=== PATIENT | female | born 1970 | race Caucasian/White ===

== ENCOUNTER 2017-02-03 15:49 | Emergency (ER) | payer BC ==
[2017-02-03 16:39] LABS: Hematocrit 43 % (35-47); Hemoglobin 14.6 g/dl (12.0-16.0); Mean Corpuscular HGB Conc 34 g/dl (31-36); Mean Corpuscular Hemoglobin 32 pg (27-31); Mean Corpuscular Volume 93 fL (80-97); Mean Platelet Volume 7 um3 (7.4-10.4); Red Blood Count 4.58 10^6/ul (4.0-5.4); Red Cell Distribution Width 13 % (10.5-15); White Blood Count 6.9 10^3/ul (3.5-10.8)
[2017-02-03 16:55] LABS: Albumin 4.2 g/dL (3.2-5.2); BUN/Creatinine Ratio 18.8 (8-20); Calcium 8.9 mg/dL (8.6-10.3); EGFR African American 99.8 (>60); EGFR Non-African American 77.6 (>60); Globulin 3.2 g/dL (2-4); Magnesium 2.4 mg/dL (1.9-2.7); Potassium 3.8 mmol/L (3.5-5.0); Total Bilirubin 0.5 mg/dL (0.2-1.0); Total Protein 7.4 g/dL (6.4-8.9)
[2017-02-03 16:56] LABS: Troponin I 0.01 ng/mL (<0.04)
[2017-02-03 17:34] LABS: TSH (Thyroid Stimulating Horm) 2.37 mcIU/mL (0.34-5.60)
--- NOTE | 2017-02-03 17:47 | RAD ---
Indication: Head fullness. CT of the brain was performed without IV contrast. Ventricular structures are midline. No midline shift is noted. The extraction spaces are unremarkable. There is no evidence of intracranial mass or hemorrhage. No other high or low density lesions are identified. Mastoid air cells and paranasal sinuses are unremarkable. IMPRESSION: No intracranial mass or hemorrhage is noted.
[2017-02-03] MEDS ORDERED: Amoxicillin/Clavulanate TAB* 875 MG PO ONE (18:36)
--- NOTE | 2017-02-03 18:46 | ED ---
Rayne Tolentino SooYoung, scribed for Zee Spencer MD on 02/03/17 at 1601 . Syncope/Near Syncope - HPI Summary HPI Summary: A 46 y/o F referred from [facility] [place] presents to ED with c/o near-syncopal episode onset this AM. felt off when she woke up and during driving. She felt as though she might pass out, describes it as "sleepy lids." Associated sx: neck stiffness , mild sinus pressure. Denies CP, GALLEGOS but says she has "pressure" in her head anterior and posterior. No slurred speech, no visual changes, no difficulty finding words, no weakness. Pert PMHx: migraines; whiplash. She saw the chiropractor three days ago. PCP is Dr. Ahmadi. Pert PMHx: HTN. She is scheduled to go to [place] for a week in a few days. - History Of Current Complaint Chief Complaint: EDSyncope Time Seen by Provider: 02/03/17 15:56 Hx Obtained From: Patient Onset/Duration: Still Present Activity At Onset: At Rest Associated Head Trauma: No Associated Signs And Symptoms: Other - see HPI - Allergies/Home Medications Allergies/Adverse Reactions: Allergies Allergy/AdvReac Type Severity Reaction Status Date / Time Latex Allergy makes Verified 02/03/17 16:19 eczema worse Sulfa Drugs AdvReac Intermediate DIZZINESS, Verified 02/03/17 16:19 N/V PMH/Surg Hx/FS Hx/Imm Hx Previously Healthy: No Endocrine/Hematology History: Denies: Hx Diabetes, Hx Thyroid Disease Cardiovascular History: Reports: Hx Hypertension - on meds, Other Cardiovascular Problems/Disorders - WAKING WITH CRAMPING IN CALVES 1 X WK Denies: Hx Pacemaker/ICD Respiratory History: Reports: Hx Sleep Apnea, Other Respiratory Problems/ Disorders - Sinus Infections Denies: Hx Asthma, Hx Chronic Obstructive Pulmonary Disease (COPD) GI History: Reports: Hx Hiatal Hernia Denies: Hx Ulcer History: Denies: Hx Renal Disease Sensory History: Denies: Hx Contacts or Glasses, Hx Hearing Aid Opthamlomology History: Denies: Hx Contacts or Glasses Neurological History: Reports: Hx Headaches - R/T LIQUID DIET, Hx Migraine - OCCASIONALLY Psychiatric History: Reports: Hx Anxiety Denies: Hx Attention Deficit Hyperactivity Disorder, Hx Eating Disorder, Hx Depression, Hx Panic Disorder, Hx Post Traumatic Stress Disorder, Hx Inpatient Treatment, Hx Community Mental Health Tx, Hx Schizophrenia, Hx Bipolar Disorder , Hx Suicide Attempt, Hx of Violent Episodes Against Others, Hx Substance Abuse , Other Psychiatric Issues/Disorders - Cancer History Hx Chemotherapy: No Hx Radiation Therapy: No - Surgical History Surgery Procedure, Year, and Place: gastric bypass Hx Anesthesia Reactions: No Infectious Disease History: Denies: Hx Clostridium Difficile, Hx Hepatitis, Hx Human Immunodeficiency Virus (HIV), Hx of Known/Suspected MRSA, Hx Shingles, Hx Tuberculosis, Hx Known/ Suspected VRE, Hx Known/Suspected VRSA, History Other Infectious Disease, Traveled Outside the US in Last 30 Days - Family History Known Family History: Positive: Cardiac Disease - [place] - father, Hypertension, Other - [place] - mother - Social History Occupation: Employed Full-time Lives: With Family Alcohol Use: Occasionally Hx Substance Use: No Substance Use Type: Reports: None Hx Tobacco Use: No Smoking Status (MU): Never Smoked Tobacco Review of Systems Negative: Fever Negative: Other - neg: visual changes Positive: Other - pos: mild sinus pressure Negative: Chest Pain Positive: Other - pos: neck stiffness Neurological: Other - pos: denies GALLEGOS but has anterior and posterior head pressure; neg: difficulty finding words Positive: Syncope - near-syncope. Negative: Weakness, Slurred Speech All Other Systems Reviewed And Are Negative: Yes Physical Exam Triage Information Reviewed: Yes Vital Signs On Initial Exam: Initial Vitals Temp Pulse Resp BP Pulse Ox 97.1 F 73 20 186/100 100 02/03/17 15:50 02/03/17 15:50 02/03/17 15:50 02/03/17 15:50 02/03/17 15:50 Vital Signs Reviewed: Yes Appearance: Positive: Well-Appearing, No Pain Distress Skin: Positive: Warm, Skin Color Reflects Adequate Perfusion, Dry Eyes: Positive: EOMI, YAQUELIN ENT: Positive: Pharynx normal, TMs normal Neck: Positive: Supple, Nontender Respiratory/Lung Sounds: Positive: Clear to Auscultation, Breath Sounds Present. Negative: Rales, Rhonchi, Wheezes Cardiovascular: Positive: RRR. Negative: Murmur, Rub, Other - no gallop Abdomen Description: Positive: Nontender, Soft. Negative: Distended, Guarding, Other: - neg: rebound Bowel Sounds: Positive: Present Musculoskeletal: Positive: Strength/ROM Intact. Negative: Edema Left, Edema Right Neurological: Positive: Sensory/Motor Intact, Alert, Oriented to Person Place, Time, CN Intact II-III Psychiatric: Positive: Affect/Mood Appropriate Diagnostics - Vital Signs Vital Signs Temp Pulse Resp BP Pulse Ox 02/03/17 15:50 97.1 F 73 20 186/100 100 - Laboratory Lab Results: Lab Results 02/03/17 02/03/17 Range/Units 16:25 16:25 WBC 6.9 (3.5-10.8) 10^3/ul RBC 4.58 (4.0-5.4) 10^6/ul Hgb 14.6 (12.0-16.0) g/dl Hct 43 (35-47) % MCV 93 (80-97) fL MCH 32 H (27-31) pg MCHC 34 (31-36) g/dl RDW 13 (10.5-15) % Plt Count 273 (150-450) 10^3/ul MPV 7 L (7.4-10.4) um3 Neut % (Auto) 56.7 (38-83) % Lymph % (Auto) 35.5 (25-47) % [place] % (Auto) 6.4 (1-9) % Eos % (Auto) 0.6 (0-6) % Baso % (Auto) 0.8 (0-2) % Absolute Neuts (auto) 3.9 (1.5-7.7) 10^3/ul Absolute Lymphs (auto) 2.4 (1.0-4.8) 10^3/ul Absolute Monos (auto) 0.4 (0-0.8) 10^3/ul Absolute Eos (auto) 0 (0-0.6) 10^3/ul Absolute Basos (auto) 0.1 (0-0.2) 10^3/ul Absolute Nucleated RBC 0 10^3/ul Nucleated RBC % 0 Sodium 136 (133-145) mmol/L Potassium 3.8 (3.5-5.0) mmol/L Chloride 104 (101-111) mmol/L Carbon Dioxide 24 (22-32) mmol/L Anion Gap 8 (2-11) mmol/L BUN 15 (6-24) mg/dL Creatinine 0.80 (0.51-0.95) mg/dL Est GFR ( Amer) 99.8 (>60) Est GFR (Non-Af Amer) 77.6 (>60) BUN/Creatinine Ratio 18.8 (8-20) Glucose 101 H (70-100) mg/dL Calcium 8.9 (8.6-10.3) mg/dL Magnesium 2.4 (1.9-2.7) mg/dL Total Bilirubin 0.50 (0.2-1.0) mg/dL AST 15 (13-39) U/L ALT 11 (7-52) U/L Alkaline Phosphatase 36 (34-104) U/L Troponin I 0.01 (<0.04) ng/mL Total Protein 7.4 (6.4-8.9) g/dL Albumin 4.2 (3.2-5.2) g/dL Globulin 3.2 (2-4) g/dL Albumin/Globulin Ratio 1.3 (1-3) TSH 2.37 (0.34-5.60) mcIU/mL Result Diagrams: 02/03/17 16:25 02/03/17 16:25 Lab Statement: Any lab studies that have been ordered have been reviewed, and results considered in the medical decision making process. - CT BRAIN CT CT Interpretation: No Acute Changes - IMPRESSION: No acute intracranial mass or hemorrhage is noted. CT Interpretation Completed By: Radiologist - EKG 1557 Cardiac Rate: NL - 69 EKG Rhythm: Sinus Rhythm EKG Interpretation: early R-wave progression EKG Comparison: Other - early R-wave progression is new compared to EKG from 05/29/2013 Re-Evaluation - Re-Evaluation 1 Re-Evaluation Time: 18:37 Change: Improved Comment: Discussing results and dispo with pt. Pt voiced understanding. Course/Dx Course Of Treatment: pt describes feeling like she couldn't stay awake more than she was passing out labs look good and ct looks good she does have pretty bad sinus pain and feels like she has a new infection abx ordered - Diagnoses Provider Diagnoses: Sinusitis Discharge - Discharge Plan Condition: Stable Disposition: HOME Prescriptions: Amoxicillin/Clavulanate TAB* [Augmentin TAB 875*] 875 mg PO BID #20 tab Cyclobenzaprine TAB* [Flexeril 10 MG TAB*] 10 mg PO TID PRN #30 tab PRN Reason: Spasms Naproxen [Naprosyn 500 mg] 500 mg PO BID PRN #20 tab PRN Reason: Pain Patient Education Materials: Cyclobenzaprine (By mouth), Amoxicillin/ Clavulanate Potassium (By mouth), Naproxen (By mouth), Near Syncope (ED) Referrals: Alfredito Ahmadi MD [Primary Care Provider] - Additional Instructions: Follow up with your primary care provider in the next 2-3 days. Please return to the ED for new or worsening symptoms. The documentation as recorded by the Rayne montgomery SooYoung accurately reflects the service I personally performed and the decisions made by me, Zee Spencer MD.
[2017-02-03 18:50] VITALS: BP 128/93
== END 2017-02-03 19:48 | disposition home or self-care (01) ==
LOC: ED 15:49
DX: J32.9 Chronic sinusitis, unspecified (principal); R55 Syncope and collapse
CPT/HCPCS: 36415; 70450; 80053; 83735; 84443; 84484; 85025; 93005; 99283; A9270-GY

== ENCOUNTER 2017-03-30 10:03 | Emergency (ER) | payer BC ==
[2017-03-30 10:12] VITALS: BP 166/98
[2017-03-30] MEDS ORDERED: Acetaminophen TAB* 325 MG PO ONE (10:49)
--- NOTE | 2017-03-30 10:55 | ED ---
Head Injury - HPI Summary HPI Summary: Pt here w/ fall downstairs last night - slipped on step while carrying laundry and fell back and onto Rt side. Pain in occipital region noticed more today. Nausea. Chronic neck pain and tough to tell if worse. Denies LOC, change in vision, photophobia, vomiting, numbness, tingling, weakness, change in behavior/ speech (per ). Also reports Rt elbow bruising - sore but moving well and bone is NTTP per pt. Rt foot instep sore as well - can bear weight w/o difficulty, no swelling, no numbness or tingling. Bones are also NTTP here. H/o head injuries over the years but nothing with residual effects - no formal dx of concussion. Last head injury last year - completely resolved. They report multiple people in family have fallen down stairs and are going to address this. - History Of Current Complaint Chief Complaint: EDGeneral Stated Complaint: FALL HEAD INJURY Time Seen by Provider: 03/30/17 10:20 Hx Obtained From: Patient, Family/Door Tender - Hx Last Menstrual Period: 01/30/16 Pain Intensity: 4 - Allergies/Home Medications Allergies/Adverse Reactions: Allergies Allergy/AdvReac Type Severity Reaction Status Date / Time Latex Allergy makes Verified 02/03/17 16:19 eczema worse Sulfa Drugs AdvReac Intermediate DIZZINESS, Verified 02/03/17 16:19 N/V PMH/Surg Hx/FS Hx/Imm Hx Previously Healthy: Yes Endocrine/Hematology History: Denies: Hx Anticoagulant Therapy, Hx Blood Disorders, Hx Diabetes, Hx Thyroid Disease, Hx Unexplained Bleeding Cardiovascular History: Reports: Hx Hypertension - on meds, Other Cardiovascular Problems/Disorders - h/o calf cramps Denies: Hx Pacemaker/ICD Respiratory History: Reports: Hx Sleep Apnea, Other Respiratory Problems/ Disorders - Sinus Infections Denies: Hx Asthma, Hx Chronic Obstructive Pulmonary Disease (COPD) GI History: Reports: Hx Hiatal Hernia, Other GI Disorders - gastric bypass surgery 2012 Denies: Hx Ulcer History: Denies: Hx Renal Disease Sensory History: Denies: Hx Contacts or Glasses, Hx Hearing Aid Opthamlomology History: Denies: Hx Contacts or Glasses Neurological History: Reports: Hx Headaches - R/T LIQUID DIET, Hx Migraine - OCCASIONALLY Psychiatric History: Reports: Hx Anxiety Denies: Hx Attention Deficit Hyperactivity Disorder, Hx Eating Disorder, Hx Depression, Hx Panic Disorder, Hx Post Traumatic Stress Disorder, Hx Inpatient Treatment, Hx Community Mental Health Tx, Hx Schizophrenia, Hx Bipolar Disorder , Hx Suicide Attempt, Hx of Violent Episodes Against Others, Hx Substance Abuse , Other Psychiatric Issues/Disorders - Cancer History Hx Chemotherapy: No Hx Radiation Therapy: No - Surgical History Surgery Procedure, Year, and Place: gastric bypass Hx Anesthesia Reactions: No Infectious Disease History: No Infectious Disease History: Denies: Hx Clostridium Difficile, Hx Hepatitis, Hx Human Immunodeficiency Virus (HIV), Hx of Known/Suspected MRSA, Hx Shingles, Hx Tuberculosis, Hx Known/ Suspected VRE, Hx Known/Suspected VRSA, History Other Infectious Disease, Traveled Outside the [place] in Last 30 Days - Family History Known Family History: Positive: Cardiac Disease - [place] - father, Hypertension, Other - [place] - mother - Social History Lives: With Family Alcohol Use: Weekly Hx Substance Use: No Substance Use Type: Reports: None Hx Tobacco Use: No Smoking Status (MU): Never Smoked Tobacco Review of Systems Constitutional: Negative Negative: Fatigue Eyes: Negative Negative: Photophobia, Blurred Vision, Diplopia Positive: Other - bit Lt side of tongue w/ fall - better today. Negative: Dental Pain - tiny chip in front tooth - NTTP, no laxity, no pain Cardiovascular: Negative Negative: Chest Pain Respiratory: Negative Negative: Shortness Of Breath, Cough Gastrointestinal: Negative Negative: Abdominal Pain, Vomiting, Diarrhea, Nausea Positive: no symptoms reported Musculoskeletal: Other - see HPI Positive: Bruising - see HPI Positive: Headache. Negative: Weakness, Paresthesia, Numbness, Syncope, Slurred Speech Psychological: Normal All Other Systems Reviewed And Are Negative: Yes Physical Exam Triage Information Reviewed: Yes Vital Signs On Initial Exam: Initial Vitals Temp Pulse Resp BP Pulse Ox 97.2 F 77 18 166/98 97 03/30/17 10:06 03/30/17 10:06 03/30/17 10:06 03/30/17 10:06 03/30/17 10:06 Vital Signs Reviewed: Yes Appearance: Positive: Well-Appearing, No Pain Distress, Well-Nourished Skin: Positive: Warm, Dry - ecchymosis over Rt dorsal elbow region- no edema, NTTP; FROM w/o pain or restriction; no skin breakdown; Rt foot is w/o edema, ecchymosis, skin breakdown Head/Face: Positive: Other - occipital region TTP - no lily edema, no step off , no battlesign - no skin changes appreciated in area Eyes: Positive: Normal, EOMI, YAQUELIN, Conjunctiva Clear ENT: Positive: Normal ENT inspection, Hearing grossly normal, Pharynx normal, TMs normal - no hemotympanum. Negative: Nasal drainage, Trismus Dental: Negative: Percussion Tenderness @, Dental Fracture @ Neck: Positive: Other: - hypertonic paracervical mm - spinous pp NTTP however difficult to report if pain felt is new or old; pain in head w/ Spurling on Lt - no lily sx into shoulder or arm Respiratory/Lung Sounds: Positive: Clear to Auscultation, Breath Sounds Present , Other - NTTP, no pain w/ deep breath. Negative: Rales, Rhonchi, Subcutaneous Emphysema, Stridor, Tracheal Deviation, Wheezes Cardiovascular: Positive: Normal, RRR, Pulses are Symmetrical in both Upper and Lower Extremities, S1, S2 Abdomen Description: Positive: Nontender, Soft Bowel Sounds: Positive: Present Musculoskeletal: Positive: Normal, Strength/ROM Intact Neurological: Positive: Normal, Sensory/Motor Intact, Alert, Oriented to Person Place, Time, CN Intact II-III, Reflexes Intact, Normal Gait, Finger to Nose, Facial Symmetry, Speech Normal, Other - heel to avalos normal. Negative: Pronator Drift Present Psychiatric: Positive: Normal - [place] Coma Scale Coma Scale Total: 15 Diagnostics - Vital Signs Vital Signs Temp Pulse Resp BP Pulse Ox 03/30/17 10:41 75 96 03/30/17 10:06 97.2 F 77 18 166/98 97 - Laboratory Lab Statement: Any lab studies that have been ordered have been reviewed, and results considered in the medical decision making process. Head Injury Course/Dx Course Of Treatment: Pt here w/ focal occipital head pain s/p fall. Dx'd w/ contusion and to monitor for s/sx of concussion. Reviewed danger s/sx of when to return to ED - otherwise, f/u w/ PCP. Neck pain is chronic and advise ongoing therapy as she is currently doing. CT revealed incidental finding of thyroid mass - discussed results w/ pt and need for f/u - she and agree w/ plan. - Diagnoses Provider Diagnoses: Fall down stairs, Head injury, Cervical strain, Contusion of right elbow, Contusion of right foot, Thyroid nodule Discharge - Discharge Plan Condition: Stable Disposition: HOME Patient Education Materials: Head Injury (ED), Contusion in Adults (ED), Thyroid Nodules (ED) Referrals: Alfredito Ahmadi MD [Primary Care Provider] - Additional Instructions: Your head injury appears to be clear of significant pathology - you do not appear to have a concussion or internal bleeding, skull fracture. You may treat this as a contusion - ice, acetaminophen as needed for pain and swelling. You may treat your foot and elbow the same but may elevate these for additional comfort as needed. If symptoms persist, follow-up with PCP. *If you develop change in vision, weakness, numbness, syncope, slurred speech, severe headache, vomiting, return to ED NOTE: your CT scan revealed an incidental finding of a thyroid nodule. It is advised that you follow-up with your PCP this week to further discuss plan. Your report was provided to you today.
--- NOTE | 2017-03-30 11:24 | RAD ---
HISTORY: Fall, head pain February 03, 2017 COMPARISONS: None TECHNIQUE: Multiple contiguous axial CT scans were obtained of the head without intravenous contrast. FINDINGS: HEMORRHAGE/INFARCT: There is no hemorrhage or acute infarct. MASSES/SHIFT: There is no mass or shift. EXTRA-AXIAL SPACES: There are no extra-axial fluid collections. SULCI AND VENTRICLES: The sulci and ventricles are normal in size and position for the patient's stated age. CEREBRUM: There are no focal parenchymal abnormalities. BRAINSTEM: There are no focal parenchymal abnormalities. CEREBELLUM: There are no focal parenchymal abnormalities. VESSELS: The vessels are grossly normal. PARANASAL SINUSES: The paranasal sinuses are clear. ORBITS: The orbits are unremarkable. BONES AND SOFT TISSUE: No bone or soft tissue abnormalities are noted. OTHER: None IMPRESSION: NO ACUTE INTRACRANIAL PATHOLOGY.
--- NOTE | 2017-03-30 11:29 | RAD ---
HISTORY: Fall, occipital pain COMPARISONS: None TECHNIQUE: Multiple contiguous axial CT scans were obtained of the cervical spine without intravenous contrast, with coronal and sagittal multiplanar reformations. FINDINGS: BRAIN: The visualized brain is unremarkable CENTRAL CANAL: Evaluation of the central canal is limited on CT technique; however, there is no obvious canalicular mass or epidural hemorrhage. ALIGNMENT: The alignment is normal, without subluxation or dislocation. VERTEBRAL BODIES: The odontoid process is intact. The atlantoaxial intervals are symmetric. The vertebral bodies are normal in attenuation, without fracture. JOINTS: There is no subluxation or dislocation. MUSCULATURE: Unremarkable INTERVERTEBRAL DISCS: There is diffuse loss of intervertebral disc height. AXIAL IMAGES: C2-C3: There is no osseous neural foraminal narrowing or central canal stenosis. C3-C4: There is no osseous neural foraminal narrowing or central canal stenosis. C4-C5: There is no osseous neural foraminal narrowing or central canal stenosis. C5-C6: There is no osseous neural foraminal narrowing or central canal stenosis. C6-C7: There is no osseous neural foraminal narrowing or central canal stenosis. C7-T1: There is no osseous neural foraminal narrowing or central canal stenosis. SOFT TISSUES: The prevertebral fat stripe is preserved. There is a 3.1 cm left thyroid nodule OTHER: None. IMPRESSION: 1. NO ACUTE OSSEOUS INJURY TO THE CERVICAL SPINE. 2. 3.1 CM LEFT THYROID NODULE. RECOMMEND CORRELATION WITH DEDICATED IMAGING OF THE THYROID IN THE NONACUTE SETTING.
== END 2017-03-30 13:04 | disposition home or self-care (01) ==
LOC: ED 10:03
DX: S09.90XA Unspecified injury of head, initial encounter (principal); S16.1XXA Strain of muscle, fascia and tendon at neck level, initial encounter; S50.01XA Contusion of right elbow, initial encounter; E04.1 Nontoxic single thyroid nodule; R51 Headache; W10.9XXA Fall (on) (from) unspecified stairs and steps, initial encounter; Y93.9 Activity, unspecified; Y92.9 Unspecified place or not applicable; Y99.9 Unspecified external cause status
CPT/HCPCS: 70450; 72125; 99282; A9270-GY

== ENCOUNTER 2017-06-25 08:55 | Emergency (ER) | payer BC ==
--- OUTSIDE RECORDS SUMMARY | 2017-06-25 09:12 | XMS REPORT ---
:1970 External Reference #:[id number] Author Organization [facility] Address [address] [place] [address] Phone [phone] Care Team Providers Name Role Phone Alfredito Ahmadi M.D. Care Team Information Sales Agent Financial Report Service Unavailable Alfredito Ahmadi M.D. Primary Care Physician Unavailable Payers Type Date Identification Numbers Payment Provider Subscriber Commercial Policy Number: [id number] [facility] Angie Harden Group Number: [id number] 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 Cigarette Use Never smoked cigarettes Cigars Does not smoke cigars Pipe Does not smoke a pipe Smokeless Tobacco Does not use smokeless tobacco Alcohol Drinks alcohol occasionally Smoking Patient is a former smoker Allergies, Adverse Reactions, Alerts Date Description Reaction Status Severity Comments 09/02/2008 Sulfa Skin Rashes/Hives active Medications Medication Date Status Form Strength Qnty SIG Indications Ordering Provider Fluticasone 01/07/ Active Suspension 50mcg/Act 1mont 2 sprays Carlos Propionate 2013 h each adarsh Smallwood MD daily Metoprolol / Active 75mg Unknown Succinate 0000 Cetirizine HCL / Active Unknown 10 MG 0000 Vesicare / Active Tablets 10mg 1 by Darlow, 0000 mouth Alfredito every day M.D. Montelukast / Active Tablets 10mg 1 by Darlow, Sodium 0000 mouth Alfredito every day M.D. Fluticasone / Active 50mcg 2 sprays Darlow, Nasal [place] 0000 each side Alfredito twice a M.D. day Elidel / Active Cream 1% as needed Unknown 0000 Triamcinolone / Active Cream 0.1% twice a Unknown Acetonide 0000 day Melatonin / Active Capsules 5mg take as Unknown 0000 directed Prozac / Active Capsules 20mg as Unknown 0000 directed Vitamin B12 / Active Tablets Sub 3000mcg as Unknown 0000 directed Calcium + D3 / Active Unknown 0000 Avapro // Hx Unknown - 2012 Flonase // Hx Unknown - 2012 Zyrtec / Hx Unknown - 2012 Fluoxetine / Hx Unknown 2012 Losartan / Hx Unknown Potassium 100 0000 - MG 2016 Fluticasone / Hx 50mcg Unknown Propionate 0000 - 2016 Vital Signs Date Vital Result Comment 05/30/2017 Weight 144.00 lb Weight in kg's 65.318 Height 65 inches 5'5" Height in cm's 165.1 cm BMI (Body Mass Index) 24.0 kg/m2 01/07/2013 BP Systolic 156 mmHg BP Diastolic 80 mmHg Heart Rate 68 /min Respiratory Rate 16 /min Weight 279.00 lb Weight in kg's 126.554 Height 65 inches 5'5" Height in cm's 165.1 cm BMI (Body Mass Index) 46.4 kg/m2 10/28/2008 Heart Rate 80 /min Respiratory Rate 18 /min Weight 175.00 lb Weight in kg's 79.380 09/24/2008 Heart Rate 80 /min Respiratory Rate 16 /min Weight 175.00 lb Weight in kg's 79.380 09/02/2008 Heart Rate 72 /min Respiratory Rate 16 /min Body Temperature 175.0 F Results Description No Information Procedures Date CPT Code Description Status 01/07/2013 21440 Nasal Endoscopy, Diagnostic Completed 09/24/2008 24206 Excision Turbinates, Partial Or Complete Completed 09/02/2008 16615 Tympanometry Completed 09/02/2008 35418 Comprehensive Audiogram Completed Encounters Type Date Location Provider CPT E/M Dx Office Visit 05/30/2017 3:00p [place],After 06/24/07 [place] [address] E04.1 Office Visit 01/07/2013 3:00p [place],After 06/24/07 [place] [address] 478.0 477.8 327.23 Office Visit 10/28/2008 3:30p [place],After 06/24/07 [place] [address] 478.0 401.9 Office Visit 09/02/2008 2:30p [place],After 06/24/07 [place] [address] 401.9 381.81 389.10 478.0 472.0 Plan of Care No Information Available
[2017-06-25 13:22] VITALS: BP 154/97
--- NOTE | 2017-06-25 17:37 | ED ---
Ab Tolentino Angela, scribed for Lizbeth Nicholas MD on 06/25/17 at 1010 . Substance Abuse/Use - HPI Summary HPI Summary: This pt is a 47 y/o female presenting to [facility] for alcohol detox. Pt reports she has been an alcoholic for 2 years, after her mother . Denies any other drug abuse. Pt notes she drinks a bottle (750 ml) of wine a day. She states she has been drinking more than normal during this holiday season. She reports she has been waking up shaking. Pt additionally notes headache and blurry vision. Her last alcohol drink was yesterday at 19:00. Pt notes her shaking has been getting better. She denies fever, chills, plopia, ear ache, chest pain, SOB, constipation, hematuria, swelling in LE. No prior detox. No suicidal gestures. She denies SI thoughts/plan. Pt would like a private detox center. Pt is currently on 50 mg of Zoloft for anxiety. PSHx includes gastric bypass 4 years ago. - History Of Current Complaint Chief Complaint: EDDetoxRequest Stated Complaint: EVALUATION ALCOHOL Time Seen by Provider: 06/25/17 09:42 Hx Obtained From: Patient Hx Last Menstrual Period: 01/30/16 Onset/Duration of Drug/ETOH Abuse: Weeks Ingestion History: Amount Ingested - 1 bottle of wine/day Overdose Characteristics: Oral Timing Of Abuse: Daily Severity Currently: Moderate Character: Depressed Aggravating Factor(s): Other - holiday season Associated Signs And Symptoms: Tremulous - Allergies/Home Medications Allergies/Adverse Reactions: Allergies Allergy/AdvReac Type Severity Reaction Status Date / Time Latex Allergy makes Verified 06/25/17 09:03 eczema worse Sulfa Drugs AdvReac Intermediate DIZZINESS, Verified 06/25/17 09:03 N/V PMH/Surg Hx/FS Hx/Imm Hx Endocrine/Hematology History: Denies: Hx Anticoagulant Therapy, Hx Blood Disorders, Hx Diabetes, Hx Thyroid Disease, Hx Anemia, Hx Unexplained Bleeding Cardiovascular History: Reports: Hx Hypertension - on meds, Other Cardiovascular Problems/Disorders - h/o calf cramps Denies: Hx Pacemaker/ICD Respiratory History: Reports: Hx Sleep Apnea, Other Respiratory Problems/ Disorders - Sinus Infections Denies: Hx Asthma, Hx Chronic Obstructive Pulmonary Disease (COPD) GI History: Reports: Hx Hiatal Hernia, Other GI Disorders - gastric bypass surgery 2012 Denies: Hx Jaundice, Hx Ulcer History: Denies: Hx Renal Disease Sensory History: Denies: Hx Contacts or Glasses, Hx Hearing Aid Opthamlomology History: Denies: Hx Contacts or Glasses Neurological History: Reports: Hx Headaches - R/T LIQUID DIET, Hx Migraine - OCCASIONALLY Psychiatric History: Reports: Hx Anxiety Denies: Hx Attention Deficit Hyperactivity Disorder, Hx Eating Disorder, Hx Depression, Hx Panic Disorder, Hx Post Traumatic Stress Disorder, Hx Inpatient Treatment, Hx Community Mental Health Tx, Hx Schizophrenia, Hx Bipolar Disorder , Hx Suicide Attempt, Hx of Violent Episodes Against Others, Hx Substance Abuse , Other Psychiatric Issues/Disorders - Cancer History Hx Chemotherapy: No Hx Radiation Therapy: No - Surgical History Surgery Procedure, Year, and Place: gastric bypass Hx Anesthesia Reactions: No Infectious Disease History: Yes Infectious Disease History: Denies: Hx Clostridium Difficile, Hx Hepatitis, Hx Human Immunodeficiency Virus (HIV), Hx of Known/Suspected MRSA, Hx Shingles, Hx Tuberculosis, Hx Known/ Suspected VRE, Hx Known/Suspected VRSA, History Other Infectious Disease, Traveled Outside the [place] in Last 30 Days - Family History Known Family History: Positive: Cardiac Disease - [place] - father, Hypertension, Other - [place] - mother - Social History Alcohol Use: Occasionally Hx Substance Use: No Substance Use Type: Reports: None Hx Tobacco Use: No Smoking Status (MU): Never Smoked Tobacco Review of Systems Constitutional: Other - shaking Negative: Fever Positive: Blurred Vision. Negative: Diplopia Negative: Sore Throat, Ear Ache Negative: Chest Pain Negative: Shortness Of Breath Negative: Abdominal Pain, Other - constipation Negative: dysuria, hematuria Negative: Edema Negative: Rash, Bruising Positive: Headache All Other Systems Reviewed And Are Negative: No Physical Exam - Summary Physical Exam Summary: Appearance: Alert, conversive, nontoxic appearing Skin: Warm, dry, no mottling, no rashes, no contusions HEENT: EOMI, PERRL, moist mucous membranes Neck: No masses on the neck, supple Respiratory: Clear to auscultation, breath sounds present, no rales, no rhonchi , no wheezes Cardiovascular: RRR, pulses are symmetrical in both lower and upper extremities Abdomen: Soft, non-tender Bowel Sounds: Present Musculoskeletal: No CVA tenderness, no obvious deformity, moving all extremities in a grossly normal manner Neurological: A&Ox3, CN II-XII Intact, moving all extremities symmetrically Psychiatric: Normal affect and mood Triage Information Reviewed: Yes Vital Signs On Initial Exam: Initial Vitals Temp Pulse Resp BP Pulse Ox 97.6 F 94 17 178/117 97 06/25/17 09:03 18 09:03 06/25/17 09:03 06/25/17 09:03 06/25/17 09:03 Vital Signs Reviewed: Yes Diagnostics - Vital Signs Vital Signs Temp Pulse Resp BP Pulse Ox 06/25/17 09:03 97.6 F 94 17 178/117 97 - Laboratory Lab Statement: Any lab studies that have been ordered have been reviewed, and results considered in the medical decision making process. - EKG 09:45 Cardiac Rate: NL EKG Rhythm: Sinus Rhythm - at 73 bpm EKG Interpretation: Normal QRS. Normal QTc. Normal ST-T waves Re-Evaluation - Re-Evaluation First Eval Re-Evaluation Time: 12:09 Comment: Pt's blood pressure has decreased to 152/95. Pt spoke with transition social worker. Second Eval Re-Evaluation Time: 13:12 Comment: I informed the pt that I was unable to prescribe her Xanax due to technical difficulties. She is advised to see her PCP to have one prescribed. Course/Dx - Course Course Of Treatment: This pt is a 47 y/o female presenting to [facility] for alcohol detox. Pt reports she has been an alcoholic for 2 years, after her mother . Denies any other drug abuse. Pt notes she drinks a bottle (750 ml) of wine a day. She states she has been drinking more than normal during this holiday season. She reports she has been waking up shaking. Pt additionally notes headache and blurry vision. Her last alcohol drink was yesterday at 19: 00. Pt notes her shaking has been getting better. On initial encounter, pulse rate is 85. Pt is a little hypertensive. aircraft lay out worker consulted with the pt. aircraft lay out worker provided pt with AA schedule, contact information for [facility], and [place] so that she can easily search for a private counselor. On re-eval pt's blood pressure has improved to 152/95. I tried to prescribe the pt Xanax but was unable to due to technical difficult with IT. I explained to the pt that she needs to see her PCP to have it prescribed. Pt will be discharged home and is advised to follow up as an outpatient with an [facility] detox center. - Diagnoses Provider Diagnoses: Alcohol abuse Discharge - Discharge Plan Condition: Stable Disposition: HOME Patient Education Materials: Alcohol Use Disorder (ED) Referrals: Alfredito Ahmadi MD [Primary Care Provider] - Additional Instructions: Please follow up with your primary care physician and the outpatient alcohol detox centers. REturn if worse or any new symptoms. Discuss with your doctor the need for outpatient benzodiazepines for the next 1-3 days. Take all other medications as previously instructed. The documentation as recorded by the Ab montgomery Angela accurately reflects the service I personally performed and the decisions made by , Lizbeth Nicholas MD.
== END 2017-06-25 13:22 | disposition home or self-care (01) ==
LOC: ED 08:55
DX: F10.10 Alcohol abuse, uncomplicated (principal); Z88.2 Allergy status to sulfonamides
CPT/HCPCS: 93005; 99283

== ENCOUNTER 2018-05-12 12:48 | Inpatient (IN) | payer BC ==
--- NOTE | 2018-05-12 13:07 | ED ---
Psychiatric Complaint - HPI Summary HPI Summary: This pt is a 48 y/o female [facility] c/o worsening depression over the past few years. Pt reports she has SI thoughts. Pt states she has reached the point of having written a note and sitting down with a bottle of pills, but notes "I didn't end up doing it." Denies HI thoughts/plan. Pt does not have a psychiatrist. She reports she has been drinking alcohol every day now for the past one year. Last night she drank a "big bottle" of wine. Denies prior attempt of suicide in the past. PMHx: HTN, gastric bypass. Pt is on antihypertensive medication and Sertraline 75 mg. Denies tobacco and drug use. - History Of Current Complaint Chief Complaint: EDMentalHealth Time Seen by Provider: 05/12/18 12:58 Hx Obtained From: Patient Hx Last Menstrual Period: 01/30/16 Onset/Duration: Lasting Weeks, Still Present Timing: Weeks Severity Currently: Severe Character: Depressed Aggravating Factor(s): Recent Stress, Alcohol Use Alleviating Factor(s): Nothing Associated Signs And Symptoms: Positive: Negative Related History: Positive For: Prior Psychiatric Issues Has Suicidal: Reports: Thoughts. Denies: With A Plan Has Homicidal: Denies: Thoughts, With A Plan - Allergies/Home Medications Allergies/Adverse Reactions: Allergies Allergy/AdvReac Type Severity Reaction Status Date / Time MS Latex [Latex] Allergy makes Verified 06/25/17 09:03 eczema worse MS Sulfa Drugs [Sulfa Drugs] AdvReac Intermediate DIZZINESS, Verified 06/25/17 09:03 N/V PMH/Surg Hx/FS Hx/Imm Hx Endocrine/Hematology History: Denies: Hx Anticoagulant Therapy, Hx Blood Disorders, Hx Diabetes, Hx Thyroid Disease, Hx Anemia, Hx Unexplained Bleeding Cardiovascular History: Reports: Hx Hypertension - on meds, Other Cardiovascular Problems/Disorders - h/o calf cramps Denies: Hx Pacemaker/ICD Respiratory History: Reports: Hx Sleep Apnea, Other Respiratory Problems/ Disorders - Sinus Infections Denies: Hx Asthma, Hx Chronic Obstructive Pulmonary Disease (COPD) GI History: Reports: Hx Hiatal Hernia, Other GI Disorders - gastric bypass surgery 2012 Denies: Hx Jaundice, Hx Ulcer History: Denies: Hx Renal Disease Sensory History: Denies: Hx Contacts or Glasses, Hx Hearing Aid Opthamlomology History: Denies: Hx Contacts or Glasses Neurological History: Reports: Hx Headaches - R/T LIQUID DIET, Hx Migraine - OCCASIONALLY Psychiatric History: Reports: Hx Anxiety Denies: Hx Attention Deficit Hyperactivity Disorder, Hx Eating Disorder, Hx Depression, Hx Panic Disorder, Hx Post Traumatic Stress Disorder, Hx Inpatient Treatment, Hx Community Mental Health Tx, Hx Schizophrenia, Hx Bipolar Disorder , Hx Suicide Attempt, Hx of Violent Episodes Against Others, Hx Substance Abuse , Other Psychiatric Issues/Disorders - Cancer History Hx Chemotherapy: No Hx Radiation Therapy: No - Surgical History Surgery Procedure, Year, and Place: gastric bypass Hx Anesthesia Reactions: No Infectious Disease History: No Infectious Disease History: Denies: Hx Clostridium Difficile, Hx Hepatitis, Hx Human Immunodeficiency Virus (HIV), Hx of Known/Suspected MRSA, Hx Shingles, Hx Tuberculosis, Hx Known/ Suspected VRE, Hx Known/Suspected VRSA, History Other Infectious Disease, Traveled Outside the in Last 30 Days - Family History Known Family History: Positive: Cardiac Disease - [place] - father, Hypertension, Other - [place] - mother Family History: Father and mother with depression. Father with alcoholism, [place]. - Social History Alcohol Use: Daily Alcohol Amount: daily for the past 1 year Hx Substance Use: No Substance Use Type: Reports: None Hx Tobacco Use: No Smoking Status (MU): Never Smoked Tobacco Review of Systems Negative: Fever, Chills Positive: Palpitations Respiratory: Negative Gastrointestinal: Negative Psychological: Other - POS: SI thoughts Positive: Depressed. Negative: Other - SI plan, HI thoughts/plan All Other Systems Reviewed And Are Negative: Yes Physical Exam - Summary Physical Exam Summary: VITAL SIGNS: Reviewed. GENERAL: Patient is a well-developed and nourished female. Patient is not in any acute respiratory distress. HEAD AND FACE: No signs of trauma. No ecchymosis, hematomas or skull depressions. No sinus tenderness. EYES: PERRLA, EOMI x 2, No injected conjunctiva, no nystagmus. EARS: Hearing grossly intact. Ear canals and tympanic membranes are within normal limits. MOUTH: Oropharynx within normal limits. NECK: Supple, trachea is midline, no adenopathy, no JVD, no carotid bruit, no c- spine tenderness, neck with full ROM. CHEST: Symmetric, no tenderness at palpation LUNGS: Clear to auscultation bilaterally. No wheezing or crackles. CVS: Regular rate and rhythm, S1 and S2 present, no murmurs or gallops appreciated. ABDOMEN: Soft, non-tender. No signs of distention. No rebound, no guarding, and no masses palpated. Bowel sounds are normal. EXTREMITIES: FROM in all major joints, no edema, no cyanosis or clubbing. NEURO: Alert and oriented x 3. No acute neurological deficits. Speech is normal and follows commands. SKIN: Dry and warm Triage Information Reviewed: Yes Vital Signs On Initial Exam: Initial Vitals Temp Pulse Resp BP Pulse Ox 97.2 F 84 16 185/100 98 05/12/18 12:51 05/12/18 12:51 05/12/18 12:51 05/12/18 12:51 05/12/18 12:51 Vital Signs Reviewed: Yes Diagnostics - Vital Signs Vital Signs Temp Pulse Resp BP Pulse Ox 05/12/18 12:51 97.2 F 84 16 185/100 98 - Laboratory Result Diagrams: 05/12/18 13:34 05/12/18 13:34 Lab Statement: Any lab studies that have been ordered have been reviewed, and results considered in the medical decision making process. Re-Evaluation - Re-Evaluation First Eval Re-Evaluation Time: 14:03 Comment: Pt is medically cleared for a MHE. Course/Dx - Course Assessment/Plan: This pt is a 48 y/o female presenting to [facility] c/o worsening depression over the past few years. Pt reports she has SI thoughts. Pt states she has reached the point of having written a note and sitting down with a bottle of pills, but notes "I didn't end up doing it." Denies HI thoughts/plan. Pt does not have a psychiatrist. She reports she has been drinking alcohol every day now for the past one year. Last night she drank a "big bottle" of wine. Denies prior suicide attempts in the past. PMHx: HTN, gastric bypass. Pt is on antihypertensive medication and Sertraline 75 mg. Denies tobacco and drug use. Pt has been on Zoloft for the past 4-5 years and with the same dose. Blood work w/o a significant abnormality. She is medically cleared. She is awaiting for a MHE. Patient is hemodynamically stable and A+Ox3. The pt will be admitted to Dr. Zuniga-psychiatrist with a final dx of depression. - Differential Dx/Clinical Impression Differential Diagnosis/HQI/PQRI: Positive: Anxiety, Depression, Suicidal Ideation Provider Diagnosis: Depression Discharge - Sign-Out/Discharge Documenting (check all that apply): Patient Departure - Admit - Discharge Plan Condition: Stable Disposition: ADMITTED TO [facility] Referrals: Alfredito Ahmadi MD [Primary Care Provider] - - Billing Disposition and Condition Condition: STABLE Disposition: Admitted to [facility] - Attestation Statements Document Initiated by Scribe: Yes Documenting Scribe: Alicia Berger Provider For Whom Meme is Documenting (Include Credential): Alexandre Ivey MD Scribe Attestation: Alicia Tolentino, scribed for Alexandre Ivey MD on 05/12/18 at 1819. Scribe Documentation Reviewed: Yes Provider Attestation: The documentation as recorded by the scribeAlicia accurately reflects the service I personally performed and the decisions made by me, Alexandre Ivey MD
--- OUTSIDE RECORDS SUMMARY | 2018-05-12 13:35 | XMS REPORT ---
:1970 External Reference #:[id number] Author Organization [facility] Address [address] [place] [address] Phone [phone] Care Team Providers Name Role Phone Alfredito Ahmadi MD Care Team Information Tobacco Conditioner Unavailable Alfredito Ahmadi MD Primary Care Physician Unavailable Payers Type Date Identification Numbers Payment Provider Subscriber Commercial Effective: Policy Number: BC/BS Of [employer]rien 2017 [id number] [employer] Name: [employer] [address] [address] PayID: [id number] [place] [address] Problems Date Description Provider Status Onset: 06/13/2006 Essential hypertension Alfredito Ahmadi M.D. Active Onset: 06/13/2006 Blood in urine Alfredito Ahmadi M.D. Active Onset: 06/13/2006 Mixed hyperlipidemia Alfredito Ahmadi M.D. Active Onset: 07/14/2014 Allergic rhinitis Alfredito Ahmadi M.D. Active Onset: 05/04/2015 Adjustment disorder with depressed Alfredito Ahmadi M.D. Active mood Onset: 04/28/2016 Dysthymic disorder Alfredito Ahmadi M.D. Active Family History Date Family Member(s) Problem(s) Comments Father Hypertension Father Coronary Artery Disease (CAD) Father mi 2007 stents x 13 Mother Hypertension Mother due to Cancer () - heart failure Mother Carcinoid Tumor First Brother Patent foramen ovale Social History Type Date Description Comments Living Situation Lives with male partner Cigarette Use Nonsmoker ETOH Use Currently consumes alcohol 1 bottle of wine a night , last drink last night , plans counseling Smoking Patient has never smoked Allergies, Adverse Reactions, Alerts Date Description Reaction Status Severity Comments 08/19/2001 Sulfa Drugs active Medications Medication Date Status Form Strength Qnty SIG Indications Ordering Provider Advair Diskus 05/06 Active Aerosol 250-50mcg 60uni 1 puff R05 Pebbles /Dose ts twice a Sabra, day, RESEARCH AND DEVELOPMENT SCIENTIST rinse after Cheratussin ac 05/06 Active Syrup 100-10mg/ 118ml 5-10 R0 5ML millilite Sabra, rs by RESEARCH AND DEVELOPMENT SCIENTIST mouth every night at bedtime as needed cough Sertraline HCL 06/25 Active Tablets 50mg 45tab Take 1 F43.21 Alfredito A. /2017 s And 06/25 Darlow, Tablets M.D. By Mouth One Time Daily Flonase Allergy 04/19 Active Suspension 50mcg/Act 15.80 2 each J30.0 Alfredito A. Relief 0ml nostril Darlow, every day M.D. Montelukast 11/06 Active Tablets 10mg 90tab take 1 J30.9 Alfredito A. Sodium s tablet by Darlow, mouth M.D. once daily Metoprolol 03/05 Active Tablets ER 50mg 90tab Take 1 I10 Alfredito A. Succinate ER /2011 24HR s Tablet By Darlow, Mouth M.D. Every Day Zyrtec Allergy Active Tablets 10mg 90tab 1 po qd Unknown /0000 Dispers s Multivitamins Active Capsules 1 po bid Unknown /0000 Vitamin B-12 Active Tablets 1000mcg /2 by Unknown /0000 mouth every day Amoxicillin/Clav 11/11 Hx Tablets 875-125mg 14tab 1 by J01.90 Luis Manuel dominguez s mouth Klarissa Potassium - twice a Fluconazole 11/11 Hx Tablets 150mg 2tabs one J01.Tiffanie Edward weekly as Klarissa - needed. 05/06 Klonopin 06/25 Hx Tablets 0.5mg 10tab /2-1 tab F41.0 Zee s by mouth Geno, - twice a Afnp-C 06/30 day needed anxiety/ panic Labs 05/29 Hx TSH, free E04.9 Alfredito A. T4, Galdino, - sediminta M.D. 05/30 tion rate, cbc stat Ciprofloxacin 03/02 Hx Tablets 250mg 14tab 1 tab by Estrada F. HCL s mouth Shallish, - twice a M.D. 03/12 day x days Phenazopyridine 03/02 Hx Tablets 100mg 15tab take 1-2 Estrada F. HCL s tablets Shallish, - by mouth M.D. 04/15 3 times per day for 2 days after meals for urinary tract pain Sertraline HCL 02/18 Hx Tablets 25mg 180ta take 1 by F43.21 Alfredito A. bs mouth in , - the M.D. 06/25 morning, can increase to 2 by mouth in the morning if necessary in 2 weeks Amoxicillin/Clav 07/16 Hx Tablets 875-125mg 20tab 1 by J01.90 Page dominguez s mouth Abigail, Potassium - twice a RESEARCH AND DEVELOPMENT SCIENTIST 10/28 day food Cefuroxime 06/11 Hx Tablets 500mg 28tab 1 by J01.90 Page Axetil s mouth Abigail, - twice a RESEARCH AND DEVELOPMENT SCIENTIST 07/16 day x days Physical Therapy 06/04 Hx treatment M54.2 Alfredito A. and Galdino, - evaluatio M.D. 06/16 n neck pain Naproxen 06/04 Hx Tablets 500mg 30tab take 1 M54.2 Alfredito A. /2015 s tablet Galdino, - twice M.D. 06/16 daily needed Orphenadrine 06/04 Hx Tablets ER 100mg 30tab take one M54.2 Alfredito A. Citrate ER 12HR s tablet by Galdino, - mouth M.D. 10/28 twice day as needed for muscle spasm Cefuroxime 07/18 Hx Tablets 500mg 28tab 1 by J01.90 Page Axetil s mouth Abigail, - twice a RESEARCH AND DEVELOPMENT SCIENTIST 04/28 day x days Sertraline HCL 05/04 Hx Tablets 25mg 60tab take 1 by F43.21 Alfredito A. s mouth in Galdino, - the M.D. 04/28 morning, can increase to 2 by mouth in the morning if necessary in 2 weeks Amoxicillin 05/04 Hx Suspension 250mg/5ML 300cc 2tsp po Zee Rec tid Geno, - Afnp-C 05/14 Blood Pressure 06/15 Hx please 401.9 Pebbles Cuff dispense Sabra, - one blood RESEARCH AND DEVELOPMENT SCIENTIST 10/21 pressure monitor, large, thank you Augmentin 11/06 Hx Tablets 875-125mg 28tab 1 po bid 461.9 Page s with food Abigail, - x 14d RESEARCH AND DEVELOPMENT SCIENTIST 10/21 Augmentin 10/14 Hx Tablets 500-125mg 20tab 1 po bid Luis Manuel J. /2012 s Cecil Valenzuela M.D. 11/06 Flonase 10/14 Hx Suspension 50mcg/Act 32uni 2 each J30.0 Luis Manuel JNahomy ts nostril Bianca, - every day M.D. 04/19 Ciprofloxacin 06/25 Hx Tablets 500mg 10tab 1 po bid 599.0 Vaishnavi HCL s x 5 days Rosamaria - Afnp-Mireya 06/30 Losartan 03/05 Hx Tablets 100mg 90tab take 1 401.9 Alfredito A. s tablet by Galdino, - mouth M.D. 10/21 daily Augmentin 06/06 Hx Tablets 875-125mg 28tab 1 po bid 461.9 s with food Abigail, - x 14d RESEARCH AND DEVELOPMENT SCIENTIST 03/05 Xanax 11/03 Hx Tablets 0.25mg 30tab 1 po bid 311 Alfredito A. s as Galdino - directed M.DNahomy 06/06 thirty Fluoxetine HCL 11/03 Hx Capsules 40mg 1 po qd 311 Alfredito A. Cecil Ahmadi M.DNahomy 06/06 Triamcinolone 11/03 Hx Ointment 0.5% 30gr apply bid 782.1 Alfredito A. Acetonide x 2 weeks Cecil Ahmadi M.D. 11/17 Fluoxetine 08/30 Hx Capsules 20mg 30cap 1 qd 311 Alfredito A. Cecil Miranda M.D. 11/03 Zoloft 04/13 Hx Tablets 50mg 30tab 1 po qd 311 Alfredito A. Cecil Miranda M.D. 08/30 Cleocin Vaginal 09/18 Hx Suppositor 100mg 3unit 1 008.49 Page s Supposito Abigail, - ry RESEARCH AND DEVELOPMENT SCIENTIST 01/14 Intravagi dimitrios At hs X 3D Prozac 08/14 Hx Capsules 10mg 45cap 1 po 300.01 Zee s alternati Geno, - ng with 2 Afnp-C 04/13 po qod Avapro 07/01 Hx Tabs 150mg 30tab Take 1 401.9 s Tablet By Cecil Ahmadi M.Any 03/05 Once Daily Guaifenesin 06/07 Hx Caplets 600mg 20cap One 381.01 s Tablet Rosamaria, - bid Afnp-C 06/17 Norvasc 04/10 Hx Tablets 5mg 30tab 1 po qd 401.9 Alfredito A. Cecil Miranda M.D. 07/01 Control 06/26 Hx Tablets 1 PO qd [facility] Amoxicillin 08/22 Hx 500mg 30uni 1 Tab tid ts X 10 Days Rosamaria, - Afnp-C 09/01 Robitussin ac 08/22 Hx 4Oz 1-2 tsp po q4h Geno, - prn cough Afnp-C 01/24 Entex Pse 03/31 Hx 20uni 1 bid prn ts Sinus Geno, - congestio Afnp-C 04/10 Tylenol #3 01/24 Hx 10uni 1 or 2 q Pebbles /2004 ts 4h prn von Rajesh, - pain M.DNahomy 08/22 Penicillin VK 05/14 Hx 500mg 40uni 1 po qid ts x 10 days Rosamaria, - Afnp-C 05/24 Augmentin 04/27 Hx 875mg 20uni 1 po bid Alfredito A. Cecil Diaz M.D. 05/07 Extendryl SR 04/27 Hx Capsules 20cap 1 bid Alfredito A. Cecil Miranda M.D. 05/07 Prozac 03/01 Hx 20mg 90uni 1 PO qd Nina R shae Arreguin - RESEARCH AND DEVELOPMENT SCIENTIST-C 08/31 Penicillin VK 07/04 Hx 5Oomg 30uni 1 PO tid Andrea T. Cecil He M.D. 11/24 Kenalog 04/28 Hx 0.1% Oint 15gm apply bid Cecil Blank Afnp-C 11/24 Zyrtec 12/11 Hx Tabs 10mg 30tab 1 po qd Alfredito A. s prn Cecil Ahmadi M.D. 06/10 Flonase 12/11 Hx One 1-2 spray Alfredito A. q nostril Galdino, - qd M.DNahomy 03/05 Amoxicillin 08/19 Hx Tablets 500mg 30tab 1 tablet s 3 times [facility], - daily x Afnp-C 07/06 10 days /2005 Joanie 04/23 Hx 60mg 60uni bid prn Andrea T. Cecil He M.D. 11/24 Joanie-D 04/23 Hx 60uni bid prn Andrea T. Cecil He M.D. 11/24 Calcium + D Hx Tablets occassion Unknown /0000 ally - 06/04 Vesicare Hx Tablets 10mg 1 by Unknown /0000 mouth - every 05/06 other day /2017 Augmentin Hx Tablets 875-125mg 1 by Unknown /0000 mouth - twice a 02/18 day x days Cyclobenzaprine Hx Tablets 10mg take one Unknown HCL /0000 tablet by - mouth 11/10 times a day as needed Naproxen Hx Tablets 500mg take 1 Unknown /0000 tablet by - mouth 11/10 twice a day with food Immunizations CPT Code Status Date Vaccine Lot # [id number] Given 03/21/2018 Influenza Vac, Quadriv[place], [place] [address] Given 03/22/2017 Influenza Vac, [place]riv[place], [place] [address] Given 10/29/2016 Tdap Tetanus, W Pertussis [id number] 69118 Given 03/23/2016 Influenza [place], [place] [id number] Given 03/30/2015 Influenza Vac, Quadriv[place], [place] [address] Given 03/24/2014 DO Not Use Split Influenza Virus Vaccine [id number] Given 04/10/2013 DO Not Use Split Influenza Virus Vaccine 67341 Given 06/10/2007 Hep A Adlt Immunization [id number] 68259 Given 06/07/2006 DO Not Use Split Influenza Virus Vaccine [id number] 53893 Given 04/10/2006 Tetanus And Diptheria Adult Preservative Free [id number] >7Yrs 02387 Given 05/08/2005 DO Not Use Split Influenza Virus Vaccine 97139 Given 04/27/2003 DO Not Use Split Influenza Virus Vaccine 97606 Given 04/27/2003 DO Not Use Split Influenza Virus Vaccine Vital Signs Date Vital Result Comment 05/06/2018 BP Systolic 110 mmHg BP Diastolic 80 mmHg Heart Rate 64 /min Body Temperature 97.3 F Respiratory Rate 16 /min Height 64.25 inches 5'4.25" Weight 154.00 lb BMI (Body Mass Index) 26.2 kg/m2 11/11/2017 BP Systolic 130 mmHg BP Diastolic 80 mmHg Heart Rate 76 /min Body Temperature 98.6 F Respiratory Rate 16 /min Height 64.25 inches 5'4.25" Weight 143.00 lb BMI (Body Mass Index) 24.4 kg/m2 06/25/2017 BP Systolic 184 mmHg BP Diastolic 96 mmHg Heart Rate 84 /min Body Temperature 98.8 F Respiratory Rate 16 /min Height 64.25 inches 5'4.25" Weight 144.00 lb BMI (Body Mass Index) 24.5 kg/m2 05/29/2017 BP Systolic 124 mmHg BP Diastolic 80 mmHg Heart Rate 72 /min Body Temperature 98.4 F Respiratory Rate 16 /min Height 64.25 inches 5'4.25" Weight 144.00 lb BMI (Body Mass Index) 24.5 kg/m2 05/09/2017 BP Systolic 160 mmHg BP Diastolic 80 mmHg Heart Rate 68 /min Respiratory Rate 16 /min Height 64.25 inches 5'4.25" 04/15/2017 BP Systolic 140 mmHg 170/90 on arrival BP Diastolic 88 mmHg 170/90 on arrival Heart Rate 60 /min Body Temperature 98.1 F Respiratory Rate 16 /min Height 64.25 inches 5'4.25" Weight 146.25 lb BMI (Body Mass Index) 24.9 kg/m2 03/02/2017 BP Systolic 160 mmHg BP Diastolic 80 mmHg Heart Rate 74 /min Body Temperature 98.1 F Respiratory Rate 16 /min Height 64.25 inches 5'4.25" Weight 145.00 lb BMI (Body Mass Index) 24.7 kg/m2 02/18/2017 BP Systolic 130 mmHg BP Diastolic 70 mmHg Heart Rate 74 /min Body Temperature 98.1 F Respiratory Rate 16 /min Height 64.25 inches 5'4.25" 02/04/2017 BP Systolic 118 mmHg BP Diastolic 70 mmHg Heart Rate 68 /min Body Temperature 97.3 F Respiratory Rate 16 /min Height 64.25 inches 5'4.25" Weight 145.00 lb BMI (Body Mass Index) 24.7 kg/m2 10/29/2016 BP Systolic 136 mmHg 156/92 BP Diastolic 82 mmHg 156/92 Heart Rate 70 /min Body Temperature 97.9 F Respiratory Rate 16 /min Height 64.25 inches 5'4.25" Weight 145.12 lb BMI (Body Mass Index) 24.7 kg/m2 07/16/2016 BP Systolic 110 mmHg BP Diastolic 70 mmHg Heart Rate 68 /min Body Temperature 98.6 F Respiratory Rate 18 /min Weight 141.00 lb 06/11/2016 BP Systolic 128 mmHg BP Diastolic 72 mmHg Heart Rate 68 /min Body Temperature 97.4 F Respiratory Rate 16 /min Height 64.25 inches 5'4.25" Weight 145.00 lb BMI (Body Mass Index) 24.7 kg/m2 06/04/2016 BP Systolic 146 mmHg BP Diastolic 90 mmHg Heart Rate 72 /min Body Temperature 97.8 F Respiratory Rate 16 /min Height 64.25 inches 5'4.25" Weight 145.00 lb BMI (Body Mass Index) 24.7 kg/m2 04/28/2016 BP Systolic 124 mmHg BP Diastolic 74 mmHg Heart Rate 68 /min Body Temperature 98.0 F Respiratory Rate 16 /min Height 64.25 inches 5'4.25" Weight 140.00 lb BMI (Body Mass Index) 23.8 kg/m2 07/18/2015 BP Systolic 122 mmHg BP Diastolic 70 mmHg Heart Rate 64 /min Body Temperature 97.9 F Respiratory Rate 16 /min Height 64.25 inches 5'4.25" Weight 128.00 lb BMI (Body Mass Index) 21.8 kg/m2 05/04/2015 BP Systolic 124 mmHg BP Diastolic 80 mmHg Heart Rate 64 /min Body Temperature 98.2 F Respiratory Rate 16 /min Height 64.25 inches 5'4.25" Weight 136.00 lb BMI (Body Mass Index) 23.2 kg/m2 07/14/2014 BP Systolic 130 mmHg BP Diastolic 88 mmHg Heart Rate 56 /min Body Temperature 97.6 F Respiratory Rate 12 /min Height 64.25 inches 5'4.25" Weight 134.00 lb BMI (Body Mass Index) 22.8 kg/m2 05/04/2014 BP Systolic 100 mmHg BP Diastolic 70 mmHg Heart Rate 72 /min Body Temperature 98.5 F Respiratory Rate 18 /min Height 66 inches 5'6" stated Weight 142.00 lb BMI (Body Mass Index) 22.9 kg/m2 12/01/2013 BP Systolic 132 mmHg BP Diastolic 88 mmHg Heart Rate 66 /min Body Temperature 96.9 F Respiratory Rate 16 /min Height 66 inches 5'6" stated Weight 193.00 lb BMI (Body Mass Index) 31.1 kg/m2 10/21/2013 BP Systolic 120 mmHg BP Diastolic 80 mmHg Heart Rate 80 /min Body Temperature 97.3 F Respiratory Rate 16 /min Height 66 inches 5'6" stated Weight 206.00 lb BMI (Body Mass Index) 33.2 kg/m2 06/15/2013 BP Systolic 134 mmHg BP Diastolic 82 mmHg Heart Rate 76 /min Body Temperature 97.5 F Respiratory Rate 18 /min Height 66 inches 5'6" stated Weight 264.12 lb BMI (Body Mass Index) 42.6 kg/m2 11/06/2012 BP Systolic 136 mmHg BP Diastolic 80 mmHg Heart Rate 78 /min Body Temperature 97.7 F Respiratory Rate 16 /min Height 66 inches 5'6" stated Weight 277.12 lb BMI (Body Mass Index) 44.7 kg/m2 10/14/2012 BP Systolic 144 mmHg BP Diastolic 90 mmHg Heart Rate 76 /min Body Temperature 98.1 F Height 66 inches 5'6" stated Weight 281.00 lb BMI (Body Mass Index) 45.3 kg/m2 06/25/2012 BP Systolic 138 mmHg BP Diastolic 90 mmHg Heart Rate 76 /min Height 66 inches 5'6" stated Weight 274.00 lb BMI (Body Mass Index) 44.2 kg/m2 03/27/2012 BP Systolic 160 mmHg BP Diastolic 92 mmHg Heart Rate 80 /min Body Temperature 97.8 F Respiratory Rate 20 /min Height 66 inches 5'6" stated Weight 271.00 lb BMI (Body Mass Index) 43.7 kg/m2 03/05/2012 BP Systolic 176 mmHg BP Diastolic 94 mmHg Heart Rate 84 /min Body Temperature 99.3 F Height 66 inches 5'6" stated Weight 272.00 lb BMI (Body Mass Index) 43.9 kg/m2 06/06/2009 BP Systolic 110 mmHg BP Diastolic 80 mmHg Heart Rate 60 /min Body Temperature 98.8 F Weight 238.00 lb 08/30/2008 BP Systolic 140 mmHg BP Diastolic 88 mmHg Heart Rate 68 /min Body Temperature 98.3 F Respiratory Rate 12 /min Weight 199.00 lb 05/25/2008 BP Systolic 138 mmHg BP Diastolic 80 mmHg Heart Rate 72 /min Height 66 inches 5'6" Weight 179.00 lb BMI (Body Mass Index) 28.9 kg/m2 04/13/2008 BP Systolic 116 mmHg BP Diastolic 70 mmHg Heart Rate 68 /min Height 66 inches 5'6" Weight 180.00 lb BMI (Body Mass Index) 29.0 kg/m2 09/03/2007 Heart Rate 72 /min Height 66 inches 5'6" 09/03/2007 BP Systolic 134 mmHg BP Diastolic 76 mmHg Body Temperature 97.7 F Height 66 inches 5'6" 06/10/2007 BP Systolic 128 mmHg BP Diastolic 72 mmHg Heart Rate 72 /min Body Temperature 97.4 F Respiratory Rate 16 /min Height 66 inches 5'6" Weight 208.00 lb BMI (Body Mass Index) 33.6 kg/m2 01/14/2007 BP Systolic 124 mmHg BP Diastolic 70 mmHg Heart Rate 84 /min Body Temperature 97.9 F Height 66 inches 5'6" Weight 247.00 lb BMI (Body Mass Index) 39.9 kg/m2 09/18/2006 BP Systolic 130 mmHg BP Diastolic 90 mmHg Body Temperature 98.3 F Height 66 inches 5'6" Weight 250.00 lb BMI (Body Mass Index) 40.3 kg/m2 08/14/2006 BP Systolic 118 mmHg BP Diastolic 82 mmHg Heart Rate 84 /min Respiratory Rate 16 /min Height 66 inches 5'6" Weight 252.00 lb BMI (Body Mass Index) 40.7 kg/m2 06/13/2006 BP Systolic 122 mmHg BP Diastolic 80 mmHg Heart Rate 76 /min Respiratory Rate 16 /min Height 66 inches 5'6" 06/07/2006 BP Systolic 140 mmHg BP Diastolic 88 mmHg Body Temperature 99.1 F Height 66 inches 5'6" Weight 252.00 lb BMI (Body Mass Index) 40.7 kg/m2 05/09/2006 BP Systolic 130 mmHg BP Diastolic 80 mmHg Heart Rate 72 /min Respiratory Rate 18 /min Height 66 inches 5'6" Weight 252.00 lb BMI (Body Mass Index) 40.7 kg/m2 04/25/2006 BP Systolic 130 mmHg BP Diastolic 84 mmHg Heart Rate 76 /min Body Temperature 98.6 F Height 66 inches 5'6" 04/10/2006 BP Systolic 150 mmHg BP Diastolic 110 mmHg Heart Rate 68 /min Height 66 inches 5'6" Weight 245.00 lb BMI (Body Mass Index) 39.5 kg/m2 06/26/2005 BP Systolic 112 mmHg BP Diastolic 60 mmHg Body Temperature 98.5 F Height 66 inches 5'6" 08/22/2004 BP Systolic 112 mmHg BP Diastolic 72 mmHg Heart Rate 68 /min Body Temperature 99.5 F Height 66 inches 5'6" 03/31/2004 BP Systolic 118 mmHg BP Diastolic 68 mmHg Heart Rate 78 /min Body Temperature 98.2 F Height 66 inches 5'6" Weight 200.00 lb BMI (Body Mass Index) 32.3 kg/m2 01/25/2004 BP Systolic 128 mmHg BP Diastolic 82 mmHg Heart Rate 82 /min Height 66 inches 5'6" Weight 204.00 lb BMI (Body Mass Index) 32.9 kg/m2 09/01/2003 BP Systolic 124 mmHg BP Diastolic 64 mmHg Heart Rate 68 /min Height 66 inches 5'6" Weight 193.00 lb BMI (Body Mass Index) 31.1 kg/m2 05/14/2003 BP Systolic 128 mmHg BP Diastolic 72 mmHg Heart Rate 64 /min Body Temperature 100.1 F Height 66 inches 5'6" 04/27/2003 BP Systolic 110 mmHg BP Diastolic 88 mmHg Heart Rate 68 /min Body Temperature 97.3 F Height 66 inches 5'6" Weight 190.00 lb BMI (Body Mass Index) 30.7 kg/m2 03/01/2003 BP Systolic 124 mmHg BP Diastolic 80 mmHg Heart Rate 82 /min Height 66 inches 5'6" 07/04/2002 BP Systolic 130 mmHg BP Diastolic 90 mmHg Heart Rate 80 /min Body Temperature 99.2 F Height 66 inches 5'6" Weight 201.00 lb BMI (Body Mass Index) 32.4 kg/m2 04/28/2002 BP Systolic 122 mmHg BP Diastolic 86 mmHg Heart Rate 96 /min Height 66 inches 5'6" Weight 200.00 lb BMI (Body Mass Index) 32.3 kg/m2 08/19/2001 BP Systolic 132 mmHg BP Diastolic 80 mmHg Body Temperature 98.5 F Height 66 inches 5'6" Weight 208.00 lb BMI (Body Mass Index) 33.6 kg/m2 04/07/2001 BP Systolic 112 mmHg BP Diastolic 82 mmHg Heart Rate 80 /min Body Temperature 97.6 F Respiratory Rate 14 /min Height 66 inches 5'6" Weight 236.00 lb BMI (Body Mass Index) 38.1 kg/m2 Results Test Date Test Result H/L Range Note Laboratory test 12/18/2017 Cytology SEE RESULT BELOW 1 finding Laboratory test 06/13/2017 Cytology Non-Log Sorter SEE RESULT BELOW 2 finding CBC No Diff 05/29/2017 White Blood Count 5.5 10^3/uL 3.5-10.8 Red Blood Count 4.26 10^6/uL 4.0-5.4 Hemoglobin 13.5 g/dL 12.0-16.0 Hematocrit 40 % 35-47 Mean Corpuscular Volume 94 fL 80-97 Mean Corpuscular Hemoglobin 32 pg High 27-31 Mean Corpuscular HGB Conc 34 g/dL 31-36 Red Cell Distribution Width 14 % 10.5-15 Platelet Count 244 10^3/uL 150-450 Mean Platelet Volume 7 um3 Low 7.4-10.4 Laboratory test finding 05/29/2017 Erythrocyte Sed Rate 10 mm/Hr 0-14 TSH (Thyroid Stim Horm) 1.81 mcIU/mL 0.34-5.60 Free T4 (Free Thyroxine) 0.88 ng/dL 0.61-1.12 Ua - Non Micro (Fma) 03/15/2017 Appearance clear Color yellow Glucose, Urine (Fma/CMC/CTX) neg Bilirubin neg Ketones neg SP Grav 1.010 Blood neg PH 7.0 Protein neg Urobil 0.2 Nitrite neg Leukocytes (Fma/[facility]rex) neg Ua - Micro (a) 03/02/2017 Appearance cloudy Color yellow Glucose, Urine (a/CMC/CTX) neg Bilirubin neg Ketones neg SP Grav 1.025 Blood large PH 6.5 Protein 3+ Urobil 0.2 Nitrite pos Leukocytes (Fma/CMC/[facility]rex) large Hyaline - /Lpf Granular - /Lpf WBC (a,[facility]rex) >100 RBC >50 Mucus - /Lpf Epith rare /Lpf Bacteria 4+ /Hpf Amorphous - /Lpf Crystals, Fluid (a/CMC/CTX) - CBC Auto Diff 02/03/2017 White Blood Count 6.9 10^3/uL 3.5-10.8 Red Blood Count 4.58 10^6/uL 4.0-5.4 Hemoglobin 14.6 g/dL 12.0-16.0 Hematocrit 43 % 35-47 Mean Corpuscular Volume 93 fL 80-97 Mean Corpuscular Hemoglobin 32 pg High 27-31 Mean Corpuscular HGB Conc 34 g/dL 31-36 Red Cell Distribution Width 13 % 10.5-15 Platelet Count 273 10^3/uL 150-450 Mean Platelet Volume 7 um3 Low 7.4-10.4 Abs Neutrophils 3.9 10^3/uL 1.5-7.7 Abs Lymphocytes 2.4 10^3/uL 1.0-4.8 Abs Monocytes 0.4 10^3/uL 0-0.8 Abs Eosinophils 0 10^3/uL 0-0.6 Abs Basophils 0.1 10^3/uL 0-0.2 Abs Nucleated RBC 0 10^3/uL Granulocyte % 56.7 % 38-83 Lymphocyte % 35.5 % 25-47 Monocyte % 6.4 % 1-9 Eosinophil % 0.6 % 0-6 Basophil % 0.8 % 0-2 Nucleated Red Blood Cells % 0 Comp Metabolic Panel 02/03/2017 Sodium 136 mmol/L 133-145 Potassium 3.8 mmol/L 3.5-5.0 Chloride 104 mmol/L 101-111 Co2 Carbon Dioxide 24 mmol/L 22-32 Anion Gap 8 mmol/L 2-11 Glucose 101 mg/dL High 70-100 Blood Urea Nitrogen 15 mg/dL 6-24 Creatinine 0.80 mg/dL 0.51-0.95 BUN/Creatinine Ratio 18.8 8-20 Calcium 8.9 mg/dL 8.6-10.3 Total Protein 7.4 g/dL 6.4-8.9 Albumin 4.2 g/dL 3.2-5.2 Globulin 3.2 g/dL 2-4 Albumin/Globulin Ratio 1.3 1-3 Total Bilirubin 0.50 mg/dL 0.2-1.0 Alkaline Phosphatase 36 U/L 34-104 Alt 11 U/L 7-52 Ast 15 U/L 13-39 Egfr Non- 77.6 >60 Egfr 99.8 >60 3 Laboratory test finding 02/03/2017 Magnesium 2.4 mg/dL 1.9-2.7 Troponin I 0.01 ng/mL <0.04 TSH (Thyroid Stim Horm) 2.37 mcIU/mL 0.34-5.60 Comprehensive Metabolic Prof 04/28/2016 Sodium 139 mEq/L 134-149 Potassium 5.3 mEq/L 3.6-5.5 Chloride 100 mEq/L 94-112 Carbon Dioxide 24 mEq/L 21-32 Glucose 99 mg/dL 70-105 BUN 13 mg/dL 6-26 Creatinine 0.7 mg/dL 0.6-1.4 BUN/Creat Ratio 18.6 CALC 8.0-36.0 Calcium 9.7 mg/dL 8.6-10.2 Total Protein 7.5 g/dL 6.4-8.3 Albumin 4.6 g/dL 3.8-5.5 Globulin 2.9 g/dL 2.0-4.8 A/G Ratio 1.6 CALC 0.6-2.3 Alk. Phosphatase 35 U/L 30-110 Alt (SGPT) 14 U/L 7-35 Ast (Sgot) 14 U/L 5-34 Total Bilirubin 1.0 mg/dL 0.2-1.3 GFR Non- >60 ml/min/1.73m^ >=60 GFR >60 ml/min/1.73m^ >=60 Laboratory test finding 04/28/2016 TSH 1.55 mIU/L 0.50-6.00 Complete Blood Count 04/28/2016 WBC 5.1 x10^3/UL 3.6-9.6 RBC 4.67 x10^6/UL 3.90-5.70 HGB 14.9 g/dL 12.1-17.2 HCT 44 % 36-50 MCV 94.0 fL 82.2-97.4 MCH 31.8 pg 27.6-33.3 MCHC 34.0 g/dL 33.0-35.5 RDW 13.7 % 11.6-13.7 PLT 263 x10^3/UL 150-400 MPV 5.8 fL Low 7.4-10.4 Gran # 3.0 x10^3/UL 1.5-7.2 Lymph# 1.8 x10^3/UL 0.7-4.9 Noble# 0.3 x10^3/UL 0.1-0.9 Gran % 56.3 % 42.2-75.2 Lymph % 36.9 % 20.5-51.1 Noble% 6.8 % 1.7-9.3 Lipid Profile 04/28/2016 Cholesterol 204 mg/dL High 120-200 Triglycerides 104 mg/dL 30-200 HDL Cholesterol 73 mg/dL 30-85 LDL (Calculated) 110 CALC 0-129 VLDL Cholesterol 21 mg/dL 0-50 HDL Risk Factor 2.8 CALC 0.0-4.4 Laboratory test finding 05/25/2014 Vitamin B1 Whole Blood 140 nmol/L 70- 180 4, 5 Vitamin E Level 15.7 mg/L 5.5 - 17.0 4, 6 Vitamin D, 25 Hydroxy 05/25/2014 25-Hydroxy Vitamin D2 <4.0 ng/mL 4 25-Hydroxy Vitamin D3 37 ng/mL 4 25-Hydroxy Vitamin D Total 37 ng/mL 4, 7 CBC Auto Diff 05/25/2014 White Blood Count 7.5 10^3/uL 4.8-10.8 4 Red Blood Count 4.64 10^6/uL 4.0-5.4 4 Hemoglobin 13.2 g/dL 12.0-16.0 4 Hematocrit 40 % 35-47 4 Mean Corpuscular Volume 86 fL 80-97 4 Mean Corpuscular Hemoglobin 29 pg 27-31 4 Mean Corpuscular HGB Conc 33 g/dL 31-36 4 Red Cell Distribution Width 15 % 10.5-15 4 Platelet Count 312 10^3/uL 150-450 4 Mean Platelet Volume 8 um3 7.4-10.4 4 Abs Neutrophils 4.5 10^3/uL 1.5-7.7 4 Abs Lymphocytes 2.5 10^3/uL 1.0-4.8 4 Abs Monocytes 0.4 10^3/uL 0-0.8 4 Abs Eosinophils 0.1 10^3/uL 0-0.6 4 Abs Basophils 0 10^3/uL 0-0.2 4 Abs Nucleated RBC 0 10^3/uL 4 Granulocyte % 59.2 % 38-83 4 Lymphocyte % 33.5 % 25-47 4 Monocyte % 5.5 % 1-9 4 Eosinophil % 1.2 % 0-6 4 Basophil % 0.6 % 0-2 4 Nucleated Red Blood Cells % 0 4 Comp Metabolic Panel 05/25/2014 Sodium 137 mmol/L 133-145 4 Potassium 3.5 mmol/L 3.5-5.0 4, 8 Chloride 105 mmol/L 101-111 4 Co2 Carbon Dioxide 26 mmol/L 22-32 4 Anion Gap 6 mmol/L 2-11 4 Glucose 85 mg/dL 70-100 4 Blood Urea Nitrogen 14 mg/dL 6-24 4 Creatinine 0.67 mg/dL 0.51-0.95 4 BUN/Creatinine Ratio 20.9 High 8-20 4 Calcium 9.0 mg/dL 8.6-10.3 4 Total Protein 6.4 g/dL 6.4-8.9 4 Albumin 3.7 g/dL 3.2-5.2 4 Globulin 2.7 g/dL 2-4 4 Albumin/Globulin Ratio 1.4 1-3 4 Total Bilirubin 0.60 mg/dL 0.2-1.0 4 Alkaline Phosphatase 29 U/L Low 34-104 4 Alt 14 U/L 7-52 4 Ast 13 U/L 13-39 4 Egfr Non- 96.1 >60 4 Egfr 123.5 >60 4, 9 Laboratory test finding 05/25/2014 Ferritin < 10.0 ng/mL Low 11-307 4, 10 Vitamin B12 942 pg/mL High 180-914 4, 11 Folate > 20.00 ng/mL >3.99 4, 12 Iron & Iron Binding Capacity 05/25/2014 Iron 107 g/dL 50-212 4 Unsaturated Iron Binding 236 g/dL 4 Total Iron Binding Capacity 343 g/dL 250-450 4 % Iron Saturation 31 % 15-55 4 Laboratory test finding 03/25/2014 Copper 1.38 g/mL 0.75-1.45 13, 14 Vitamin B1 Whole Blood 144 nmol/L 70-180 13, 15 Vitamin E Level 12.1 mg/L 5.5 - 17.0 13, 16 Vitamin D, 25 Hydroxy 03/25/2014 25-Hydroxy Vitamin D2 <4.0 ng/mL 13 25-Hydroxy Vitamin D3 48 ng/mL 13 25-Hydroxy Vitamin D Total 48 ng/mL 13, 17 CBC Auto Diff 03/25/2014 White Blood Count 7.1 10^3/uL 4.8-10.8 13 Red Blood Count 4.51 10^6/uL 4.0-5.4 13 Hemoglobin 13.0 g/dL 12.0-16.0 13 Hematocrit 39 % 35-47 13 Mean Corpuscular Volume 86 fL 80-97 13 Mean Corpuscular Hemoglobin 29 pg 27-31 13 Mean Corpuscular HGB Conc 34 g/dL 31-36 13 Red Cell Distribution Width 15 % 10.5-15 13 Platelet Count 296 10^3/uL 150-450 13 Mean Platelet Volume 8 um3 7.4-10.4 13 Abs Neutrophils 4.4 10^3/uL 1.5-7.7 13 Abs Lymphocytes 2.2 10^3/uL 1.0-4.8 13 Abs Monocytes 0.4 10^3/uL 0-0.8 13 Abs Eosinophils 0.1 10^3/uL 0-0.6 13 Abs Basophils 0 10^3/uL 0-0.2 13 Abs Nucleated RBC 0.01 10^3/uL 13 Granulocyte % 62.3 % 38-83 13 Lymphocyte % 30.9 % 25-47 13 Monocyte % 5.0 % 1-9 13 Eosinophil % 1.1 % 0-6 13 Basophil % 0.7 % 0-2 13 Nucleated Red Blood Cells % 0.1 13 Comp Metabolic Panel 03/25/2014 Sodium 138 mmol/L 133-145 13 Potassium 3.7 mmol/L 3.7-5.6 13 Chloride 105 mmol/L 101-111 13 Co2 Carbon Dioxide 28 mmol/L 22-32 13 Anion Gap 5 mmol/L 2-11 13 Glucose 90 mg/dL 70-100 13 Blood Urea Nitrogen 13 mg/dL 6-24 13 Creatinine 0.70 mg/dL 0.51-0.95 13 BUN/Creatinine Ratio 18.6 8-20 13 Calcium 8.9 mg/dL 8.6-10.3 13 Total Protein 6.4 g/dL 6.4-8.9 13 Albumin 3.6 g/dL 3.2-5.2 13 Globulin 2.8 g/dL 2-4 13 Albumin/Globulin Ratio 1.3 1-3 13 Total Bilirubin 0.60 mg/dL 0.2-1.0 13 Alkaline Phosphatase 31 U/L Low 34-104 13 Alt 13 U/L 7-52 13 Ast 13 U/L 13-39 13 Egfr Non- 91.8 >60 13 Egfr 118.0 >60 13, 18 Laboratory test finding 03/25/2014 Ferritin < 10.0 ng/mL Low 11-307 13, 19 Vitamin B12 792 pg/mL 180-914 13, 20 Folate > 20.00 ng/mL >3.99 13, 21 Iron & Iron Binding Capacity 03/25/2014 Iron 72 g/dL 50-212 13 Unsaturated Iron Binding 284 g/dL 13 Total Iron Binding Capacity 356 g/dL 250-450 13 % Iron Saturation 20 % 15-55 13 Lipid Profile (Trig/Chol/HDL) 03/25/2014 Triglycerides 112 mg/dL 13, 22 Cholesterol 122 mg/dL 13, 23 HDL Cholesterol 31.5 mg/dL 13, 24 LDL Cholesterol 68 mg/dL 13, 25 CBC Auto Diff 11/23/2013 White Blood Count 6.0 10^3/uL 4.8-10.8 Red Blood Count 4.80 10^6/uL 4.0-5.4 Hemoglobin 13.0 g/dL 12.0-16.0 Hematocrit 40 % 35-47 Mean Corpuscular Volume 83 fL 80-97 Mean Corpuscular Hemoglobin 27 pg 27-31 Mean Corpuscular HGB Conc 33 g/dL 31-36 Red Cell Distribution Width 17 % High 10.5-15 Platelet Count 314 10^3/uL 150-450 Mean Platelet Volume 8 um3 7.4-10.4 Abs Neutrophils 3.6 10^3/uL 1.5-7.7 Abs Lymphocytes 2.0 10^3/uL 1.0-4.8 Abs Monocytes 0.4 10^3/uL 0-0.8 Abs Eosinophils 0.1 10^3/uL 0-0.6 Abs Basophils 0.1 10^3/uL 0-0.2 Abs Nucleated RBC 0 10^3/uL Granulocyte % 58.9 % 38-83 Lymphocyte % 32.8 % 25-47 Monocyte % 6.3 % 1-9 Eosinophil % 1.0 % 0-6 Basophil % 1.0 % 0-2 Nucleated Red Blood Cells % 0.1 Laboratory test finding 11/23/2013 Vitamin B1 Whole Blood 115 nmol/L 70- 180 26 Vitamin E Level 12.1 mg/L 5.5 - 17.0 27 Comp Metabolic Panel 11/23/2013 Sodium 137 mmol/L 133-145 Potassium 4.1 mmol/L 3.7-5.6 Chloride 104 mmol/L 101-111 Co2 Carbon Dioxide 29 mmol/L 22-32 Anion Gap 4 mmol/L 2-11 Glucose 87 mg/dL 70-100 Blood Urea Nitrogen 10 mg/dL 6-24 Creatinine 0.69 mg/dL 0.51-0.95 BUN/Creatinine Ratio 14.5 8-20 Calcium 9.1 mg/dL 8.6-10.3 Total Protein 6.8 g/dL 6.4-8.9 Albumin 3.9 g/dL 3.2-5.2 Globulin 2.9 g/dL 2-4 Albumin/Globulin Ratio 1.3 1-3 Total Bilirubin 0.50 mg/dL 0.2-1.0 Alkaline Phosphatase 41 U/L 34-104 Alt 14 U/L 7-52 Ast 14 U/L 13-39 Egfr Non- 93.3 >60 Egfr 120.0 >60 28 Iron & Iron Binding Capacity 11/23/2013 Iron 49 g/dL Low 50-212 Unsaturated Iron Binding 315 g/dL Total Iron Binding Capacity 364 g/dL 250-450 % Iron Saturation 13 % Low 15-55 Vitamin D, 25 Hydroxy 11/23/2013 25-Hydroxy Vitamin D2 <4.0 ng/mL 25-Hydroxy Vitamin D3 39 ng/mL 25-Hydroxy Vitamin D Total 39 ng/mL 29 Laboratory test finding 11/23/2013 Ferritin < 10.0 ng/mL Low 11-307 30 Vitamin B12 771 pg/mL 180-914 31 Folate > 20.00 ng/mL >3.99 32 Comp Metabolic Panel 05/29/2013 Sodium 133 mmol/L 133-145 Potassium 3.9 mmol/L 3.5-5.0 Chloride 98 mmol/L Low 101-111 Co2 Carbon Dioxide 26.0 mmol/L 22-32 Anion Gap 9.0 mmol/L 2-11 Glucose 85 mg/dL 70-100 Blood Urea Nitrogen 13 mg/dL 6-24 Creatinine 0.80 mg/dL 0.50-1.40 BUN/Creatinine Ratio 16.3 8-20 Calcium 9.1 mg/dL 8.1-9.9 Total Protein 6.3 g/dL 6.2-8.1 Albumin 3.9 g/dL 3.6-5.4 Globulin 2.4 g/dL 2-4 Albumin/Globulin Ratio 1.6 1-3 Total Bilirubin 0.8 mg/dL 0.4-1.5 Alkaline Phosphatase 52 U/L 30-110 Alt 26 U/L 14-54 Ast 27 U/L 12-42 Egfr Non- 78.7 >60 Egfr 101.2 >60 33 CBC Auto Diff 05/29/2013 White Blood Count 12.9 10^3/uL High 4.8-10.8 Red Blood Count 4.64 10^6/uL 4.0-5.4 Hemoglobin 13.2 g/dL 12.0-16.0 Hematocrit 40 % 35-47 Mean Corpuscular Volume 87 fL 80-97 Mean Corpuscular Hemoglobin 28 pg 27-31 Mean Corpuscular HGB Conc 33 g/dL 31-36 Red Cell Distribution Width 13 % 10.5-15 Platelet Count 436 10^3/uL 150-450 Mean Platelet Volume 7 um3 Low 7.4-10.4 Abs Neutrophils 8.4 10^3/uL High 1.5-7.7 Abs Lymphocytes 3.7 10^3/uL 1.0-4.8 Abs Monocytes 0.6 10^3/uL 0-0.8 Abs Eosinophils 0.1 10^3/uL 0-0.6 Abs Basophils 0.1 10^3/uL 0-0.2 Abs Nucleated RBC 0.01 10^3/uL Granulocyte % 65.5 % 38-83 Lymphocyte % 28.9 % 25-47 Monocyte % 4.3 % 1-9 Eosinophil % 0.7 % 0-6 Basophil % 0.6 % 0-2 Nucleated Red Blood Cells % 0 Type & Screen 05/29/2013 Patient Blood Type A Positive Antibody Screen NEGATIVE CBC Auto Diff 08/20/2012 White Blood Count 9.9 10^3/uL 4.8-10.8 Red Blood Count 4.54 10^6/uL 4.0-5.4 Hemoglobin 12.9 g/dL 12.0-16.0 Hematocrit 40 % 35-47 Mean Corpuscular Volume 88 fL 80-97 Mean Corpuscular Hemoglobin 29 pg 27-31 Mean Corpuscular HGB Conc 32 g/dL 31-36 Red Cell Distribution Width 16 % High 10.5-15 Platelet Count 302 10^3/uL 150-450 Mean Platelet Volume 7 um3 Low 7.4-10.4 Abs Neutrophils 6.0 10^3/uL 1.5-7.7 Abs Lymphocytes 3.1 10^3/uL 1.0-4.8 Abs Monocytes 0.5 10^3/uL 0-0.8 Abs Eosinophils 0.2 10^3/uL 0-0.6 Abs Basophils 0.1 10^3/uL 0-0.2 Abs Nucleated RBC 0 10^3/uL Granulocyte % 60.7 % 38-83 Lymphocyte % 31.7 % 25-47 Monocyte % 4.7 % 1-9 Eosinophil % 1.7 % 0-6 Basophil % 1.2 % 0-2 Nucleated Red Blood Cells % 0 Laboratory test finding 08/20/2012 Vitamin B1 Whole Blood 137 nmol/L 70- 180 34 Vitamin E Level 17.2 mg/L 5.5 - 17.0 35 Comp Metabolic Panel 08/20/2012 Sodium 140 mmol/L 133-145 Potassium 3.7 mmol/L 3.5-5.0 Chloride 105 mmol/L 101-111 Co2 Carbon Dioxide 26.0 mmol/L 22-32 Anion Gap 9.0 mmol/L 2-11 Glucose 106 mg/dL High 70-100 Blood Urea Nitrogen 14 mg/dL 6-24 Creatinine 0.80 mg/dL 0.50-1.40 BUN/Creatinine Ratio 17.5 8-20 Calcium 8.9 mg/dL 8.1-9.9 Total Protein 6.9 g/dL 6.2-8.1 Albumin 3.7 g/dL 3.6-5.4 Globulin 3.2 g/dL 2-4 Albumin/Globulin Ratio 1.2 1-3 Total Bilirubin 0.6 mg/dL 0.4-1.5 Alkaline Phosphatase 46 U/L 30-110 Alt 23 U/L 14-54 Ast 17 U/L 12-42 Egfr Non- 79.0 >60 Egfr 101.7 >60 36 Iron & Iron Binding Capacity 08/20/2012 Iron 70 g/dL 28-170 Unsaturated Iron Binding 351 g/dL Total Iron Binding Capacity 421 g/dL 250-450 % Iron Saturation 17 % 15-55 Laboratory test finding 08/20/2012 Ferritin 15 ng/mL 11-307 37 Vitamin B12 298 pg/mL 180-914 38 Folate 24.2 ng/mL High 2-16 39 TSH (Thyroid Stimulating Horm) 2.36 miu/mL 0.34-5.60 40 Cortisol 19.9 g/dL 41 Vitamin D, 25 Hydroxy 08/20/2012 25-Hydroxy Vitamin D2 <4.0 ng/mL 25-Hydroxy Vitamin D3 30 ng/mL 25-Hydroxy Vitamin D Total 30 ng/mL 42 Clotest 07/28/2012 Clotest (SEE NOTE) 43 Laboratory test finding 06/25/2012 Urine Culture Escherichia coli 44 Ua - Micro ([facility]) 06/25/2012 Appearance SLT. CLOUDY Color YELLOW Glucose NEG Bilirubin NEG Ketones NEG SP Grav 1.025 Blood MODERATE PH 7.0 Protein SSA +1 Urobil 0.2 Nitrite NEG Leukocytes ([facility]ma/CMC/Centrex) MODERATE Hyaline - /Lpf Granular - /Lpf WBC (a,Centrex) 20-30 RBC 7-8 Mucus - /Lpf Epith RARE /Lpf Bacteria +1 /Hpf Amorphous - /Lpf Crystals, Fluid (Fma/CMC/CTX) - Z#Comments - CBC ([facility]) 09/18/2008 WBC 6.7 3.6-9.6 RBC 4.52 3.90-5.70 Hemoglobin (Fma/CMC/CTX) 14.7 g/dL 12.1 - 17.2 Hematocrit (Fma/CMC/CTX) 41.0 % 36.1 - 50.3 Mean Corpuscular Vol 90.7 82.2-97.4 Mean Corpuscular Hemaglobin 32.5 27.6-33.3 Mean Corpuscular Hemo Concen 35.9 33.0-36.0 Platelets 352 10^3/ul 150-400 Lymph% 34.5 20.5-51.1 Mixed% 7.0 Neutrophils % 58.5 RDW 12.6 11.6-13.7 Mean Platelet Volume 9.2 7.4-10.4 Creatinine Clearance 09/18/2008 Creatinine, Serum 1.0 mg/dL 0.5-1.2 45 Creatinine, 24 HR Urine 1.6 g/24hrs 0.9-1.7 45 Creatinine Clearance 110.7 mL/min 61.0-166.0 45, 46 Total Volume, 24 Hour 1400 ml/24hrs 45 Microalbumin, 24 HR 09/18/2008 Microalbumin (Ug/Min) 4.0 ug/minute 0.0- 20.0 45 Urine Microalbumin (MG/24HR) 5.7 mg/24hours 0.0-30.0 45 Total Volume, 24 Hour 1400 ml/24hr. 45 Comprehensive Metabolic Prof 08/30/2008 Albumin 3.9 g/dL 3.8-5.5 47 Alk. Phos. 38 U/L 30-110 47 Alt (SGPT) 7 U/L 7-35 47 Ast (Sgot) 11 U/L 5-34 47 BUN 16 mg/dL 6-26 47 Calcium 8.9 mg/dL 8.6-10.2 47 Chloride 102 mEq/L 94-112 47 Creatinine 0.7 mg/dL 0.6-1.4 47 Carbon Dioxide 27 mEq/L 21-32 47 Glucose 93 mg/dL 70-105 47 Sodium 139 mEq/L 134-149 47 Total Bilirubin 0.3 mg/dL 0.2-1.3 47 Total Protein 6.5 g/dL 6.3-8.1 47 Potassium 4.1 mEq/L 3.6-5.5 47 Globulin 2.7 g/dL 2.0-4.8 47 A/G Ratio 1.5 Calc 0.6-2.2 47 BUN/Creat Ratio 21.2 Calc 8.0-36.0 47 Laboratory test finding 08/30/2008 TSH 1.26 mIU/L 0.50-6.00 47 Lipid Profile 08/30/2008 Cholesterol 190 mg/dL 120-200 47 HDL 56 mg/dL 30-85 47 Triglycerides 104 mg/dL 30-200 47 HDL Risk Factor 3.4 CALC Low 4.2-7.0 47 LDL (Calculated) 113 CALC 0-129 47 VLDL (Calculated) 21 mg/dL 0-50 47 Laboratory test finding 05/15/2008 HCG, Quantitative <2 mIU/mL 48, 49 Laboratory test finding 05/15/2008 , Serum negative Creatinine Clearance 07/09/2006 Creatinine Random Urine 108.3 mg/dL Serum Creatinine/Creat CL 0.8 mg/dL 0.5-1.4 Creat Clearance 136 mL/min High 80-125 Hours Of Collection 24 HR 24- Urine Volume Measurement 1450 ML Total Protein 24HR Urine 07/09/2006 Total Protein Random Urine 9 mg/dL Urine Total Protein/24HR 130 MG/24HR High 50-100 Ua - Micro ([facility]ma) 05/17/2006 Appearance CLEAR Color LIGHT YELLOW Glucose NEGATIVE Bilirubin NEGATIVE Ketones NEGATIVE SP Grav 1.015 Blood TRACE LMP: 2 WKS Ago PH 7.5 Protein, Random Urine NEGATIVE Urobil 0.2 Nitrite NEGATIVE Leukocytes (Fma/CMC/Centrex) NEGATIVE Hyaline - /Lpf Granular - /Lpf WBC, Fluid 4-6 RBC, Fluid 1-2 Mucus SMALL AMOUNT /Lpf Epith OCC /Lpf Bacteria 2+ /Hpf Amorphous - /Lpf Crystals, Urine (Fma/CMC/CTX) - /Lpf Misc - Ua - Micro ([facility]) 05/09/2006 Appearance CLEAR Color YELLOW Glucose NEG Bilirubin NEG Ketones NEG SP Grav <=1.005 Blood TRACE-INTACT LMP 05/01/06 PH 5.5 Protein, Random Urine NEG Urobil 0.2 Nitrite NEG Leukocytes (Fma/CMC/Centrex) NEG Hyaline - /Lpf Granular - /Lpf WBC, Fluid 0-2 RBC, Fluid 0-3 Mucus - /Lpf Epith RARE /Lpf Bacteria 3+ /Hpf Amorphous - /Lpf Crystals, Urine (Fma/CMC/CTX) - /Lpf Misc - Ua - Micro ([facility]) 04/10/2006 Appearance CLEAR Color LT YELLOW Glucose NEG Bilirubin NEG Ketones NEG SP Grav 1.010 Blood MODERATE PH 7.5 Protein, Random Urine NEG Urobil 0.2 Nitrite NEG Leukocytes (Fma/CMC/Centrex) TRACE Hyaline - /Lpf Granular - /Lpf WBC, Fluid 4-8 RBC, Fluid 5-8 Mucus SM AMT /Lpf Epith FEW /Lpf Bacteria TRACE /Hpf Amorphous - /Lpf Crystals, Urine (Fma/CMC/CTX) - /Lpf Misc - Lipid Profile ([facility]) 04/10/2006 Cholesterol (Fma/CMC/Centrex) 207 mg/dL High 120-200 Female Triglyceride 250 mg/dL High 30-200 HDL-Chol 43 mg/dL 30-85 LDL, Calculated ([facility]) 114 CALC 0-129 VLDL 50 0-50 HDL Risk Factor ([facility]) 4.8 CALC 4.2-7.0 Comp Metabolic ([facility]) 04/10/2006 Glucose, Serum (a/[facility]/CTX) 92 mg/dL 70- 105 Female BUN (a/[facility]/Centrex) 12 mg/dL 6-26 Creatinine, Serum 0.9 mg/dL 0.6-1.4 BUN/Creatinin Ratio 13.4 8.0-36 Sodium 135 134-149 Potassium 4.0 3.6-5.5 Chloride 104 mEq/L 94-112 Co2 25 21-32 Calcium (a/CMC/Centrex) 9.0 mg/dL 8.6-10.2 Total Protein 7.1 g/dL 6.3-8.1 Albumin ([facility]) 4.1 3.8-5.5 Globulin 3.1 2.0-4.8 A/G Ratio (A/G Ratio) 1.3 0.6-2.2 Alkaline Phosphatase (F/C/CTX) 40 U/L 30-110 Alt (SGPT) Female (a) 18 7-35 Ast Sgot 18 U/L 5-34 Bilirubin, Total 0.6 mg/dL 0.2-1.3 Laboratory test finding 04/10/2006 TSH ([facility]) 1.56 uIU/ml 0.5- 6.0 CBC ([facility]) ([facility]) New 04/10/2006 WBC 7.2 3.6-9.6 RBC 4.46 3.90-5.70 Hemoglobin (a/CMC/CTX) 14.2 g/dL 12.1 - 17.2 Hematocrit (Fma/CMC/CTX) 41 % 36.1 - 50.3 Mean Corpuscular Vol 92.2 82.2-97.4 Mean Corpuscular Hemaglobin 31.9 27.6-33.3 Mean Corpuscular Hemo Concen 34.6 33.0-36.0 RDW 12.5 11.6-13.7 Platelets 339 10^3/ul 150-400 Mean Platelet Volume 6.9 Low 7.4-10.4 Auto-Diff -- Gran# 4.5 1.5-7.2 Lymph# 2.4 0.7-4.9 Monocytes 0.3 10^3/uL 0.1 - 0.9 Gran% 63.1 42.2-75.2 Lymph% 32.9 20.5-51.1 Monocytes 4.0 % 1.7-9.3 CBC Electronic ([facility]) 09/01/2003 WBC 6.4 3.6-9.6 Lymphocytes 32.0 % 20.5 - 51.1 Monocytes 3.2 % 1.7-9.3 Granulocytes 64.8 % 42.2 - 75.2 Lymphocytes 2.0 10^3/uL 0.7 - 4.9 Monocytes 0.2 10^3/uL 0.1 - 0.9 Granulocytes 4.1 10^3/uL 1.5 - 7.2 RBC 4.79 3.90-5.70 Hemoglobin (a/CMC/CTX) 14.6 g/dL 12.1 - 17.2 Hematocrit (a/CMC/CTX) 44.0 % 36.1 - 50.3 Mean Corpuscular Vol 91.9 82.2-97.4 Mean Corpuscular Hemaglobin 30.6 27.6-33.3 Mean Corpuscular Hemo Concen 33.3 33.0-35.5 RDW 12.5 11.6-13.7 Platelets 313 10^3/ul 150-400 Mean Platelet Volume 7.1 Low 7.4-10.4 Comp Metabolic ([facility]) 09/01/2003 Glucose, Serum (a/CMC/CTX) 98 mg/dL 70- 118 BUN (a/CMC/Centrex) 17 mg/dL 6-26 Creatinine (a/CMC/CTX) 0.8 mg/dL 0.6-1.4 BUN/Creatinin Ratio 21.4 8.0-36 Sodium 139 134-149 Potassium 4.8 3.6-5.5 Chloride 102 mEq/L 94-112 Co2 25 21-32 Calcium (a/CMC/Centrex) 9.3 mg/dL 8.6-10.0 Total Protein 7.1 g/dL 6.3-8.1 Albumin (Fma/CMC/Centrex) 4.3 3.8-5.5 Globulin 2.9 2.0-4.8 A/G Ratio (Fma/CMC) 1.5 0.6-2.2 Alkaline Phosphatase (F/C/CTX) 35 U/L 30-110 Alt (SGPT) (Fma/CMC/Centrex) 10 10-40 Ast (Sgot) (Fma/CMC/Centrex) 10 U/mL 5-34 Bilirubin, Total 0.5 mg/dL 0.2-1.3 Lipid Profile (a) 09/01/2003 Cholesterol (Fma/CMC/Centrex) 177 mg/dL 120-200 Triglyceride 69 mg/dL 30-200 HDL-Chol 54 30-85 LDL, Calculated (a/[facility]) 109 CALC 0-129 VLDL 14 0-50 HDL Risk Factor ([facility]) 3.3 CALC Low 4.2-7.0 Laboratory test 09/01/2003 CRP (High Sensitivity) 0.85 @CRPM mg/L 0.0 - 3.0 50 finding Homocysteine 7.38 umol/L 4.72 - 14.05 Laboratory test finding 05/14/2003 Quickstrep POSITIVE Negative Free T4/TSH (a/[facility]) 03/01/2003 TSH 1.51 uIU/ml 0.5-6.0 Free T4 1.27 ng/dL 0.75-1.54 Laboratory test finding 07/04/2002 Throat Culture POSITIVE Laboratory test finding 04/28/2002 Comments LMP: 2 WKS AGO Ua - Non Micro (a New) 04/28/2002 Appearance CLEAR LT YELLOW Glucose NEGATIVE Bilirubin NEGATIVE Ketones NEGATIVE SP Grav <=1.005 Blood NEGATIVE PH 6.5 Protein NEGATIVE Urobil 0.2 Nitrite NEGATIVE Leukocytes NEGATIVE 1 SEE RESULT BELOW Name: ANGIE SAXENA : [address]: Marlene WHITAKER C Acct: [id number] Unit: [id number] AGE: 47 Location: [facility] Re12/18/17 SEX: F Status: REG REF SPEC: [id number] SONIA: 12/18/[address]: Marlene WHITAKER C REQ: [id number] RECD: 12/18/17 STATUS: ENIO SUAZO DR: Alfredito Ahmadi MD _ ORDERED: TP IMAGE ANALYS, HPV/Thin Prep COMMENTS: [id number] Negative for Intraepithelial lesion or Malignancy A. Ectocervical/Endocervical Specimen Adequacy: Satisfactory of evaluation Transformation zone component identified Patient Information: HPV: High risk HPV RNA testing regardless of pap results. Actual Specimen Date: 12/18/17 Last Menstrual Date: 12/09/17 Date of Last Specimen: 05/07/16 Date Time Test Result Flag (u) Normal Range 12/18/17 0940 @ HPV RNA Negative Negative @ @ The high-risk HPV types detected by the assay include: 16, @ 18, 31, 33, 35, 39, 45, 51, 52, 56, 58, 59, 66, and 68. Signed by and Reported on: CONCEPCIÓN Hernandez(ASC) [phone] This Pap test was evaluated with the assistance of the ThinPrep Test Imaging System. Due to cytologic findings at the manager regional microscope, comprehensive manual rescreening by a Store Lead may be required. The Pap Smear is a screening test designed to aid in the detection of premalignant and malignant conditions of the uterine cervix. It is not a diagnostic procedure and should not be used as the sole means of detecting cervical cancer. Both false- positive and false- negative reports do occur. Depending on your risk status, a Pap smear should be obtained and evaluated every 1-3 years. END OF REPORT DEPARTMENT OF PATHOLOGY, [address] [place] [address] Beto Oneal M.D. Director [facility] # [id number] 2 SEE RESULT BELOW Name: ANGIE SAXENA : [address]: Be Conner MD Acct: [id number] Unit: [id number] AGE: 47 Location: THYROID Re06/13/17 SEX: F Status: REG REF SPEC: [id number] SONIA: 06/13/17 [facility] [address]: Be Conner MD REQ: [id number] RECD: 06/13/17 STATUS: ENIO SUAZO DR: Alfredito Lamb MD _ ORDERED: FNA-IMG GUID BX, CYTO ADEQ-1ST P FINAL DIAGNOSIS Thyroid, left, US guided fine needle aspiration: --Benign thyroid nodule- involutional type (Colton Class II). The specimen demonstrates abundant watery proteinaceous fluid, a moderate amount of benign appearing follicular epithelium arranged in uniform sheets, medium sized follicles and only occasional small groups. Abundant pigmented and non-pigmented macrophages are seen in the background. No features of papillary carcinoma are seen. In this clinical setting the risk of malignancy is less than 3%. Clinical management of this thyroid nodule should be based on clinical and radiographic features as well as the above findings. THYROID LEFT - US GUIDED FINE NEEDLE ASPIRATION CLINICAL HISTORY Left thyroid nodule 4.5cm IMMEDIATE INTERPRETATION Pass 1 2-adequate CONTINUED ON NEXT PAGE * ML=Testing performed at Main Lab DEPARTMENT OF PATHOLOGY, [address] [place] [address] Beto Oneal M.D. Director [facility] # [id number] RUN DATE: 06/13/17 [facility] LAB LIVE PAGE 2 Patient: TRAVISMARTINANGIE [id number] (Continued) GROSS DESCRIPTION (Continued) GROSS DESCRIPTION 3- alcohol fixed slide(s) 2 - passes Signed (signature on file) Beto Oneal MD 0956 END OF REPORT * ML=Testing performed at Main Lab DEPARTMENT OF PATHOLOGY, [address] [place] [address] Beto Oneal M.D. Director [facility] # [id number] 3 Because ethnic data is not always readily available, this report includes an eGFR for both -Americans and non- Americans. The National Kidney Disease Education Program (NKDEP) does not endorse the use of the MDRD equation for patients that are not between the ages of 18 and 70, are , have extremes of body size, muscle mass, or nutritional status, or are non- or non-. According to the National Kidney Foundation, irrespective of diagnosis, the stage of the disease is based on the level of kidney function: Stage Description GFR(mL/min/1.73 m(2)) 1 Kidney damage with normal or decreased GFR 90 2 Kidney damage with mild decrease in GFR 60-89 3 Moderate decrease in GFR 30-59 4 Severe decrease in GFR 15-29 5 Kidney failure <15 (or dialysis) 4 FASTING 5 Test Performed by: [place] [address] [employer] Manager: Maritza Lepe, Ph.D. 6 Test Performed by: [place] [address] [employer]able Farm Manager: Maritza Lepe, Ph.D. 7 REFERENCE VALUE 25-HYDROXY D TOTAL (D2+D3) Optimum levels in the healthy population are 20-50, patients with bone disease may benefit from higher levels within this range. Test Performed by: [place] [address] Vegetable Farm Manager: Salvador Li M.D. 8 Potassium reference range changed effective 04/25/14 9 Because ethnic data is not always readily available, this report includes an eGFR for both -Americans and non- Americans. The National Kidney Disease Education Program (NKDEP) does not endorse the use of the MDRD equation for patients that are not between the ages of 18 and 70, are , have extremes of body size, muscle mass, or nutritional status, or are non- or non-. According to the National Kidney Foundation, irrespective of diagnosis, the stage of the disease is based on the level of kidney function: Stage Description GFR(mL/min/1.73 m(2)) 1 Kidney damage with normal or decreased GFR 90 2 Kidney damage with mild decrease in GFR 60-89 3 Moderate decrease in GFR 30-59 4 Severe decrease in GFR 15-29 5 Kidney failure <15 (or dialysis) 10 FASTING 11 Normal Range 180 to 914 Indeterminate Range 145 to 180 Deficient Range <145 12 FASTING 13 PT IS FASTING 14 Test Performed by: [place] [address] Vegetable Farm Manager: Salvador Li M.D. 15 Test Performed by: [place] [address] Vegetable Farm Manager: Maritza Lepe, Ph.D. 16 Test Performed by: [place] [address] [employer]able Farm Manager: Maritza Lepe, Ph.D. 17 REFERENCE VALUE 25-HYDROXY D TOTAL (D2+D3) Optimum levels in the healthy population are 20-50, patients with bone disease may benefit from higher levels within this range. Test Performed by: [place] [address] Vegetable Farm Manager: Salvador Li M.D. 18 Because ethnic data is not always readily available, this report includes an eGFR for both -Americans and non- Americans. The National Kidney Disease Education Program (NKDEP) does not endorse the use of the MDRD equation for patients that are not between the ages of 18 and 70, are , have extremes of body size, muscle mass, or nutritional status, or are non- or non-. According to the National Kidney Foundation, irrespective of diagnosis, the stage of the disease is based on the level of kidney function: Stage Description GFR(mL/min/1.73 m(2)) 1 Kidney damage with normal or decreased GFR 90 2 Kidney damage with mild decrease in GFR 60-89 3 Moderate decrease in GFR 30-59 4 Severe decrease in GFR 15-29 5 Kidney failure <15 (or dialysis) 19 PT IS FASTING 20 Normal Range 180 to 914 Indeterminate Range 145 to 180 Deficient Range <145 21 PT IS FASTING 22 Desirable <150 Borderline high 150-199 High 200-499 Very High >500 23 Desirable <200 Borderline high 200-239 High >239 24 Low <40 Desirable: 40-60 High: >60 25 Desirable <100 Near Optimal 100-129 Borderline high 130-159 High 160-189 Very High >189 26 Test Performed by: [place] [address] [employer]: Maritza Lepe, Ph.D. 27 Test Performed by: [address] [address] [employer] Manager: Maritza Lepe, Ph.D. 28 Because ethnic data is not always readily available, this report includes an eGFR for both -Americans and non- Americans. The National Kid[employer] Disease Education Program (NKDEP) does not endorse the use of the MDRD equation for patients that are not between the ages of 18 and 70, are , have extremes of body size, muscle mass, or nutritional status, or are non- or non-. According to the [employer], irrespective of diagnosis, the stage of the disease is based on the level of kidney function: Stage Description GFR(mL/min/1.73 m(2)) 1 Kidney damage with normal or decreased GFR 90 2 Kidney damage with mild decrease in GFR 60-89 3 Moderate decrease in GFR 30-59 4 Severe decrease in GFR 15-29 5 Kidney failure <15 (or dialysis) 29 -- REFERENCE VALUE -- 25-HYDROXY D TOTAL (D2+D3) Optimum levels in the healthy population are 20-50, patients with bone disease may benefit from higher levels within this range. Test Performed by: [place] [address] [employer] Manager: Tae Downing III, M.D. 30 PT IS FASTING 31 Normal Range 180 to 914 Indeterminate Range 145 to 180 Deficient Range <145 32 PT IS FASTING 33 Because ethnic data is not always readily available, this report includes an eGFR for both -Americans and non- Americans. The National Kid[employer] Education Program (NKDEP) does not endorse the use of the MDRD equation for patients that are not between the ages of 18 and 70, are , have extremes of body size, muscle mass, or nutritional status, or are non- or non-. According to the National Kidney Foundation, irrespective of diagnosis, the stage of the disease is based on the level of kidney function: Stage Description GFR(mL/min/1.73 m(2)) 1 Kidney damage with normal or decreased GFR 90 2 Kidney damage with mild decrease in GFR 60-89 3 Moderate decrease in GFR 30-59 4 Severe decrease in GFR 15-29 5 Kidney failure <15 (or dialysis) 34 Test Performed by: [address] [address] Vegetable Farm Manager: Maritza Lepe, Ph.D. 35 Test Performed by: [address] [address] Vegetable Farm Manager: Maritza Lepe, Ph.D. 36 Because ethnic data is not always readily available, this report includes an eGFR for both -Americans and non- Americans. The National Kidney Disease Education Program (NKDEP) does not endorse the use of the MDRD equation for patients that are not between the ages of 18 and 70, are , have extremes of body size, muscle mass, or nutritional status, or are non- or non-. According to the National Kidney Foundation, irrespective of diagnosis, the stage of the disease is based on the level of kidney function: Stage Description GFR(mL/min/1.73 m(2)) 1 Kidney damage with normal or decreased GFR 90 2 Kidney damage with mild decrease in GFR 60-89 3 Moderate decrease in GFR 30-59 4 Severe decrease in GFR 15-29 5 Kidney failure <15 (or dialysis) 37 FASTING 38 FASTING 39 FASTING 40 FASTING 41 AM Cortisol 8.7-22.4 PM Cortisol Less than 10 42 -- REFERENCE VALUE -- 25-HYDROXY D TOTAL (D2+D3) Optimum levels in the normal population are 25-80 Test Performed by: [place] [address] Vegetable Farm Manager: Tae Downing III, M.D. 43 RUN DATE: 07/29/12 [facility] LAB LIVE PAGE 1 RUN TIME: [address] [place] [id number] Specimen Inquiry Name: ANGIE SAXENA : [address]: Jeff Rader MD Acct: [id number] Unit: [id number] AGE: 42 Location: [facility] Re07/28/12 SEX: F Status: REG REF SPEC: [id number] SONIA: 07/28/12 [facility] DR: Jeff Rader MD REQ: [id number] RECD: 07/28/12 STATUS: KAMLESH SUAZO DR: Alfredito Ahmadi MD _ SOURCE: GAS ANTRUM SPDESC: ORDERED: Clotest Procedure Result Verified Site Clotest Final 07/29/12743 ML Clotest Negative END OF REPORT * ML=Testing performed at Main Lab DEPARTMENT OF PATHOLOGY, [address] [place] [address] Beto Oneal M.D. Director [facility] Permit #[id number] 44 Escherichia coli >100,000 col/ml URINE CULTURE organism 1 Escherichia coli >100,000 col/ml Meropenem <=0.25 Susceptible Ertapenem <=0.5 Susceptible Amikacin <=2 Susceptible Amoxicillin/CA 4 Susceptible Ampicillin >=32 Resistant Aztreonam <=1 Susceptible Cefazolin <=4 Susceptible Ciprofloxacin <=0.25 Susceptible Gentamicin <=1 Susceptible Imipenem <=1 Susceptible Levofloxacin <=0.12 Susceptible Nitrofurantoin <=16 Susceptible Tetracycline <=1 Susceptible Trimethoprim/Sulfa <=20 Susceptible 45 1400 ML TOTAL VOLUME SST TUBE 46 Creatinine Clearance results are based on a standard body surface area of 1.73 sq meters. 47 FASTING 48 SERUM 49 . Less than 5: Negative for 6 - 25: Indeterminate for , and Suggest recollection in 72 hrs Greater than 25: Positive for . NORMAL : Gestational Age HCG range (mIU/mL) 2-3 Weeks 100 - 1,000 3-4 Weeks 500 - 6,000 1-2 Months 5,000 - 200,000 2-3 Months 10,000 - 100,000 2nd Trimester 3,000 - 50,000 3rd Trimester 1,000 - 50,000 . Please Note: This test methodology is limited to the early detection of . False results can occur due to, but not limited to, the presence of heterophilic antibodies, non-specific protein binding, altered forms of HCG, HCG-like substances, trophoblastic or non-trophoblastic neoplasms. . 50 . hs-CRP Result (mg/L) Risk Level <1.0 Low 1.0-3.0 Average >3.0 High Patients with persistently unexplained, marked elevation of hs-CRP (greater than 10 mg/L) after repeated testing should be evaluated for non-cardiovascular etiologies. . Procedures Date CPT Code Description Status Comment 06/25/2017 Mammogram Completed states utd 05/16/2016 Mammogram Completed 02/10/2015 Mammogram Completed 09/30/2013 Mammogram Completed 09/09/2013 Mammogram Completed 05/29/2006 Colonoscopy Completed 04/10/2006 51713 Electrocardiogram Complete Completed 09/01/2003 85694 Electrocardiogram Complete Completed Encounters Type Date Location Provider CPT E/M Dx Office Visit 11/11/2017 4:30p [facility] Luis Manuel Cyr, 49992 J01.90 Office Visit 06/25/2017 4:15p [facility] Zee Lora, 97302 F41.0 Afnp-C F10.180 Office Visit 05/29/2017 3:50p [facility] Alfredito Ahmadi M.D. 82064 E04.9 Office Visit 05/09/2017 12:45p [facility] Office Alfredito Ahmadi M.D. 88038 E04.9 Office Visit 04/15/2017 4:30p [facility] Alfredito Ahmadi M.D. 52548 E04.9 Office Visit 03/02/2017 10:20a Main Office Estrada Ibrahim M.D. 20924 N39.0 Office Visit 02/18/2017 10:50a [facility] Office Alfredito Ahmadi M.D. 59225 F41.9 Office Visit 02/04/2017 3:30p [facility] Office Alfredito Ahmadi M.D. 20890 M54.2 Office Visit 10/29/2016 4:10p [facility] Office Alfredito Ahmadi M.D. 99216 I10 J30.9 Z23 Office Visit 07/16/2016 4:15p Main Office FAYE Vásquez 09083 J01.90 Office Visit 06/11/2016 3:45p Main Office FAYE Vásquez 09267 J01.90 Office Visit 04/28/2016 9:15a [facility] Office Alfredito Ahmadi M.D. 72068 I10 J30.9 D25.9 R39.15 Z12.39 Office Visit 07/18/2015 1:15p Main Office FAYE Vásquez 50977 J01.90 Office Visit 05/04/2015 1:00p [facility] Office Alfredito Ahmadi M.D. 75713 F43.21 Office Visit 07/14/2014 4:00p [facility] Office Alfredito Ahmadi M.D. 95509 V70.0 401.9 477.9 788.63 Office Visit 05/04/2014 9:00a [facility] Stacy So-Mireya 60210 465.9 Office Visit 12/01/2013 8:20a [facility] Alfredito Ahmadi M.D. 62587 401.9 Office Visit 10/21/2013 8:40a [facility] Alfredito Ahmadi M.D. 23522 401.9 Office Visit 06/15/2013 8:15a [facility] Pebbles Montaño [facility] 11401 401.9 278.00 Office Visit 11/06/2012 1:45p [facility] HANS VásquezP 81896 461.9 477.9 Office Visit 10/14/2012 4:00p [facility] Luis Manuel Valenzuela M.D. 02631 461.9 Office Visit 06/25/2012 1:30p [facility] Stacy Diaz-C 96822 599.0 Office Visit 03/27/2012 3:50p [facility] Office Alfredito Ahmadi M.D. 80197 401.9 278.00 Office Visit 03/05/2012 7:15p Main Office Stacy So-C 16079 401.9 Office Visit 06/06/2009 1:15p Main Office FAYE Vásquez 68933 461.9 Office Visit 11/03/2008 4:20p [facility] Alfredito Ahmadi M.D. 35044 311 782.1 Office Visit 08/30/2008 9:10a [facility] Alfredito Ahmadi M.D. 46194 401.9 311 V77.91 477.9 Office Visit 05/25/2008 6:15p Main Office Stacy Diaz-C 17874 311 Office Visit 04/13/2008 1:15p Main Office Stacy Diaz-C 52131 311 Office Visit 09/03/2007 7:45p Main Office Stacy So-C 89643 785.6 401.9 Office Visit 06/10/2007 2:20p Main Office Alfredito Ahmadi M.D. 71593 V65.8 V05.3 Office Visit 01/14/2007 2:15p [facility] Zee LoraStacy-Mireya 77908 786.2 477.9 300.01 Office Visit 09/18/2006 2:30p [facility] Page FAYE Hayes 76863 008.49 Office Visit 08/14/2006 2:40p [facility] Alfredito Ahmadi M.D. 98203 300.01 401.9 272.2 599.7 Office Visit 06/13/2006 3:00p Main Office Alfredito Ahmadi M.D. 29026 401.9 599.7 272.2 782.3 240.9 Office Visit 06/07/2006 2:30p [facility] Zeina Diaz 05007 381.01 V04.81 Office Visit 05/09/2006 4:00p Main Office Alfredito Ahmadi M.D. 17826 401.9 578.1 599.7 Office Visit 04/10/2006 9:20a [facility] Alfredito Ahmadi M.D. 83735 V70.0 V17.3 578.1 278.00 401.9 V06.5 599.7 Office Visit 06/26/2005 3:00p [facility] Zee LoraStacy-Mireya 84867 465.9 995.3 Office Visit 08/22/2004 3:00p [facility] Vaishnavijaquan BlankStacy-C 62159 461.9 Office Visit 03/31/2004 1:45p [facility] Stacy Diaz-Mireya 28989 477.9 Office Visit 01/25/2004 3:10p Main Office Pebbles Melvin 93540 847.0 M.DNahomy Office Visit 09/01/2003 9:00a [facility] Alfredito Ahmadi M.D. 75726 786.50 V17.3 V82.89 Office Visit 05/14/2003 1:45p [facility] Stacy Diaz-C 23207 034.0 Office Visit 04/27/2003 1:20p Main Office Alfredito Ahmadi M.D. 84001 461.9 V04.8 Office Visit 03/01/2003 6:00p Main Office HANS SolisP-C 21130 311 Office Visit 07/04/2002 9:50a Main Office Andrea Lopez M.D. 64607 462 Office Visit 04/28/2002 8:15p Main Office Zeina Diaz 21633 624.0 Office Visit 08/19/2001 4:30p Main Office Zeina Diaz 14840 Office Visit 04/07/2001 6:20p Main Office Andrea Lopez M.D. 99766 Plan of Care 05/06/2018 - Pebbles Montaño, [id number] CoughNew Medication:Advair Diskus 250-50 mcg/DoseCheratussin ac 100-10 mg/5MLComments:likely bronchitis, viral and self- limitingtreat the cough assertively, I expect you to feel better soonwarm steam showersnasal saline irrigation, warm facial compresses, Tylenol / ibuprofen Call STEVEN if condition changes/worsens in any wayJ30.9 Allergic rhinitis, unspecifiedAllComments:~B_~U_Medication Management~b_~u_ Patient Understands medications he 's taking? Yes No Are there Barriers to Adherence? Yes No Has the patient been asked about herbal supplements and therapies, and OTC meds? Yes No As always, we strongly encourage a healthy diet and makingphysical activity a part of your every day life. If you have questions about how or where to start, please contact the office.
[2018-05-12 13:49] LABS: Urine Appearance Cloudy; Urine Blood Negative (Negative); Urine Color Yellow; Urine Ketones 1+ (Negative); Urine Protein Negative (Negative); Urine Specific Gravity 1.023 (1.010-1.030); Urine Urobilinogen Negative (Negative)
[2018-05-12 13:56] LABS: ABS Basophils 0.1 10^3/ul (0-0.2); ABS Eosinophils 0 10^3/ul (0-0.6); ABS Lymphocytes 1.4 10^3/ul (1.0-4.8); ABS Monocytes 0.3 10^3/ul (0-0.8); ABS Neutrophils 5.5 10^3/ul (1.5-7.7); ABS Nucleated RBC 0 10^3/ul; Eosinophil % 0.2 % (0-6); Hematocrit 41 % (35-47); Hemoglobin 13.7 g/dl (12.0-16.0); Lymphocyte % 19.7 % (25-47); Mean Corpuscular HGB Conc 34 g/dl (31-36); Mean Corpuscular Hemoglobin 31 pg (27-31); Mean Corpuscular Volume 93 fL (80-97); Mean Platelet Volume 6.9 fL (7.4-10.4); Nucleated Red Blood Cells % 0.1; Platelet Count 282 10^3/ul (150-450); Red Blood Count 4.37 10^6/ul (4.00-5.40); Red Cell Distribution Width 13 % (10.5-15); White Blood Count 7.4 10^3/ul (3.5-10.8)
[2018-05-12 14:04] LABS: EGFR Non-African American 107.2 (>60)
[2018-05-12] MEDS ORDERED: Acetaminophen TAB* 325 MG PO PRN (20:25)
[2018-05-12] MEDS ORDERED: Al Hydrox/Mg Hydrox/Simet LIQ* 30 ML UDC PO PRN (20:25)
[2018-05-12] MEDS ORDERED: Fluticasone NASAL SPRAY 50MCG* 16 gm SPRAY BTL BOTH NARES PRN (20:29)
[2018-05-12] MEDS ORDERED: LORazepam PO 0-6 for WAM protocol PO SCH (21:00)
[2018-05-13] MEDS ORDERED: Sertraline* 25 MG TAB PO SCH (09:00)
[2018-05-13] MEDS: Folic Acid TAB* 1 MG DAILY PO SCH (10:06)
[2018-05-13] MEDS: Cetirizine* 10 MG TAB PO SCH (10:06)
[2018-05-13] MEDS: Metoprolol Succinate XL TAB* 50 MG PO SCH (10:06)
[2018-05-13] MEDS: Thiamine TAB* 100 MG TAB DAILY (@ T+1) PO SCH (10:08)
[2018-05-13] MEDS: Vitamin THERAPEUTIC TAB PO SCH (10:08)
[2018-05-13] MEDS ORDERED: cloNIDine TAB* 0.1 MG PO ONE (12:32)
[2018-05-13] MEDS ORDERED: Mometasone/Formoter 200/5 MDI INH SCH (13:00)
[2018-05-13] MEDS: Montelukast Sodium TAB* 10 MG PO SCH (16:20)
[2018-05-13] MEDS ORDERED: Sertraline* 25 MG TAB PO ONE (21:00)
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
[2018-05-13] MEDS: Gabapentin CAP(*) 300 MG PO SCH (21:29)
[2018-05-13] MEDS: FLUTICASONE SALMETEROL INH SCH (21:29)
[2018-05-14] MEDS: Sertraline* 50 MG TAB PO SCH (07:50)
[2018-05-14] MEDS: Thiamine TAB* 100 MG TAB DAILY (@ T+1) PO SCH (07:51)
[2018-05-14] MEDS: Cetirizine* 10 MG TAB PO SCH (07:51)
[2018-05-14] MEDS: FLUTICASONE SALMETEROL INH SCH ×2 (07:52→21:08)
[2018-05-14] MEDS: MULTIVITAMIN PO SCH (07:53)
[2018-05-14] MEDS: Metoprolol Succinate XL TAB* 50 MG PO SCH (07:53)
[2018-05-14] MEDS: [UNRECOGNIZED DRUG - OTHER] PO SCH (07:53)
[2018-05-14] MEDS: VITAMIN B12 3000 MCG PO SCH (07:53)
[2018-05-14] MEDS: Folic Acid TAB* 1 MG DAILY PO SCH (07:53)
[2018-05-14] MEDS: Vitamin THERAPEUTIC TAB PO SCH (07:54)
[2018-05-14] MEDS ORDERED: Metoprolol Succinate XL TAB* 50 MG PO ONE (13:37)
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
[2018-05-14] MEDS: Montelukast Sodium TAB* 10 MG PO SCH (16:18)
[2018-05-14] MEDS: Gabapentin CAP(*) 300 MG PO SCH (20:21)
[2018-05-15] MEDS: Sertraline* 50 MG TAB PO SCH (09:18)
[2018-05-15] MEDS: VITAMIN B12 3000 MCG PO SCH (09:18)
[2018-05-15] MEDS: Cetirizine* 10 MG TAB PO SCH (09:18)
[2018-05-15] MEDS: [UNRECOGNIZED DRUG - OTHER] PO SCH (09:18)
[2018-05-15] MEDS: FLUTICASONE SALMETEROL INH SCH ×2 (09:18→20:37)
[2018-05-15] MEDS: MULTIVITAMIN PO SCH (09:18)
[2018-05-15] MEDS: Metoprolol Succinate XL TAB* 100 MG PO SCH (09:18)
[2018-05-15] MEDS: Folic Acid TAB* 1 MG DAILY PO SCH (09:20)
[2018-05-15] MEDS: Vitamin THERAPEUTIC TAB PO SCH (09:21)
[2018-05-15] MEDS: Thiamine TAB* 100 MG TAB DAILY (@ T+1) PO SCH (09:21)
--- NOTE | 2018-05-15 14:06 | PN ---
Subjective - Subjective Date of Service: 05/15/18 Service Type: 15473 Hosp care 15 min low complexity Subjective: Pato is seen in Holiday coverage for NPP, Theresa Stoner. The patient feels well, denies SI and is hopeful for discharge tomorrow. She notes that her blood pressure remained high this morning at 155/80, despite recent increase in her metoprolol. Objective - Appearance Appearance: Well Developed/Nourished Dysmorphic Features: No Hygiene: Normal Grooming: Well Kept - Behavior Psychomotor Activities: Normal Exhibits Abnormal Movement: No - Attitude and Relatedness Attitude and Relatedness: Cooperative Eye Contact: Good - Speech Quality: Unpressured Latencies: Normal Quantity: Appropriate - Mood Patient's Decription of Mood: "Good" - Affect Observed Affect: Good Affect Consistent with: Euthymia - Thought Process Patient's Thought Process: Coherent Thought Content: No Passive Wish, No Suicidal Planning, No Homicidal Ideation, No Paranoid Ideation - Sensorium Experiencing Hallucinations: No, Sensorium is Clear Type of Hallucinations: Visual: No, Auditory: No, Command: No - Level of Consciousness Level of Consciousness: Alert Orientation: Yes Intact, Yes Orientated to Time, Yes Orientated to Place, Yes Orientated to Person - Impulse Control Impulse Control: Intact - Insight and Judgement Insight and Judgement: Good - Group Participation Particating in Group Activities: Yes - Medication Management Medication Management Adherence: Yes Assessment - Assessment Merits Inpatient Hospitalization: Consolidate Improvements, Pending Safe DC Plan Inpatient DSM-V Dx: F33.1 - major depressive d/o Clinical Impression: 48yo white female, , domiciled, employed with a history of unspecified depressive d/o. She presented to ED with c/o increased depression, SI with plan and near attempt. Patient reports increase in alcohol use over the past year, which has become problematic. She merits hospitalization for immediate safety and stabilization. Plan - Plan Treatment Plan: Name: PATO SAXENA Birthdate: 1970 [id number] continue acute intensive psychiatric treatment. may decrease to q30min observation and allow staff pass. increase metoprolol succ and continue to monitor VS per [facility] protocol discharge planning to include family and outpatient referrals Continued Medication Management: Different Medication Medications: Current Medications Acetaminophen (Tylenol Tab*) 650 mg PO Q4H PRN PRN Reason: PAIN or TEMP > 101 F Al Hydrox/Mg Hydrox/Simethicone (Maalox Plus*) 30 ml PO Q4H PRN PRN Reason: INDIGESTION Cetirizine HCl (Zyrtec*) 10 mg PO DAILY [facility] Last Admin: 05/15/18 09:18 Dose: 10 mg Folic Acid (Folvite Tab*) 1 mg PO DAILY [facility] Last Admin: 05/15/18 09:20 Dose: Not Given Gabapentin (Neurontin Cap(*)) 300 mg PO BEDTIME [facility] Last Admin: 05/14/18 20:21 Dose: 300 mg Lorazepam (Ativan Tab(*)) 0 - 6 mg PO .PER WAM PARAMETERS [facility]; Protocol Last Admin: 05/12/18 23:35 Dose: 2 mg Metoprolol Succinate (Toprol Xl Tab*) 100 mg PO 0900 [facility] Last Admin: 05/15/18 09:18 Dose: 100 mg Montelukast Sodium (Singulair Tab*) 10 mg PO DAILY@1600 [facility] Last Admin: 05/14/18 16:18 Dose: 10 mg Multivitamins (Theragran Tab*) 1 tab PO DAILY [facility] Last Admin: 05/15/18 09:21 Dose: Not Given Pto:Vitamin B-12 (3000 Mcg Lozenges) 1 dose PO DAILY [facility] Last Admin: 05/15/18 09:18 Dose: 1 dose Flinstones Complete (Mvi) 1 admin PO DAILY [facility] Last Admin: 05/15/18 09:18 Dose: 1 admin Fluticasone/Salmeterol (Advair Diskus 250-50*) 1 puff INH BID [facility] Last Admin: 05/15/18 09:18 Dose: 1 puff Sertraline HCl (Zoloft*) 150 mg PO DAILY [facility] Last Admin: 05/15/18 09:18 Dose: 150 mg Thiamine HCl (Vitamin B-1 Tab*) 100 mg PO DAILY [facility] Last Admin: 05/15/18 09:21 Dose: Not Given - Discharge Plan Discharge Plan: Inpatient Hospitalization
[2018-05-15] MEDS: Montelukast Sodium TAB* 10 MG PO SCH (17:03)
[2018-05-15] MEDS: Gabapentin CAP(*) 300 MG PO SCH (20:38)
[2018-05-16 08:35] VITALS: BP 143/88
[2018-05-16] MEDS: Cetirizine* 10 MG TAB PO SCH (08:35)
[2018-05-16] MEDS: Metoprolol Succinate XL TAB* 100 MG PO SCH (08:36)
[2018-05-16] MEDS: Sertraline* 50 MG TAB PO SCH (08:36)
[2018-05-16] MEDS: Vitamin THERAPEUTIC TAB PO SCH (08:36)
[2018-05-16] MEDS: Thiamine TAB* 100 MG TAB DAILY (@ T+1) PO SCH (08:36)
[2018-05-16] MEDS: Folic Acid TAB* 1 MG DAILY PO SCH (08:37)
[2018-05-16] MEDS: FLUTICASONE SALMETEROL INH SCH (08:39)
[2018-05-16] MEDS: MULTIVITAMIN PO SCH (08:40)
[2018-05-16] MEDS: [UNRECOGNIZED DRUG - OTHER] PO SCH (08:40)
[2018-05-16] MEDS: VITAMIN B12 3000 MCG PO SCH (08:40)
--- NOTE | 2018-05-16 12:29 | DCNOTE ---
Subjective - Subjective Service Types: 69944 Hosp MT Day Mgmt simple under 30 min Discharge Date: 05/16/18 Subjective: Patient presents as euthymic with bright affect. She reports feeling "hopeful" about returning home. She states intent to continue with counseling and self- help support. Patient denies SI or passive wish. She denies urges or cravings to drink alcohol. Objective - Appearance Appearance: Well Developed/Nourished Dysmorphic Features: No Hygiene: Normal Grooming: Well Kept - Behavior Psychomotor Activities: Normal Exhibits Abnormal Movement: No - Attitude and Relatedness Attitude and Relatedness: Cooperative Eye Contact: Good - Speech Quality: Unpressured Latencies: Normal Quantity: Appropriate - Mood Patient's Decription of Mood: "Good" - Affect Observed Affect: Good Affect Consistent with: Euthymia - Thought Process Patient's Thought Process: Coherent, Goal Directed Thought Content: No Passive Wish, No Suicidal Planning, No Homicidal Ideation, No Paranoid Ideation - Sensorium Experiencing Hallucinations: No, Sensorium is Clear Type of Hallucinations: Visual: No, Auditory: No, Command: No - Level of Consciousness Level of Consciousness: Alert Orientation: Yes Intact, Yes Orientated to Time, Yes Orientated to Place, Yes Orientated to Person - Impulse Control Impulse Control: Intact - Insight and Judgement Insight and Judgement: Good - Group Participation Particating in Group Activities: Yes - Medication Management Medication Management Adherence: Yes DC Assessment - Assessment Clinical Impression: 48yo white female, , domiciled, employed with a history of unspecified depressive d/o. She presented to ED with c/o increased depression, SI with plan and near attempt. Patient reports increase in alcohol use over the past year, which has become problematic. She has successfully detoxed from alcohol and no longer endorses SI. Merits Inpatient Hospitalization: No Clear for Discharge: Adequate Clinical Respons, Acceptable Safety Profile Inpatient DSM-V Dx: F33.1 - major depressive d/o Discharge Planning - Discharge Planning Discharge Plan: Outpatient Follow Up Outpatient Program: Private Clinician(s) Recommendations for Continuing Care: Medication Management, Psychotherapy, Substance Abuse Counseling Medications: Current Medications Acetaminophen (Tylenol Tab*) 650 mg PO Q4H PRN PRN Reason: PAIN or TEMP > 101 F Al Hydrox/Mg Hydrox/Simethicone (Maalox Plus*) 30 ml PO Q4H PRN PRN Reason: INDIGESTION Cetirizine HCl (Zyrtec*) 10 mg PO DAILY [facility] Last Admin: 05/16/18 08:35 Dose: 10 mg Folic Acid (Folvite Tab*) 1 mg PO DAILY [facility] Last Admin: 05/16/18 08:37 Dose: Not Given Gabapentin (Neurontin Cap(*)) 300 mg PO BID PRN anxiety Last Admin: 05/15/18 20:38 Dose: 300 mg Metoprolol Succinate (Toprol Xl Tab*) 100 mg PO 0900 [facility] Last Admin: 05/16/18 08:36 Dose: 100 mg Montelukast Sodium (Singulair Tab*) 10 mg PO DAILY@1600 [facility] Last Admin: 05/15/18 17:03 Dose: 10 mg Multivitamins (Theragran Tab*) 1 tab PO DAILY [facility] Last Admin: 05/16/18 08:36 Dose: Not Given Pto:Vitamin B-12 (3000 Mcg Lozenges) 1 dose PO DAILY [facility] Last Admin: 05/16/18 08:40 Dose: 1 dose Flinstones Complete (Mvi) 1 admin PO DAILY [facility] Last Admin: 05/16/18 08:40 Dose: 1 admin Fluticasone/Salmeterol (Advair Diskus 250-50*) 1 puff INH BID [facility] Last Admin: 05/16/18 08:39 Dose: 1 puff Sertraline HCl (Zoloft*) 150 mg PO DAILY [facility] Last Admin: 05/16/18 08:36 Dose: 150 mg Thiamine HCl (Vitamin B-1 Tab*) 100 mg PO DAILY [facility] Last Admin: 05/16/18 08:36 Dose: Not Given Discharge Planning: Prescriptions provided for discharge [x] Yes [] No Follow up care details as per social work arrangements. Patient response to discharge plan: [x] eager for discharge [x] agreeable with discharge plan [] ambivalent about discharge [] disagrees with discharge today
--- NOTE | 2018-05-20 16:36 | DS ---
CC: Dr. Ahmadi; * DISCHARGE SUMMARY: DATE OF ADMISSION: 05/12/18 DATE OF DISCHARGE: 05/16/18 SUPERVISING PSYCHIATRIST: Marcus Gaffney MD * (DICTATED BY JOSE MARINA NP) DISCHARGE DIAGNOSES: 1. Alcohol use disorder, severe. 2. Major depressive disorder. CONDITION AT THE TIME OF DISCHARGE: Improved. Patient successfully detoxed from alcohol using the [facility] protocol. She reports improvement in mood. She reports improvement in hopefulness and desire to return home. She has tolerated medication changes and denies suicidal ideation. She denies cravings for alcohol use and reports desire to pursue counseling for all of the above. She was also given information about local alcoholic synonymous meetings. MENTAL STATUS EXAM: Angie is a 48-year-old white female, well groomed with short dark hair, petite. She is cooperative and pleasant. She answers questions fully. Patient is alert and oriented x3. Eye contact is good. Speech is soft, spontaneous, and articulate. Mood is euthymic with bright affect. No abnormal psychomotor activity noted. Thought process is logical, goal directed, and coherent. Thought content is negative for suicidal ideation. She denies AH or VH and there is no perceptual disturbances noted. Insight and judgment are good. Fund of knowledge is excellent. INSTRUCTION GIVEN TO PATIENT: A. Medications: 1. Gabapentin 300 mg p.o. b.i.d. p.r.n. anxiety and alcohol cravings. 2. Metoprolol succinate XL 100 mg p.o. daily. 3. Sertraline 150 mg p.o. daily. 4. Azithromycin 250 mg 2 tabs x1, then 1 tab daily for 3 days. B. Diet is regular. C. Activity: Ambulation as tolerated. Tobacco cessation is not applicable as patient is a nonsmoker. There are no pending labs or diagnostic studies. D. Followup Care: Patient will follow up with primary care provider, Dr. Ahmadi as needed for an appointment and she will follow up with for alcohol use disorder and major depressive disorder, counseling and therapy. E. Substance use followup: Above. HOSPITAL COURSE: A. Reason for admission: Patient presented to the emergency department with increased depression and intrusive thoughts of suicide. She had written a suicide note and prepared to take an overdose. Patient presented to the emergency department and was agreeable to admission to the adult BSU. B. Psychiatric treatment rendered: The patient was admitted to the adult BSU on voluntary status. Code status was full. She was placed on 15-minute checks for her safety and quickly was increased to 30-minute observation and allowed staff pass as she was in behavioral control. Patient was placed on [facility] protocol , but did not "score" and was successfully detoxed from alcohol. She participated fully in interview and appeared to be a good historian. She reported an increase in alcohol use since her mother's and cited a strange relationship with her 15-year-old stepson as primary stressors. Patient reported substantial alcohol use in the last year including shakes and obsessive thoughts of drinking alcohol. 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 Much of the family dynamics were discussed and the patient and her were given suggestions on coparenting and improving relationships with all of the members of the family. While on the unit, the patient was fully engaged in programming. She reported improvement in mood and anxiety. She and her visited often and discussed boundaries for their home. Her blood pressure remained elected. We increased metoprolol to 100 mg daily, which she tolerated well. The patient was titrated to 150 mg of sertraline to better target anxiety and she benefitted from use of gabapentin for this and for sleep. Generally, Angie was receptive to therapeutic suggestions. I believe she is an excellent candidate for therapy and assistance and family dynamics and boundary settings. JOSE MARINA NP [id number]/CPS #: [id number] ANNI
== END 2018-05-16 13:08 | disposition home or self-care (01) | DRG 751 ==
LOC: ED 12:48 → BSU 18:51
PROVIDERS: ADMIT Psychiatry & Neurology Psychiatry; ATTEND Psychiatry & Neurology Psychiatry
DX: F33.1 Major depressive disorder, recurrent, moderate (principal); R45.851 Suicidal ideations; F41.9 Anxiety disorder, unspecified; J30.2 Other seasonal allergic rhinitis; G47.30 Sleep apnea, unspecified; Z98.84 Bariatric surgery status; Z88.2 Allergy status to sulfonamides; Z91.040 Latex allergy status; G43.909 Migraine, unspecified, not intractable, without status migrainosus; Z82.49 Family history of ischemic heart disease and other diseases of the circulatory system; Z72.89 Other problems related to lifestyle; Z81.8 Family history of other mental and behavioral disorders; Z81.1 Family history of alcohol abuse and dependence
CPT/HCPCS: 36415; 80053; 80061; 80307; 80320; 80329; 81003; 83036; 84443; 85025; 99222; 99231; 99233; 99238; 99284; A9270-GY; G0480

== ENCOUNTER 2018-08-11 16:44 | Inpatient (IN) | payer BC ==
[2018-08-11] MEDS ORDERED: Nicotine Inhaler* 10 MG AMP INH PRN (17:04)
--- NOTE | 2018-08-11 17:24 | ED ---
Psychiatric Complaint - HPI Summary HPI Summary: Patient is a 48 y/o F presenting to ED with complaints of alcohol abuse and SI. She has had alcohol for the past nine days daily, last drink was 2100 yesterday. Patient has been having 2 bottles of wine daily. PMHx of anxiety, depression, patient was [place] [facility] [place]. She notes previous attempt of suicide. Patient reports that when she was admitted 2017, she had plan to take pills to by suicide. In room, she denies present plan of suicide. No HI. Patient is on sertraline 150 mg, she has been compliant with her medications. She notes that she does not go to see a therapist. PMHx of HTN, PSHx of gastric bypass. Sulfa, latex allergies are reported. She denies recreational drug usage, no smoking of cigarettes. On triage, pain is denied, nothing is noted to aggravate/alleviate Sx. Home medications and allergies are reviewed. - History Of Current Complaint Chief Complaint: EDMentalHealth Time Seen by Provider: 08/11/18 17:03 Hx Obtained From: Patient Hx Last Menstrual Period: 01/30/16 Onset/Duration: Lasting Days - daily alcohol past nine days, Still Present Timing: Days - daily alcohol past nine days Severity Currently: None - pain denied Character: Depressed Aggravating Factor(s): Nothing Alleviating Factor(s): Nothing Has Suicidal: Reports: Thoughts, Has Prior Attempt(s). Denies: With A Plan Has Homicidal: Denies: Thoughts - Allergies/Home Medications Allergies/Adverse Reactions: Allergies Allergy/AdvReac Type Severity Reaction Status Date / Time latex Allergy Rash And Verified 08/11/18 16:55 Itching Sulfa (Sulfonamide Allergy Nausea And Verified 08/11/18 16:55 Antibiotics) Vomiting Home Medications: Home Medications Calcium Citrate/Vitamin D3 [Calcium Citrate-Vit D3 Tablet] 1 tab PO DAILY [History Confirmed 08/11/18] Metoprolol Succinate XL TAB* [Toprol XL TAB*] 50 mg PO 0900 08/11/18 [History Confirmed 08/11/18] Montelukast Sodium TAB* [Singulair 10 MG TAB*] 10 mg PO DAILY 08/11/18 [History Confirmed 08/11/18] Multivitamin [Children's Chewable Vitamin] 1 each PO BID 08/11/18 [History Confirmed 08/11/18] PMH/Surg Hx/FS Hx/Imm Hx Endocrine/Hematology History: Denies: Hx Anticoagulant Therapy, Hx Blood Disorders, Hx Diabetes, Hx Thyroid Disease, Hx Anemia, Hx Unexplained Bleeding Cardiovascular History: Reports: Hx Hypertension - on meds, Other Cardiovascular Problems/Disorders - h/o calf cramps Denies: Hx Pacemaker/ICD Respiratory History: Reports: Hx Sleep Apnea, Other Respiratory Problems/ Disorders - Sinus Infections Denies: Hx Asthma, Hx Chronic Obstructive Pulmonary Disease (COPD) GI History: Reports: Hx Hiatal Hernia, Other GI Disorders - gastric bypass surgery 2012 Denies: Hx Jaundice, Hx Ulcer History: Denies: Hx Renal Disease Sensory History: Denies: Hx Contacts or Glasses, Hx Hearing Aid Opthamlomology History: Denies: Hx Contacts or Glasses Neurological History: Reports: Hx Headaches - R/T LIQUID DIET, Hx Migraine - OCCASIONALLY Psychiatric History: Reports: Hx Anxiety, Hx Substance Abuse - current/etoh Denies: Hx Attention Deficit Hyperactivity Disorder, Hx Eating Disorder, Hx Depression, Hx Panic Disorder, Hx Post Traumatic Stress Disorder, Hx Inpatient Treatment, Hx Community Mental Health Tx, Hx Schizophrenia, Hx Bipolar Disorder , Hx Suicide Attempt, Hx of Violent Episodes Against Others, Other Psychiatric Issues/Disorders - Cancer History Hx Chemotherapy: No Hx Radiation Therapy: No - Surgical History Surgery Procedure, Year, and Place: gastric bypass Hx Anesthesia Reactions: No Infectious Disease History: No Infectious Disease History: Denies: Hx Clostridium Difficile, Hx Hepatitis, Hx Human Immunodeficiency Virus (HIV), Hx of Known/Suspected MRSA, Hx Shingles, Hx Tuberculosis, Hx Known/ Suspected VRE, Hx Known/Suspected VRSA, History Other Infectious Disease, Traveled Outside the [place] in Last 30 Days - Family History Known Family History: Positive: Cardiac Disease - [place] - father, Hypertension, Other - [place] - mother Family History: Father and mother with depression. Father with alcoholism, [place]. - Social History Alcohol Use: states she drinks 5-6 times per week Alcohol Amount: daily for the past 1 year Hx Substance Use: No Substance Use Type: Reports: None Hx Tobacco Use: No Smoking Status (MU): Never Smoked Tobacco Review of Systems Constitutional: Other - POSITIVE - ALCOHOL USAGE Negative: Fever - on vitals, temp is 96.8 F Psychological: Other - SI WITH PLAN, NO HI All Other Systems Reviewed And Are Negative: Yes Physical Exam - Summary Physical Exam Summary: GENERAL: Patient is a well-developed and nourished female who is lying comfortable in the stretcher. Patient is not in any acute respiratory distress. HEAD AND FACE: Normocephalic EYES: PERRLA, EOMI x 2. EARS: Hearing grossly intact. MOUTH: Oropharynx within normal limits. NECK: Supple, trachea is midline, no adenopathy, no JVD, no carotid bruit. CHEST: Symmetric, no tenderness at palpation LUNGS: Clear to auscultation bilaterally. No wheezing or crackles. CVS: Regular rate and rhythm, S1 and S2 present, no murmurs or gallops appreciated. ABDOMEN: Soft, non-tender. Bowel sounds are normal. No abdominal abnormal pulsations. EXTREMITIES: Full ROM in all major joints, no edema, no cyanosis or clubbing. NEURO: Alert and oriented x 3. No acute neurological deficits. Speech is normal and follows commands. PSYCH: Patient is noted to be tearful with sad affect, SI with no plan, no HI Triage Information Reviewed: Yes Vital Signs On Initial Exam: Initial Vitals Temp Pulse Resp BP Pulse Ox 96.8 F 88 19 193/97 97 08/11/18 16:51 08/11/18 16:51 08/11/18 16:51 08/11/18 16:51 08/11/18 16:51 Vital Signs Reviewed: Yes Diagnostics - Vital Signs Vital Signs Temp Pulse Resp BP Pulse Ox 08/11/18 16:51 96.8 F 88 19 193/97 97 - Laboratory Result Diagrams: 08/11/18 17:57 08/11/18 17:57 Lab Statement: Any lab studies that have been ordered have been reviewed, and results considered in the medical decision making process. Re-Evaluation - Re-Evaluation First Eval Re-Evaluation Time: 19:03 Comment: Patient cleared for MHE. Course/Dx - Course Course Of Treatment: Patient is a 48 y/o F presenting to ED with complaints of alcohol abuse and SI. She has had alcohol for the past nine days daily, last drink was 2100 yesterday. Patient has been having 2 bottles of wine daily. PMHx of anxiety, depression, patient was [place] [facility] [place]. She notes previous attempt of suicide. Patient reports that when she was admitted Thanksgiving 2018, she had plan to take pills to by suicide. In room, she denies present plan of suicide. Patient is on sertraline 150 mg, she has been compliant with her medications. She notes that she does not go to see a therapist. PMHx of HTN, PSHx of gastric bypass. Sulfa, latex allergies are reported. She denies recreational drug usage, no smoking of cigarettes. On physical exam, patient is noted to be tearful with sad affect, SI with no plan, no HI. Labs showed MCH 32, MPV 6.5, glucose 120, calcium 8.5, TSH 2.65. UA showed trace ketones, ascorbic acid. Tox screen was negative. Patient was medically cleared for MHE. During ED course, patient received Tylenol 650 mg PO ONCE. Patient's case was reviewed by Dr. Gaffney, patient will be admitted. - Differential Dx/Clinical Impression Provider Diagnosis: Depression - Physician Notifications Discussed Care Of Patient With: Marcus Gaffney Time Discussed With Above Provider: 20:31 Instructed by Provider To: Other - Patient's case was reviewed by Dr. Gaffney, patient will be admitted. Discharge - Sign-Out/Discharge Documenting (check all that apply): Patient Departure - admit - Discharge Plan Condition: Good [place] [place]errals: Alfredito Ahmadi MD [Primary Care Provider] - - Billing Disposition and Condition Condition: GOOD Disposition: Psychiatric Facility [facility] [place] Attestation Statements Document Initiated by Marlaibprabhjot: Yes Documenting Scribe: STALIN GRANADOS Provider For Whom Marlaibe is Documenting (Include Credential): ASHLEY MONET MD Scribe Attestation: ISTALIN , scribed for ASHLEY MONET MD on 08/11/18 at 2133. Scribe Documentation Reviewed: Yes Provider Attestation: The documentation as recorded by the STLAIN montgomery accurately reflects the service I personally performed and the decisions made by me, ASHLEY MONET MD Status of Scribe Document: Viewed
[2018-08-11] MEDS ORDERED: Acetaminophen TAB* 325 MG PO ONE (17:51)
[2018-08-11 18:05] LABS: ABS Basophils 0.1 10^3/ul (0-0.2); ABS Eosinophils 0 10^3/ul (0-0.6); ABS Lymphocytes 1.2 10^3/ul (1.0-4.8); ABS Monocytes 0.5 10^3/ul (0-0.8); ABS Neutrophils 3.8 10^3/ul (1.5-7.7); ABS Nucleated RBC 0 10^3/ul; Eosinophil % 0.4 %; Hematocrit 40 % (35-47); Hemoglobin 13.4 g/dl (12.0-16.0); Lymphocyte % 21.5 %; Mean Corpuscular HGB Conc 34 g/dl (31-36); Mean Corpuscular Hemoglobin 32 pg (27-31); Mean Corpuscular Volume 94 fL (80-97); Mean Platelet Volume 6.5 fL (7.4-10.4); Nucleated Red Blood Cells % 0; Platelet Count 265 10^3/ul (150-450); Red Blood Count 4.22 10^6/ul (4.00-5.40); Red Cell Distribution Width 14 % (10.5-15); White Blood Count 5.7 10^3/ul (3.5-10.8)
[2018-08-11 18:21] LABS: ALT 11 U/L (7-52); AST 19 U/L (13-39); Albumin/Globulin Ratio 1.3 (1-3); Alkaline Phosphatase 52 U/L (34-104); Anion Gap 7 mmol/L (2-11); Blood Urea Nitrogen 9 mg/dL (6-24); CO2 Carbon Dioxide 27 mmol/L (22-32); Calcium 8.5 mg/dL (8.6-10.3); Chloride 103 mmol/L (101-111); EGFR African American 149.6 (>60); EGFR Non-African American 123.6 (>60); Glucose 120 mg/dL (70-100); Potassium 3.5 mmol/L (3.5-5.0); Sodium 137 mmol/L (135-145)
[2018-08-11 18:33] LABS: Urine Appearance Clear; Urine Bilirubin Negative (Negative); Urine Blood Negative (Negative); Urine Color Yellow; Urine Glucose Negative (Negative); Urine Ketones Trace (Negative); Urine Nitrite Negative (Negative); Urine Protein Negative (Negative); Urine Urobilinogen Negative (Negative)
[2018-08-11 18:46] LABS: Acetaminophen < 15 mcg/mL; Alcohol < 10 mg/dL (<10); Salicylate < 2.50 mg/dL (<30)
[2018-08-11 19:00] LABS: TSH (Thyroid Stimulating Horm) 2.65 mcIU/mL (0.34-5.60)
[2018-08-11 19:09] LABS: Barbiturates Urine Screen None Detected (None Detect); Benzodiazepine Urine Screen None Detected (None Detect); Urine Cannabinoids Screen None Detected (None Detect)
[2018-08-11] MEDS ORDERED: Al Hydrox/Mg Hydrox/Simet LIQ* 30 ML UDC PO PRN (22:23)
[2018-08-12] MEDS ORDERED: cloNIDine TAB* 0.1 MG ONE (00:38)
[2018-08-12] MEDS: cloNIDine TAB* 0.1 MG PO SCH ×4 (00:39→21:22)
[2018-08-12] MEDS: Acetaminophen TAB* 325 MG PO PRN ×2 (04:08→10:07)
[2018-08-12] MEDS: Vitamin THERAPEUTIC TAB PO SCH (08:21)
[2018-08-12] MEDS ORDERED: Metoprolol Succinate XL TAB* 50 MG PO SCH (09:00)
--- NOTE | 2018-08-12 10:44 | PN ---
BSU: Group Therapy Note - Service Type Service Type: 72494 Group Psychotherapy - Cognitive Behavioral Group Therapy ( CBT):Patient was attentive and participatory in CBT programming this morning, and remained in good behavioral control. Patient expressed positive insights regarding relevant treatment interventions and goals.
[2018-08-12] MEDS ORDERED: LORazepam TAB(*) 1 MG PO SCH (11:00)
[2018-08-12] MEDS ORDERED: Sertraline* 100 MG TAB PO SCH (11:00)
[2018-08-12] MEDS: Folic Acid TAB* 1 MG PO SCH (11:49)
[2018-08-12] MEDS: Thiamine TAB* 100 MG TAB PO SCH (11:49)
[2018-08-12] MEDS ORDERED: hydrOXYzine HCL TAB* 50 MG PO PRN (12:19)
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
[2018-08-12] MEDS: Mometasone/Formoter 200/5 MDI INH SCH (21:23)
[2018-08-13 08:09] LABS: HDL Cholesterol 104.5 mg/dL
[2018-08-13] MEDS: Cetirizine* 10 MG TAB PO SCH (08:47)
[2018-08-13] MEDS: Folic Acid TAB* 1 MG PO SCH (08:48)
[2018-08-13] MEDS: Thiamine TAB* 100 MG TAB PO SCH (08:48)
[2018-08-13] MEDS: cloNIDine TAB* 0.1 MG PO SCH ×2 (08:48→14:32)
[2018-08-13] MEDS: Cyanocobalamin TAB* 500 MCG PO SCH (08:49)
[2018-08-13] MEDS: Vitamin THERAPEUTIC TAB PO SCH (08:49)
[2018-08-13] MEDS: Metoprolol Succinate XL TAB* 100 MG PO SCH (08:49)
[2018-08-13] MEDS: Sertraline* 100 MG TAB PO SCH ×2 (08:49→20:26)
[2018-08-13] MEDS: Montelukast Sodium TAB* 10 MG PO SCH (08:49)
[2018-08-13] MEDS: Mometasone/Formoter 200/5 MDI INH SCH ×2 (08:53→20:25)
--- NOTE | 2018-08-13 11:45 | PN ---
BSU: Group Therapy Note - Service Type Service Type: [id number] Group Psychotherapy - Cognitive Behavioral Group Therapy ( CBT):Patient was attentive and participatory in CBT programming this morning, and remained in good behavioral control. Patient expressed positive insights regarding relevant treatment interventions and goals.
[2018-08-13] MEDS ORDERED: cloNIDine TAB* 0.1 MG PO PRN (16:04)
--- NOTE | 2018-08-13 16:14 | PN ---
Subjective - Subjective Date of Service: 08/13/18 Service Type: 49893 Hosp care 25 min moderate complexity Subjective: Met with patient and her during visiting hours. Discussed family dynamics and difficult conversations. Patient tearful at times and acknowledges impact of alcohol use. Both discussed sources of frustration and hurt. Patient and noted to have positive interactions, as well. Patient denies withdrawal symptoms or cravings for alcohol. She has not scored on WAM, other than elevated BPs. She decided to refrain from prescription antabuse due to frequent use of hand story teller in school. Patient asked insurance underwriter presence while she phoned marine oil terminal superintendent and left message. Objective - Appearance Appearance: Well Developed/Nourished Dysmorphic Features: Yes Hygiene: Normal Grooming: Well Kept - Behavior Psychomotor Activities: Normal Exhibits Abnormal Movement: No - Attitude and Relatedness Attitude and Relatedness: Cooperative Eye Contact: Good - Speech Quality: Unpressured Latencies: Normal Quantity: Appropriate - Mood Patient's Decription of Mood: "Anxious" - Affect Observed Affect: Good Affect Consistent with: Euthymia - Thought Process Patient's Thought Process: Coherent Thought Content: No Passive Wish, No Suicidal Planning, No Homicidal Ideation, No Paranoid Ideation - Sensorium Experiencing Hallucinations: No, Sensorium is Clear Type of Hallucinations: Visual: No, Auditory: No, Command: No - Level of Consciousness Level of Consciousness: Alert Orientation: Yes Intact, Yes Orientated to Time, Yes Orientated to Place, Yes Orientated to Person - Impulse Control Impulse Control: Intact - Insight and Judgement Insight and Judgement: Fair - Group Participation Particating in Group Activities: Yes - Medication Management Medication Management Adherence: Yes Assessment - Assessment Merits Inpatient Hospitalization: For Immediate Safety, For Stabilization Inpatient DSM-V Dx: F33.2 Clinical Impression: 48yo wf with history of MDD and alcohol use d/o who presented to ED with support people requesting voluntary admission due to worsening alcohol dependence. Plan - Plan Treatment Plan: Name: PATO WOOD Birthdate: 1970 [id number] continue acute intensive psychiatric treatment. october dec to q30min and allow staff pass, computer use per RN discretion. DC WAM. change clonidine to prn for anxiety discharge planning to include outpatient referrals. Continued Medication Management: Different Medication Medications: Current Medications Acetaminophen (Tylenol Tab*) 650 mg PO Q4H PRN PRN Reason: PAIN or TEMP > 101 F Last Admin: 08/12/18 10:07 Dose: 650 mg Al Hydrox/Mg Hydrox/Simethicone (Maalox Plus*) 30 ml PO Q4H PRN PRN Reason: INDIGESTION Cetirizine HCl (Zyrtec*) 10 mg PO DAILY [facility]; Protocol Last Admin: 08/13/18 08:47 Dose: 10 mg Clonidine HCl (Catapres Tab*) 0.1 mg PO TID PRN PRN Reason: ANXIETY Cyanocobalamin (Vitamin B12 Tab*) 1,000 mcg PO DAILY [facility] Last Admin: 08/13/18 08:49 Dose: 1,000 mcg Folic Acid (Folvite Tab*) 1 mg PO DAILY [facility] Last Admin: 08/13/18 08:48 Dose: 1 mg Hydroxyzine HCl (Atarax Tab*) 50 mg PO Q4H PRN PRN Reason: ANXIETY Last Admin: 08/12/18 14:33 Dose: 50 mg Metoprolol Succinate (Toprol Xl Tab*) 100 mg PO 0900 [facility] Last Admin: 08/13/18 08:49 Dose: 100 mg Mometasone Furoate/Formoterol Fumar (Dulera 200/5 Mdi*) 2 puff INH BID [facility] Last Admin: 08/13/18 08:53 Dose: Not Given Montelukast Sodium (Singulair Tab*) 10 mg PO DAILY [facility] Last Admin: 08/13/18 08:49 Dose: 10 mg Multivitamins (Theragran Tab*) 1 tab PO DAILY [facility] Last Admin: 08/13/18 08:49 Dose: 1 tab Nicotine (Nicotine Inhaler*) 10 mg INH Q2H PRN PRN Reason: CRAVING Sertraline HCl (Zoloft*) 100 mg PO BID [facility] Last Admin: 08/13/18 08:49 Dose: 100 mg Thiamine HCl (Vitamin B-1 Tab*) 100 mg PO DAILY [facility] Last Admin: 08/13/18 08:48 Dose: 100 mg - Discharge Plan Discharge Plan: Inpatient Hospitalization Outpatient Program: Private Clinician(s)
--- NOTE | 2018-08-13 16:19 | PN ---
BSU: Group Therapy Note - Service Type Service Type: [id number] Group Psychotherapy - Medication Education Group: Patient was attentive and participatory in group, and remained in good behavioral control. Patient expressed positive insights regarding relevant treatment interventions. Patient stated understanding of material discussed and had appropriate questions.
--- NOTE | 2018-08-13 18:04 | CONS ---
PSYCHOLOGICAL REPORT: DATE OF CONSULTATION: 08/13/18 PROCEDURE CODE: [id number] REASON FOR REFERRAL: Angie was referred for personality testing in order to help with diagnostic impression including presence and severity of depression and anxiety. TEST ADMINISTERED: Angie completed the [place] Multiphasic Personality Inventory-2 (MMPI-2) and was given feedback in an individual conversation regarding testing results. She has also been seen in the context of cognitive behavioral group psychotherapy, lead by this provider on 2 occasions to date. RELEVANT HISTORY: This is Angie's second admission to this unit with the first occurring in April 2018 secondary to depression and suicidal behavior. This time, she was brought to the emergency room for evaluation by friends who to decided to intervene secondary to concerns regarding increased alcohol consumption and depression. Angie indicates having had some physical manifestations of withdrawal at times waking up with "shakes" and increased alcohol intake occurring in the context of weekend especially. She reports drinking a bottle of wine daily and more so on weekends. 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 She has also been very involved in helping raise her 's 19- year-old son who currently lives with grandmother. Angie describes the children as a chronic stressor as she was very involved in helping the older son apply to college and was very disappointed when he dropped out. He apparently decided to live with the grandmother after Angie and her demanded that he engage in productive behavior whether it was re-applying to school or in employment. He decided to move in with his grandmother instead apparently. She also describes the 15-year-old as being a very difficult child who has always hated school, which Angie often being the parent who had to make him attend. He continues to live with them part-time. Angie also describes work stress as encroaching with her very emotionally demanding job involves at times physical restrains of young children. Discussion addressed professional burnout and escalation of symptoms that are characteristic of it. TEST RESULTS: Angie provides a valid protocol on this administration of the MMPI- 2, although her FB scale is elevated (T=75) slightly. She elevates the 2 somatic scales as primary elevations with lesser elevations occurring on psychopathic deviate and paranoia scales. There are no other elevations on the latter scales. Rather reassuringly, her depression scale is subclinical (T=64), although it approaches an elevation. Feedback with Angie emphasized how persons who elevate the neurotic triad often employ repression as a primary coping mechanism. This was discussed in the context of being aware how one feels, but unwilling to engage in content that drives depressive affect. Angie described having had gastric bypass surgery done approximately 4 years ago which was quite successful. She describes loosing over 100 pounds in a reliable fashion. She associates this experience perhaps with why she elevates the somatic scales currently. Regardless, discussion emphasized the importance of finding expression of negative affect in more proactive fashion as opposed to avoiding engagement in either discussion of what disturbs her or in findings other avenues of managing negative emotions, both associated with family as well as work context. IMPRESSION AND RECOMMENDATIONS: Angie currently is describing positive insights regarding substance abuse with concerns regarding followup from her prior hospitalizations. Angie describes brief followup, but did not follow through with services in the outpatient context. Currently, more active participation in outpatient services is being discussed with the hopes that she is able extend treatment over a more significant period of time. Angie impresses as a good candidate to benefit from insight-oriented psychotherapies, especially from educational content. She is able to identify social isolation as problematic for her, especially on the weekends, which appears to in part at least have increased consumption levels. She can also differentiate between acute and chronic stress with discussion addressing establishing better boundaries in terms of her stepsons in particular. She describes being very frustrated with a lack of progress that she sees in both in school and home context, but describes understanding that they have to make their own way and she cannot do things for them. Regardless, she responds positively to behavioral activation ideas including exercise and awareness of avoiding and socially isolating behaviors. DIAGNOSTIC IMPRESSION: Supports concerns regarding recurrent major depressive episodes, severe, without psychosis; alcohol use disorder as well as hypertension and her history of having gastric bypass surgery. [id number]/[facility] #: [id number] ANNI
[2018-08-13] MEDS: Acetaminophen TAB* 325 MG PO PRN (20:29)
[2018-08-14] MEDS: Metoprolol Succinate XL TAB* 100 MG PO SCH (08:50)
[2018-08-14] MEDS: Folic Acid TAB* 1 MG PO SCH (08:51)
[2018-08-14] MEDS: Cetirizine* 10 MG TAB PO SCH (08:51)
[2018-08-14] MEDS: Cyanocobalamin TAB* 500 MCG PO SCH (08:51)
[2018-08-14] MEDS: Vitamin THERAPEUTIC TAB PO SCH (08:51)
[2018-08-14] MEDS: Mometasone/Formoter 200/5 MDI INH SCH ×2 (08:51→20:59)
[2018-08-14] MEDS: Sertraline* 100 MG TAB PO SCH ×2 (08:51→20:59)
[2018-08-14] MEDS: Montelukast Sodium TAB* 10 MG PO SCH (08:51)
[2018-08-14] MEDS: Thiamine TAB* 100 MG TAB PO SCH (08:51)
--- NOTE | 2018-08-14 11:37 | PN ---
BSU: Group Therapy Note - Service Type Service Type: 12704 Group Psychotherapy - Cognitive Behavioral Group Therapy ( CBT):Patient was attentive and participatory in CBT programming this morning, and remained in good behavioral control. Patient expressed positive insights regarding relevant treatment interventions and goals.
--- NOTE | 2018-08-14 16:25 | PN ---
Subjective - Subjective Date of Service: 08/14/18 Service Type: 10861 Hosp care 15 min low complexity Subjective: Patient is euthymic with bright affect. She reports having vivid dreams that periodically woke her but denies these to be problematic. She reports improved mood and decreased anxiety. She states she did not attend AA on unit last evening because of fear of being the only attendee. She states hopefulness to be more comfortable with regular meeting attendance in the community. She agrees to trial of naltrexone for alcohol use d/o and would prefer Vivitrol injection option. Objective - Appearance Appearance: Well Developed/Nourished Dysmorphic Features: No Hygiene: Normal Grooming: Well Kept - Behavior Psychomotor Activities: Normal Exhibits Abnormal Movement: No - Attitude and Relatedness Attitude and Relatedness: Cooperative Eye Contact: Good - Speech Quality: Unpressured Latencies: Normal Quantity: Appropriate - Mood Patient's Decription of Mood: "Good" - Affect Observed Affect: Good Affect Consistent with: Euthymia - Thought Process Patient's Thought Process: Coherent, Goal Directed Thought Content: No Passive Wish, No Suicidal Planning, No Homicidal Ideation, No Paranoid Ideation - Sensorium Experiencing Hallucinations: No, Sensorium is Clear Type of Hallucinations: Visual: No, Auditory: No, Command: No - Level of Consciousness Level of Consciousness: Alert Orientation: Yes Intact, Yes Orientated to Time, Yes Orientated to Place, Yes Orientated to Person - Impulse Control Impulse Control: Intact - Insight and Judgement Insight and Judgement: Good - Group Participation Particating in Group Activities: Yes - Medication Management Medication Management Adherence: Yes Assessment - Assessment Merits Inpatient Hospitalization: For Immediate Safety, For Stabilization Inpatient DSM-V Dx: F33.1 Clinical Impression: 48yo wf with hx of MDD and gastric bypass who presents to ED with support system due to increased depressive sx and alcohol dependence. She has successfully detoxed from alcohol and is accepting referrals for outpatient mental health and substance use treatment. Plan - Plan Treatment Plan: Name: PATO WOOD Birthdate: 1970 [id number] continue acute intensive psychiatric treatment. october dec to q30min and allow staff pass, computer use per RN discretion. trial oral naltrexone. if tolerates, will give monthly IM prior to discharge. discharge planning to include outpatient referrals to private therapist and alcohol and drug counl. Continued Medication Management: Different Medication Medications: Current Medications Acetaminophen (Tylenol Tab*) 650 mg PO Q4H PRN PRN Reason: PAIN or TEMP > 101 F Last Admin: 08/13/18 20:29 Dose: 650 mg Al Hydrox/Mg Hydrox/Simethicone (Maalox Plus*) 30 ml PO Q4H PRN PRN Reason: INDIGESTION Cetirizine HCl (Zyrtec*) 10 mg PO DAILY [facility]; Protocol Last Admin: 08/14/18 08:51 Dose: 10 mg Clonidine HCl (Catapres Tab*) 0.1 mg PO TID PRN PRN Reason: ANXIETY Last Admin: 08/13/18 20:26 Dose: 0.1 mg Cyanocobalamin (Vitamin B12 Tab*) 1,000 mcg PO DAILY [facility] Last Admin: 08/14/18 08:51 Dose: 1,000 mcg Folic Acid (Folvite Tab*) 1 mg PO DAILY [facility] Last Admin: 08/14/18 08:51 Dose: 1 mg Hydroxyzine HCl (Atarax Tab*) 50 mg PO Q4H PRN PRN Reason: ANXIETY Last Admin: 08/12/18 14:33 Dose: 50 mg Metoprolol Succinate (Toprol Xl Tab*) 100 mg PO 0900 [facility] Last Admin: 08/14/18 08:50 Dose: 100 mg Mometasone Furoate/Formoterol Fumar (Dulera 200/5 Mdi*) 2 puff INH BID [facility] Last Admin: 08/14/18 08:51 Dose: Not Given Montelukast Sodium (Singulair Tab*) 10 mg PO DAILY [facility] Last Admin: 08/14/18 08:51 Dose: 10 mg Multivitamins (Theragran Tab*) 1 tab PO DAILY [facility] Last Admin: 08/14/18 08:51 Dose: 1 tab Naltrexone HCl (Naltrexone Tab*) 50 mg PO BEDTIME [facility]; Protocol Naltrexone HCl (Vivitrol Inj) 380 mg IM ONCE ONE Stop: 08/15/18 10:01 Nicotine (Nicotine Inhaler*) 10 mg INH Q2H PRN PRN Reason: CRAVING Sertraline HCl (Zoloft*) 100 mg PO BID [facility] Last Admin: 08/14/18 08:51 Dose: 100 mg Thiamine HCl (Vitamin B-1 Tab*) 100 mg PO DAILY [facility] Last Admin: 08/14/18 08:51 Dose: 100 mg - Discharge Plan Discharge Plan: Outpatient Follow Up Outpatient Program: [facility]
[2018-08-14] MEDS ORDERED: Naltrexone TAB* 50 MG TAB PO SCH (21:00)
[2018-08-15 08:07] VITALS: BP 159/90
[2018-08-15] MEDS: Vitamin THERAPEUTIC TAB PO SCH (08:42)
[2018-08-15] MEDS: Sertraline* 100 MG TAB PO SCH (08:42)
[2018-08-15] MEDS: Cetirizine* 10 MG TAB PO SCH (08:42)
[2018-08-15] MEDS: Folic Acid TAB* 1 MG PO SCH (08:42)
[2018-08-15] MEDS: Metoprolol Succinate XL TAB* 100 MG PO SCH (08:42)
[2018-08-15] MEDS: Montelukast Sodium TAB* 10 MG PO SCH (08:42)
[2018-08-15] MEDS: Thiamine TAB* 100 MG TAB PO SCH (08:42)
[2018-08-15] MEDS: Cyanocobalamin TAB* 500 MCG PO SCH (08:42)
[2018-08-15] MEDS: Mometasone/Formoter 200/5 MDI INH SCH (08:46)
[2018-08-15] MEDS ORDERED: Naltrexone INJ 380 MG IM ONE (10:00)
--- NOTE | 2018-08-15 22:34 | DS ---
DISCHARGE SUMMARY: DATE OF ADMISSION: 08/11/18 DATE OF DISCHARGE: 08/15/18 SUPERVISING PSYCHIATRIST: Dr. Marcus Gaffney.* (DICTATED BY JOSE MARINA NP) DISCHARGE DIAGNOSES: 1. Major depressive disorder. 2. Alcohol use disorder. 3. Hypertension. CONDITION AT TIME OF DISCHARGE: Improved. The patient euthymic with bright affect. She successfully detoxed from alcohol without going on the [facility] protocol. She reports improvement in mood. Blood pressure has stabilized on metoprolol 100 mg daily. She has tolerated increase of sertraline and changed to b.i.d. dosing due to history of gastric bypass surgery. She denies cravings for alcohol use and reports desire to pursue counselling. She expresses eagerness to work with Ade Mejias in private practice. She agrees to follow up with [facility] as well as her primary care provider, Dr. Ahmadi. The patient received Vivitrol IM injection today prior to discharge. She will be due for this again in 4 weeks. She was given information about naltrexone including need to inform medical personnel and to avoid alcohol use or opioid use. MENTAL STATUS EXAM: A 48-year-old white female, well groomed with short dark hair. She is cooperative and pleasant. She answers questions fully. She is alert and oriented x3. Eye contact is good. Speech is normal rate, rhythm, and volume. Mood is euthymic with bright affect. No abnormal psychomotor activity noted. Thought process is logical, goal directed, and coherent. Thought content is negative for suicidal ideation or urges for alcohol use. She denies auditory or visual hallucinations and there are no perceptual disturbances noted. Insight and judgment are good. Fund of knowledge is excellent. INSTRUCTIONS GIVEN TO THE PATIENT: A. Medications: 1. As sated above, she received Vivitrol IM 380 mg today. 2. Hydroxyzine 50 mg p.o. b.i.d. p.r.n. anxiety. 3. Metoprolol succinate XL 100 mg p.o. q.a.m. 4. Sertraline 100 mg p.o. b.i.d. She will resume the following medications through primary care provider: 1. Cetirizine 10 mg daily. 2. Vitamin B12 1000 mcg p.o. daily. 3. Flonase 2 sprays both nares daily. 4. Dulera 20/5 2 puffs inhaled b.i.d. 5. Singulair 10 mg daily. 6. Multivitamins. B. Diet is regular. C. Activity: Ambulation as tolerated. Tobacco cessation is not applicable. There are no pending labs or diagnostic studies. D. Followup care: As stated above the patient is referred to Ade Mejias LMSW , for continued therapy. She is referred to [facility] and has an intake on 08/25/18, and she can follow up with her primary care provider as needed, Dr. Ahmadi. HOSPITAL COURSE: Part A. Reason for admission: The patient presented to the emergency department with a friend due to increased alcohol use and worsening depression and anxiety. The patient was irritable and felt her acquaintances have betrayed her trust by bringing her to the emergency department, but she agreed to do so. She identified daily alcohol use worsening since hospitalization here in April 2018. She states she did not connect well with the therapist that she was referred to and stopped going to him. She states that she uses alcohol to manage the fear and anxiety and depression. She identified drinking daily at least a bottle of wine. She endorsed symptoms of depressed mood and including guilt, hopelessness, and isolation. She expressed problematic stressors of family dynamics with her and her stepson. Part B. Psychiatric treatment rendered: The patient was admitted to adult behavioral services unit on voluntary status. She was placed on 15-minute checks for her safety and was monitored via [facility] protocol for alcohol withdrawal. She immediately started engaging in individual sessions with staff and programming groups. We increased her metoprolol to 100 mg due to elevated blood pressures and she responded to this well. We discussed options of medications for alcohol use disorder including Antabuse and naltrexone. 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 She agreed to trial of naltrexone for alcohol use disorder. She tolerated the oral dose with no untoward effect and accepted IM monthly injection today. The patient was pleasant and cooperative on unit. During conversations with staff and providers, she minimized alcohol use at times or often placed external blame for reasons for drinking. She declined a referal to inpatient substance use treatment; accepted an offer to outpatient treatment at [facility]. This handbook writer met with the patient and her , during which time, they discussed difficult family dynamics. They were both receptive to reframing statements and improved communication modeling. Her was given information about Al-Anon and reported that he wants to be supportive to Angie. He even mentioned possibly seeing a counsellor as well. Of course, this was encouraged. On day of discharge, the patient reported readiness. She exhibited future orientation. She has been decreased to 30-minute observations. She has been safe on naltrexone and behavioral control. Due to obligation to treat in least restrictive setting, discharge was agreed upon by treatment team. We hope that she does well in the outpatient setting and is encouraged to call with any questions or concerns after discharge. JOSE MARINA NP [id number]/[facility] #: [id number] ANNI
== END 2018-08-15 12:00 | disposition home or self-care (01) | DRG 751 ==
LOC: ED 16:44 → BSU 21:18
PROVIDERS: ADMIT Psychiatry & Neurology Psychiatry; ATTEND Psychiatry & Neurology Psychiatry
DX: F33.2 Major depressive disorder, recurrent severe without psychotic features (principal); R45.851 Suicidal ideations; F10.10 Alcohol abuse, uncomplicated; Y90.0 Blood alcohol level of less than 20 mg/100 ml; I10 Essential (primary) hypertension; J30.2 Other seasonal allergic rhinitis; G47.30 Sleep apnea, unspecified; G43.909 Migraine, unspecified, not intractable, without status migrainosus; Z79.899 Other long term (current) drug therapy; Z98.84 Bariatric surgery status; Z88.2 Allergy status to sulfonamides; Z91.040 Latex allergy status
CPT/HCPCS: 36415; 80053; 80061; 80307; 80320; 80329; 81003; 83036; 84443; 85025; 90853; 96130; 99222; 99231; 99232; 99238; 99284; A9270-GY; G0480; J2315

== ENCOUNTER 2019-06-30 12:30 | Emergency (ER) | payer BC ==
--- NOTE | 2019-06-30 13:19 | ED ---
Psychiatric Complaint - HPI Summary HPI Summary: This pt is a 49 y/o female [facility]/o increased depression and SI. Pt reports she has been dealing with depression for the past 1 year but states it has worsened over the last couple of days. She notes recent stressor of "relationship issues" with her lately and has asked her to leave. Pt states she has SI thoughts with SI plan of overdosing on pills. She reports she has had prior suicide attempts by overdosing in the past. Pt admits to alcohol use and drinking alcohol today. Denies tobacco and drug use. PMHx: cysts. - History Of Current Complaint Chief Complaint: EDSuicidal Time Seen by Provider: 06/30/19 13:12 Hx Obtained From: Patient Hx Last Menstrual Period: 01/30/16 Onset/Duration: Lasting Weeks, Still Present, Worse Since - couple of days Timing: Constant Severity Currently: Moderate Character: Depressed Aggravating Factor(s): Recent Stress Alleviating Factor(s): Nothing Associated Signs And Symptoms: Positive: Negative Has Suicidal: Reports: Thoughts, With A Plan, Has Prior Attempt(s) Has Homicidal: Denies: Thoughts, With A Plan Recent Stressor(s): relationship issues with her - Allergies/Home Medications Allergies/Adverse Reactions: Allergies Allergy/AdvReac Type Severity Reaction Status Date / Time latex Allergy Rash And Verified 08/11/18 16:55 Itching Sulfa (Sulfonamide Allergy Nausea And Verified 08/11/18 16:55 Antibiotics) Vomiting Home Medications: Home Medications Metoprolol Succinate XL TAB* [Toprol XL TAB*] 100 mg PO DAILY 06/30/19 [History Confirmed 06/30/19] Sertraline* [Zoloft*] 200 mg PO DAILY 06/30/19 [History Confirmed 06/30/19] PMH/Surg Hx/FS Hx/Imm Hx Endocrine/Hematology History: Denies: Hx Anticoagulant Therapy, Hx Blood Disorders, Hx Diabetes, Hx Thyroid Disease, Hx Anemia, Hx Unexplained Bleeding Cardiovascular History: Reports: Hx Hypertension - on meds, Other Cardiovascular Problems/Disorders - h/o calf cramps Denies: Hx Pacemaker/ICD Respiratory History: Reports: Hx Sleep Apnea, Other Respiratory Problems/ Disorders - Sinus Infections Denies: Hx Asthma, Hx Chronic Obstructive Pulmonary Disease (COPD) GI History: Reports: Hx Hiatal Hernia, Other GI Disorders - gastric bypass surgery 2013 Denies: Hx Jaundice, Hx Ulcer History: Denies: Hx Renal Disease Sensory History: Denies: Hx Contacts or Glasses, Hx Hearing Aid Opthamlomology History: Denies: Hx Contacts or Glasses Neurological History: Reports: Hx Headaches - R/T LIQUID DIET, Hx Migraine - OCCASIONALLY Psychiatric History: Reports: Hx Anxiety, Hx Depression, Hx Substance Abuse - current/etoh Denies: Hx Attention Deficit Hyperactivity Disorder, Hx Eating Disorder, Hx Panic Disorder, Hx Post Traumatic Stress Disorder, Hx Inpatient Treatment, Hx Community Mental Health Tx, Hx Schizophrenia, Hx Bipolar Disorder, Hx Suicide Attempt, Hx of Violent Episodes Against Others, Other Psychiatric Issues/ Disorders - Cancer History Hx Chemotherapy: No Hx Radiation Therapy: No - Surgical History Surgical History: Yes Surgery Procedure, Year, and Place: gastric bypass Hx Anesthesia Reactions: No Infectious Disease History: No Infectious Disease History: Denies: Hx Clostridium Difficile, Hx Hepatitis, Hx Human Immunodeficiency Virus (HIV), Hx of Known/Suspected MRSA, Hx Shingles, Hx Tuberculosis, Hx Known/ Suspected VRE, Hx Known/Suspected VRSA, History Other Infectious Disease, Traveled Outside the [place] in Last 30 Days - Family History Known Family History: Positive: Cardiac Disease - [place] - father, Hypertension, Other - [place] - mother Family History: Father and mother with depression. Father with alcoholism, [place]. - Social History Alcohol Use: Daily Alcohol Amount: daily for the past 1 year Hx Substance Use: No Substance Use Type: Reports: None Hx Tobacco Use: No Smoking Status (MU): Never Smoked Tobacco Review of Systems Negative: Fever, Chills Cardiovascular: Negative Respiratory: Negative Gastrointestinal: Negative Psychological: Other - POSITIVE: SI thoughts Positive: Depressed. Negative: Other - NEGATIVE: HI All Other Systems Reviewed And Are Negative: Yes Physical Exam - Summary Physical Exam Summary: VITAL SIGNS: Reviewed. GENERAL: Patient is a well-developed and nourished female who is lying comfortable in the stretcher. Patient is not in any acute respiratory distress. HEAD AND FACE: No signs of trauma. No ecchymosis, hematomas or skull depressions. No sinus tenderness. Alcohol in her breath. EYES: PERRLA, EOMI x 2, No injected conjunctiva, no nystagmus. EARS: Hearing grossly intact. Ear canals and tympanic membranes are within normal limits. MOUTH: Oropharynx within normal limits. NECK: Supple, trachea is midline, no adenopathy, no JVD, no carotid bruit, no c- spine tenderness, neck with full ROM. CHEST: Symmetric, no tenderness at palpation. LUNGS: Clear to auscultation bilaterally. No wheezing or crackles. CVS: Regular rate and rhythm, S1 and S2 present, no murmurs or gallops appreciated. ABDOMEN: Soft, non-tender. No signs of distention. No rebound, no guarding, and no masses palpated. Bowel sounds are normal. EXTREMITIES: FROM in all major joints, no edema, no cyanosis or clubbing. NEURO: Alert and oriented x 3. No acute neurological deficits. Speech is normal and follows commands. SKIN: Dry and warm. PSYCH: Depressed, quiet. Positive suicidal thoughts. No homicidal thoughts or plan. No signs of psychosis or pressure speech. No tangential speech. Triage Information Reviewed: Yes Vital Signs On Initial Exam: Initial Vitals Temp Pulse Resp BP Pulse Ox 98.4 F 81 18 179/102 96 06/30/19 12:32 06/30/19 12:32 06/30/19 12:32 06/30/19 12:32 06/30/19 12:32 Vital Signs Reviewed: Yes Procedures - Sedation Patient Received Moderate/Deep Sedation with Procedure: No Diagnostics - Vital Signs Vital Signs Temp Pulse Resp BP Pulse Ox 06/30/19 12:32 98.4 F 81 18 179/102 96 - Laboratory Result Diagrams: 06/30/19 13:22 06/30/19 13:22 Lab Statement: Any lab studies that have been ordered have been reviewed, and results considered in the medical decision making process. Course/Dx - Course Assessment/Plan: This pt is a 49 y/o female [facility] c/o increased depression and SI. Pt reports she has been dealing with depression for the past 1 year but states it has worsened over the last couple of days. She notes recent stressor of "relationship issues" with her lately and has asked her to leave. Pt states she has SI thoughts with SI plan of overdosing on pills. She reports she has had prior suicide attempts by overdosing in the past. Pt admits to alcohol use and drinking alcohol today. Denies tobacco and drug use. PMHx: cysts. Blood work without a significant abnormality except for AG 13. Urinalysis negative for UTI. Urine toxicology is negative. Serum alcohol is 282. Patient will be medically cleared about 7:30 PM. Patient is signed out to Dr. Willard at shift change pending medical clearance and subsequent mental health evaluation. - Differential Dx/Clinical Impression Differential Diagnosis/HQI/PQRI: Positive: Anxiety, Depression, Suicidal Ideation Provider Diagnosis: Alcohol intoxication Discharge ED - Sign-Out/Discharge Documenting (check all that apply): Sign-Out Patient Signing out patient TO: Neil Willard - pending medical clearance and MHE - Discharge Plan Condition: Stable Referrals: Alfredito Ahmadi MD [Primary Care Provider] - - Billing Disposition and Condition Condition: STABLE - Attestation Statements Document Initiated by Marlaibprabhjot: Yes Documenting Scribe: Alicia Berger Provider For Whom Marlaibe is Documenting (Include Credential): Alexandre Ivey MD Scribe Attestation: Alicia Tolentino, scribed for Alexandre Ivey MD on 06/30/19 at 1846. Scribe Documentation Reviewed: Yes Provider Attestation: The documentation as recorded by the Alicia montgomery accurately reflects the service I personally performed and the decisions made by , Alexandre Ivey MD Status of Scribe Document: Viewed
[2019-06-30 13:33] LABS: ABS Basophils 0.1 10^3/ul (0-0.2); ABS Lymphocytes 1.8 10^3/ul (1.0-4.8); ABS Monocytes 0.3 10^3/ul (0-0.8); ABS Neutrophils 2.1 10^3/ul (1.5-7.7); Hematocrit 45 % (35-47); Lymphocyte % 41.8 %; Mean Corpuscular HGB Conc 33 g/dL (31-36); Mean Corpuscular Hemoglobin 32 pg (27-31); Mean Corpuscular Volume 95 fL (80-97); Mean Platelet Volume 6.2 fL (7.4-10.4); Nucleated Red Blood Cells % 0.1; Platelet Count 293 10^3/uL (150-450); Red Blood Count 4.77 10^6 /uL (3.70-4.87); Red Cell Distribution Width 14 % (10-15); White Blood Count 4.3 10^3/uL (3.5-10.8)
[2019-06-30 13:53] LABS: ALT 13 U/L (7-52); AST 23 U/L (13-39); Albumin 4.5 g/dL (3.2-5.2); Albumin/Globulin Ratio 1.4 (1-3); Alkaline Phosphatase 53 U/L (34-104); Anion Gap 13 mmol/L (2-11); BUN/Creatinine Ratio 15.9 (8-20); Blood Urea Nitrogen 11 mg/dL (6-24); CO2 Carbon Dioxide 25 mmol/L (22-32); Calcium 8.7 mg/dL (8.6-10.3); Chloride 103 mmol/L (101-111); EGFR African American 109.9 (>60); EGFR Non-African American 90.8 (>60); Globulin 3.3 g/dL (2-4); Glucose 90 mg/dL (70-100); Potassium 4.1 mmol/L (3.5-5.0); Sodium 141 mmol/L (135-145); Total Protein 7.8 g/dL (6.4-8.9)
[2019-06-30 14:01] LABS: Urine Appearance Cloudy; Urine Bilirubin Negative (Negative); Urine Blood 1+ (Negative); Urine Color Yellow; Urine Glucose Negative (Negative); Urine Ketones Negative (Negative); Urine Nitrite Negative (Negative); Urine Protein Negative (Negative); Urine Urobilinogen Negative (Negative)
[2019-06-30 14:04] LABS: Urine Bacteria 1+ (Absent); Urine Red Blood Cell Trace(0-2/hpf) (Absent); Urine Squamous Epithelial Cell Present (Absent); Urine White Blood Cell Trace(0-5/hpf) (Absent)
[2019-06-30 14:13] LABS: Acetaminophen < 15 mcg/mL; Alcohol 282 mg/dL (<10); Salicylate < 2.50 mg/dL (<30)
[2019-06-30 14:17] LABS: Urine Benzodiazepine Screen None Detected (None Detect); Urine Opiates Screen None Detected (None Detect)
[2019-06-30 14:24] LABS: TSH (Thyroid Stimulating Horm) 1.98 mcIU/mL (0.34-5.60)
[2019-06-30] MEDS: Ondansetron ODT TAB* 4 MG SL PRN ×2 (15:27→20:56)
[2019-06-30] MEDS ORDERED: Acetaminophen TAB* 325 MG PO ONE ×2 (16:07→20:48)
[2019-06-30] MEDS ORDERED: Lactated Ringers 1000 ML Bag* 1,000 ML IV ONE (17:00)
--- NOTE | 2019-06-30 19:21 | ED ---
Progress - Progress Note Progress Note: Pt is received as a sign out from Dr. Ivey at 1900 06/30/19 shift change, pending medical clearance for alcohol intoxication. Afterwards, patient to have MHE. Pt was medically cleared by Dr. Willard for MHE at 0012 and patient's case was reviewed by Dr. Liu at 0230. Pt was diagnosed with major depression. This diagnosis was reviewed by Dr. Willard at 0245 Course/Dx - Course Course Of Treatment: Pt is received as a sign out from Dr. Ivey at 1900 06/30/19 shift change, pending medical clearance for alcohol intoxication. Afterwards, patient to have MHE. Pt was medically cleared by Dr. Willard for MHE at 0012 and patient's case was reviewed by Dr. Liu at 0230. Pt was diagnosed with major depression. This diagnosis was reviewed by Dr. Willard at 0245 - Diagnoses Provider Diagnoses: Major depression - Provider Notifications Discussed Care Of Patient With: Hannah Liu Time Discussed With Above Provider: 02:30 Instructed by Provider To: Other - Pt was medically cleared by Dr. Sudheer escobedo MHE at 0012 and patient's case was reviewed by Dr. Liu at 0230. Pt was diagnosed with major depression. This diagnosis was reviewed by Dr. Willard at 0245 Discharge ED - Sign-Out/Discharge Documenting (check all that apply): Patient Departure - dc - Discharge Plan Condition: Stable Disposition: HOME Referrals: Alfredito Ahmadi MD [Primary Care Provider] - - Billing Disposition and Condition Condition: STABLE Disposition: Home - Attestation Statements Document Initiated by Ulises: Yes Documenting Scribe: Zoran West Provider For Whom Ulises is Documenting (Include Credential): Neil Willard MD Scribe Attestation: Zoran Tolentino and Valeriano West, scribed for Neil iWllard MD on at 0110. Scribe Documentation Reviewed: Yes Provider Attestation: The documentation as recorded by the ulises, Zoran West accurately reflects the service I personally performed and the decisions made by me, Neil Willard MD Status of Scribe Document: Viewed
[2019-06-30] MEDS ORDERED: LORazepam TAB(*) 1 MG PO ONE (21:02)
[2019-07-01 03:15] VITALS: BP 179/102
== END 2019-07-01 03:14 | disposition home or self-care (01) ==
LOC: ED 12:30
DX: F10.129 Alcohol abuse with intoxication, unspecified (principal); Y90.8 Blood alcohol level of 240 mg/100 ml or more; F32.9 Major depressive disorder, single episode, unspecified; R45.851 Suicidal ideations; I10 Essential (primary) hypertension; Z88.2 Allergy status to sulfonamides; Z91.040 Latex allergy status
CPT/HCPCS: 36415; 80053; 80307; 80320; 80329; 81003; 81015; 84443; 85025; 87086; 99285; A9270-GY; G0480

== ENCOUNTER 2019-09-29 13:48 | Inpatient (IN) | payer BC ==
[2019-09-29] MEDS ORDERED: Thiamine 100 MG/ML 2 ml VIAL (200 mg) IM ONE (13:55)
[2019-09-29] MEDS ORDERED: LORazepam 2 mg VIAL 1 ml IV PUSH SCH (14:00)
[2019-09-29] MEDS ORDERED: Lorazepam PYXIS KEY PRN (14:08)
[2019-09-29] MEDS ORDERED: NS 0.9% 1000 ml BAG 1,000 ML IV ONE (14:08)
[2019-09-29 14:17] LABS: ABS Lymphocytes 0.3 10^3/ul (1.0-4.8); ABS Monocytes 0.1 10^3/ul (0-0.8); Hematocrit 40 % (35-47); Hemoglobin 13.9 g/dL (12.0-16.0); Lymphocyte % 5.9 %; Mean Corpuscular HGB Conc 35 g/dL (31-36); Mean Corpuscular Hemoglobin 32 pg (27-31); Mean Corpuscular Volume 93 fL (80-97); Mean Platelet Volume 6.7 fL (7.4-10.4); Platelet Count 223 10^3/uL (150-450); Red Blood Count 4.29 10^6 /uL (3.70-4.87); Red Cell Distribution Width 16 % (10-15); White Blood Count 5.5 10^3/uL (3.5-10.8)
[2019-09-29 14:34] LABS: ALT 33 U/L (7-52); AST 48 U/L (13-39); Albumin 4.4 g/dL (3.2-5.2); Albumin/Globulin Ratio 1.3 (1-3); Alkaline Phosphatase 46 U/L (34-104); Anion Gap 16 mmol/L (2-11); BUN/Creatinine Ratio 14.1 (8-20); Blood Urea Nitrogen 10 mg/dL (6-24); CO2 Carbon Dioxide 21 mmol/L (22-32); Calcium 9.8 mg/dL (8.6-10.3); Chloride 100 mmol/L (101-111); Creatine Kinase 134 U/L (10-223); EGFR African American 106.3 (>60); EGFR Non-African American 87.9 (>60); Globulin 3.4 g/dL (2-4); Glucose 229 mg/dL (70-100); Potassium 4.3 mmol/L (3.5-5.0); Sodium 137 mmol/L (135-145); Total Protein 7.8 g/dL (6.4-8.9)
[2019-09-29 14:40] LABS: HCG Pregnancy < 0.60 mIU/mL
[2019-09-29 14:47] LABS: Acetaminophen < 15 mcg/mL; Alcohol, S < 10 mg/dL (<10); Salicylate < 2.50 mg/dL (<30)
[2019-09-29] MEDS ORDERED: Ondansetron 4 mg VIAL 2 MG/ML 2 ml VIAL IV ONE (16:19)
[2019-09-29] MEDS ORDERED: Al Hydrox/Mg Hydrox/Simet LIQ 30 ML UDC PO PRN (18:46)
[2019-09-29] MEDS ORDERED: Senna TAB 8.6 mg TAB PO PRN (18:46)
[2019-09-29] MEDS ORDERED: Ondansetron 4 mg VIAL 2 MG/ML 2 ml VIAL IV PRN (18:46)
[2019-09-29 18:58] LABS: INR 1.01 (0.82-1.09)
[2019-09-29] MEDS ORDERED: LORazepam 1 mg TAB (*) PO SCH (19:00)
[2019-09-29] MEDS ORDERED: hydrALAZINE 20 mg/ml 1 ML Vial IV IV SLOW PU PRN (19:50)
[2019-09-29] MEDS: LORazepam 1 mg TAB (*) PO SCH ×2 (22:16→22:50)
[2019-09-30] MEDS: Enoxaparin 40 MG/0.4 ML SYR(*) SUBCUT SCH ×2 (00:21→20:57)
[2019-09-30 02:48] LABS: Urine Benzodiazepine Screen Presumptive Positive (None Detect); Urine Opiates Screen None Detected (None Detect)
[2019-09-30] MEDS: LORazepam 1 mg TAB (*) PO SCH ×3 (03:25→23:35)
[2019-09-30 06:12] LABS: ABS Basophils 0.1 10^3/ul (0-0.2); ABS Lymphocytes 1.5 10^3/ul (1.0-4.8); ABS Monocytes 0.5 10^3/ul (0-0.8); Eosinophil % 0.9 %; Hematocrit 40 % (35-47); Hemoglobin 13.6 g/dL (12.0-16.0); Mean Corpuscular HGB Conc 34 g/dL (31-36); Mean Corpuscular Hemoglobin 32 pg (27-31); Mean Corpuscular Volume 94 fL (80-97); Mean Platelet Volume 7.2 fL (7.4-10.4); Nucleated Red Blood Cells % 0.1; Platelet Count 190 10^3/uL (150-450); Red Blood Count 4.25 10^6 /uL (3.70-4.87); Red Cell Distribution Width 16 % (10-15); White Blood Count 4.8 10^3/uL (3.5-10.8)
[2019-09-30 06:34] LABS: Albumin/Globulin Ratio 1.3 (1-3); BUN/Creatinine Ratio 17.6 (8-20); Calcium 9.4 mg/dL (8.6-10.3); EGFR African American 111.7 (>60); EGFR Non-African American 92.3 (>60); Globulin 3.1 g/dL (2-4); Potassium 3.3 mmol/L (3.5-5.0); Total Bilirubin 0.9 mg/dL (0.2-1.0); Total Protein 7.1 g/dL (6.4-8.9)
[2019-09-30] MEDS ORDERED: Potassium Chlor 20 meq TAB.ER PO ONE (07:25)
[2019-09-30 07:52] LABS: Magnesium 1.9 mg/dL (1.9-2.7)
[2019-09-30] MEDS: Fluticasone NASAL SPRAY 50MCG 16 gm SPRAY BTL BOTH NARES SCH (09:19)
[2019-09-30] MEDS: Multivitamins/Minerals TAB PO SCH (09:20)
[2019-09-30] MEDS: [UNRECOGNIZED DRUG - OTHER] PO SCH (09:21)
[2019-10-01] MEDS: Multivitamins/Minerals TAB PO SCH (08:45)
[2019-10-01] MEDS: [UNRECOGNIZED DRUG - OTHER] PO SCH (08:47)
[2019-10-01] MEDS: Fluticasone NASAL SPRAY 50MCG 16 gm SPRAY BTL BOTH NARES SCH (08:49)
[2019-10-01 10:43] VITALS: BP 121/69
== END 2019-10-01 13:40 | disposition home or self-care (01) | DRG 775 ==
LOC: ED 13:48 → MEDTELE 18:46
PROVIDERS: ADMIT Pediatrics; ATTEND Internal Medicine